=== PATIENT | female | born 1955 | race Caucasian/White ===

== ENCOUNTER 2016-09-01 10:33 | Emergency (ER) | payer OTHER ==
--- NOTE | 2016-09-01 11:38 | EDDOCDS ---
Nurse's Notes [facility] Name: Genny Branham Age: 60 yrs Sex: Female : 1955 Arrival Date: 09/01/2016 Time: 10:33 Bed Triage 3 Private MD: Ning Hall L. Diagnosis: Rash and other nonspecific skin eruption;Dermatitis, unspecified Presentation: 09/01 10:49 Presenting complaint: Patient states: has sore on right martinez and small spot on left po second toe. Adult Sepsis Screening: The patient does not have new or worsening altered mentation. Patient's respiratory rate is less than 22. Systolic blood pressure is greater than 100. Patient has a qSOFA score of 0- Negative Sepsis Screen. Suicide/Homicide risk assessment- the patient denies having any suicidal and/or homicidal ideations and does not present with any other emotional, behavioral or mental health complaints. Status: Patient is not a youth services librarian or dependent. Transition of care: patient was not received from another setting of care. 10:49 Acuity: LYNN Level 4 po 10:49 Method Of Arrival: Walkin/Carried/Asstd po Triage Assessment: 10:53 General: Appears in no apparent distress, Behavior is appropriate for age, cooperative. po Pain: Denies pain. HIV screening NA for this visit Offered previously. Neurological: No deficits noted. Respiratory: Airway is patent Respiratory effort is even, unlabored. Derm: Skin is pink, warm & dry. Historical: - Allergies: no known allergies; - Home Meds: 1. aspirin 81 mg Oral tab 1 tab once daily 2. atorvastatin 40 mg oral tab 1 tab nightly 3. Calcium + Vitamin D Oral 600 mg twice a day 4. Cardizem 120 mg Oral tab 1 tab daily 5. paroxetine HCl 40 mg Oral tab 1 tab once daily 6. Plavix 75 mg Oral tab 1 tab once daily 7. primidone 50 mg Oral tab 2 tabs twice a day 8. ropinirole 1 mg oral tab 1 tab 3 times per day 9. Symbicort 160-4.5 mcg/actuation inhalation aepb 2 puffs 2 times per day 10. Vitamin D Oral 50,000 unit weekly - PMHx: COPD; essential tremors; neuropathy; restless leg syndrome; PVD; - PSHx: Tonsillectomy; removal malignant melanoma rt leg; - Social history: Smoking status: Patient uses tobacco products, light tobacco smoker. No barriers to communication noted, The patient speaks fluent Sri Lankan. - Family history: Not pertinent. - : The pt / caregiver states he / she is on anticoagulants: Plavix. Home medication list is obtained from the patient. - Exposure Risk Screening:: None identified. Screenin:32 Screening information is obtained from the patient. Fall risk: No risks identified. ms18 Assistance ADL's: requires no assistance with activities of daily living. Abuse/DV Screen: The patient / caregiver reports he/she is: not in a situation that causes fear, pain or injury. Nutritional screening: No deficits noted. Advance Directives: There is no living will. home support is adequate. Assessment: 11:32 General: Appears in no apparent distress, comfortable, Behavior is appropriate for age, ms18 cooperative, pleasant. Pain: Denies pain. Neurological: No deficits noted. Respiratory: No deficits noted. Derm: Skin is pink, warm & dry. pt has a blister to her L lower leg, mid martinez. No bleeding, scabbed over. Vital Signs: 10:36 BP 156 / 83; Pulse 50; Resp 18; Temp 97.8(O); Pulse Ox 99% on R/A; Weight 58.97 kg (R); sar1 Height 5 ft. 8 in. (172.72 cm) (R); Pain 0/10; 11:32 BP 129 / 73; Pulse 73; Resp 18; Pulse Ox 98% ; Pain 3/10; ms18 10:36 Body Mass Index 19.77 (58.97 kg, 172.72 cm) sar1 Vitals: 10:36 Log In Time: September 01, 2016 at 10:36. sar1 ED Course: 10:36 Patient visited by Pippa Earl, Meat Washer. sar1 10:36 Ning Hall is Private Physician. sar1 10:36 Patient moved to Waiting sar1 10:38 Patient moved to Pre RCE sar1 10:51 Triage Initiated po 10:53 Arm band placed on right wrist. Patient placed in waiting room. po 10:56 Patient visited by Jose D Johansen RN. po 11:00 Patient moved to Triage 3 mlb1 11:13 [facility] cc10 11:13 Genny Katz MD is Attending Physician. cc10 11:13 Patient visited by José Romo PA-C. cc10 11:13 Patient visited by José Romo PA-C. cc10 11:29 Ning Hall is Referral Physician. cc10 11:32 Patient visited by Margarita Patiño,LAYA. ms18 11:32 The patient / caregiver is instructed regarding the plan of care and ED course. ms18 Accompanied by Significant Other, Patient has correct armband on for positive identification. Property :Personal belongings accompany Pt. 11:32 No IV's were initiated during this patient's visit. No procedures done that require ms18 assistance. Order Results: There are currently no results for this order. Outcome: 11:29 Discharge ordered by Provider. cc10 11:32 Discharge Assessment: Patient awake, alert and oriented x 3. No cognitive and/or ms18 functional deficits noted. Patient verbalized understanding of disposition instructions. patient administered narcotics - no. The following High Risk Discharge criteria are identified: None. Discharged to home ambulatory, with significant other. Condition: good Condition: stable Condition: improved. Discharge instructions given to patient, Instructed on discharge instructions, follow up and referral plans. Demonstrated understanding of instructions, Pt was receptive of discharge instructions/ teaching. No special radiology studies were completed. 11:38 Patient left the ED. ms18 Signatures: Jose D Johansen,RN RN Sebastien Smith RN RN mlb1 José Romo PA-C PA-C cc10 Margarita Patiño,LAYA RN ms18 Pippa Earl, Meat Washer Unit [facility] Corrections: (The following items were deleted from the chart) 11:04 10:53 The pt / caregiver states he / she is not on anticoagulants. po po MTDD
--- NOTE | 2016-09-01 11:38 | EDDOCDS ---
Physician Documentation [facility] Name: Genny Branham Age: 60 yrs Sex: Female : 1955 Arrival Date: 09/01/2016 Time: 10:33 Bed Triage 3 Private MD: Ning Hall L. Disposition: 09/01/16 11:29 Discharged to Home/Self Care. Impression: Rash and other nonspecific skin eruption, Dermatitis, unspecified. - Condition is Stable. - Discharge Instructions: Blister, Hand Dermatitis, Rash. - Medication Reconciliation form. - Follow up: Emergency Department; When: As needed. Follow up: Ning Hall; When: Call to arrange an appointment; Reason: Wound/Symptom Recheck, Recheck today's complaints, Worsening of conditions, Continuance of care. - Problem is an ongoing problem. - Symptoms are unchanged. Historical: - Allergies: no known allergies; - Home Meds: 1. aspirin 81 mg Oral tab 1 tab once daily 2. atorvastatin 40 mg oral tab 1 tab nightly 3. Calcium + Vitamin D Oral 600 mg twice a day 4. Cardizem 120 mg Oral tab 1 tab daily 5. paroxetine HCl 40 mg Oral tab 1 tab once daily 6. Plavix 75 mg Oral tab 1 tab once daily 7. primidone 50 mg Oral tab 2 tabs twice a day 8. ropinirole 1 mg oral tab 1 tab 3 times per day 9. Symbicort 160-4.5 mcg/actuation inhalation aepb 2 puffs 2 times per day 10. Vitamin D Oral 50,000 unit weekly - PMHx: COPD; essential tremors; neuropathy; restless leg syndrome; PVD; - PSHx: Tonsillectomy; removal malignant melanoma rt leg; - Social history: Smoking status: Patient uses tobacco products, light tobacco smoker. No barriers to communication noted, The patient speaks fluent British. - Family history: Not pertinent. - : The pt / caregiver states he / she is on anticoagulants: Plavix. Home medication list is obtained from the patient. - Exposure Risk Screening:: None identified. Vital Signs: 09/01 10:36 BP 156 / 83; Pulse 50; Resp 18; Temp 97.8(O); Pulse Ox 99% on R/A; Weight 58.97 kg / sar1 130.01 lbs (R); Height 5 ft. 8 in. (172.72 cm) (R); Pain 0/10; 11:32 BP 129 / 73; Pulse 73; Resp 18; Pulse Ox 98% ; Pain 3/10; ms18 10:36 Body Mass Index 19.77 (58.97 kg, 172.72 cm) sar1 MDM: 11:35 Financial registration complete. mm15 Signatures: Jose D Johansen RN RN po Jc Mendez mm15 José Romo PAJoyC PA-C cc10 Margarita Patiño RN RN ms18 The chart was reviewed and I authenticate all verbal orders and agree with the evaluation and treatment provided.Corrections: (The following items were deleted from the chart) 11:04 10:53 The pt / caregiver states he / she is not on anticoagulants. po po MTDD
--- NOTE | 2016-09-03 12:38 | EDDOCDS ---
Physician Documentation [facility] Name: Genny Branham Age: 60 yrs Sex: Female : 1955 Arrival Date: 09/01/2016 Time: 10:33 Bed Triage 3 Private MD: Ning Hall L. Disposition: 09/01/16 11:29 Discharged to Home/Self Care. Impression: Rash and other nonspecific skin eruption, Dermatitis, unspecified. - Condition is Stable. - Discharge Instructions: Blister, Hand Dermatitis, Rash. - Medication Reconciliation form. - Follow up: Emergency Department; When: As needed. Follow up: Ning Hall; When: Call to arrange an appointment; Reason: Wound/Symptom Recheck, Recheck today's complaints, Worsening of conditions, Continuance of care. - Problem is an ongoing problem. - Symptoms are unchanged. Historical: - Allergies: no known allergies; - Home Meds: 1. aspirin 81 mg Oral tab 1 tab once daily 2. atorvastatin 40 mg oral tab 1 tab nightly 3. Calcium + Vitamin D Oral 600 mg twice a day 4. Cardizem 120 mg Oral tab 1 tab daily 5. paroxetine HCl 40 mg Oral tab 1 tab once daily 6. Plavix 75 mg Oral tab 1 tab once daily 7. primidone 50 mg Oral tab 2 tabs twice a day 8. ropinirole 1 mg oral tab 1 tab 3 times per day 9. Symbicort 160-4.5 mcg/actuation inhalation aepb 2 puffs 2 times per day 10. Vitamin D Oral 50,000 unit weekly - PMHx: COPD; essential tremors; neuropathy; restless leg syndrome; PVD; - PSHx: Tonsillectomy; removal malignant melanoma rt leg; - Social history: Smoking status: Patient uses tobacco products, light tobacco smoker. No barriers to communication noted, The patient speaks fluent Bulgarian. - Family history: Not pertinent. - : The pt / caregiver states he / she is on anticoagulants: Plavix. Home medication list is obtained from the patient. - Exposure Risk Screening:: None identified. Vital Signs: 09/01 10:36 BP 156 / 83; Pulse 50; Resp 18; Temp 97.8(O); Pulse Ox 99% on R/A; Weight 58.97 kg / sar1 130.01 lbs (R); Height 5 ft. 8 in. (172.72 cm) (R); Pain 0/10; 11:32 BP 129 / 73; Pulse 73; Resp 18; Pulse Ox 98% ; Pain 3/10; ms18 10:36 Body Mass Index 19.77 (58.97 kg, 172.72 cm) sar1 MDM: 11:35 Financial registration complete. mm15 12:55 [facility] Payment Agreement was scanned into [employer] and attached to record. mm15 17:00 T-Sheet-- Draft Copy was scanned into [employer] and attached to record. klr Signatures: Jose D Johansen,RN RN po Jc Mendez mm15 José Romo PAJoyC PAJoyC cc10 Margarita Patiño RN RN ms18 Allison Quiroz klr The chart was reviewed and I authenticate all verbal orders and agree with the evaluation and treatment provided.Corrections: (The following items were deleted from the chart) 11:04 10:53 The pt / caregiver states he / she is not on anticoagulants. po po Attachments: 12:55 [facility] [place] Payment Agreement mm15 17:00 T-Sheet-- Draft Copy klr Chart Complete MTDD
--- NOTE | 2016-09-03 12:38 | EDDOCDS ---
Physician Documentation [facility] Name: Genny Branham Age: 60 yrs Sex: Female : 1955 Arrival Date: 09/01/2016 Time: 10:33 Bed Triage 3 Private MD: Ning Hall L. Disposition: 09/01/16 11:29 Discharged to Home/Self Care. Impression: Rash and other nonspecific skin eruption, Dermatitis, unspecified. - Condition is Stable. - Discharge Instructions: Blister, Hand Dermatitis, Rash. - Medication Reconciliation form. - Follow up: Emergency Department; When: As needed. Follow up: Ning Hall; When: Call to arrange an appointment; Reason: Wound/Symptom Recheck, Recheck today's complaints, Worsening of conditions, Continuance of care. - Problem is an ongoing problem. - Symptoms are unchanged. Historical: - Allergies: no known allergies; - Home Meds: 1. aspirin 81 mg Oral tab 1 tab once daily 2. atorvastatin 40 mg oral tab 1 tab nightly 3. Calcium + Vitamin D Oral 600 mg twice a day 4. Cardizem 120 mg Oral tab 1 tab daily 5. paroxetine HCl 40 mg Oral tab 1 tab once daily 6. Plavix 75 mg Oral tab 1 tab once daily 7. primidone 50 mg Oral tab 2 tabs twice a day 8. ropinirole 1 mg oral tab 1 tab 3 times per day 9. Symbicort 160-4.5 mcg/actuation inhalation aepb 2 puffs 2 times per day 10. Vitamin D Oral 50,000 unit weekly - PMHx: COPD; essential tremors; neuropathy; restless leg syndrome; PVD; - PSHx: Tonsillectomy; removal malignant melanoma rt leg; - Social history: Smoking status: Patient uses tobacco products, light tobacco smoker. No barriers to communication noted, The patient speaks fluent Vincentian. - Family history: Not pertinent. - : The pt / caregiver states he / she is on anticoagulants: Plavix. Home medication list is obtained from the patient. - Exposure Risk Screening:: None identified. Vital Signs: 09/01 10:36 BP 156 / 83; Pulse 50; Resp 18; Temp 97.8(O); Pulse Ox 99% on R/A; Weight 58.97 kg / sar1 130.01 lbs (R); Height 5 ft. 8 in. (172.72 cm) (R); Pain 0/10; 11:32 BP 129 / 73; Pulse 73; Resp 18; Pulse Ox 98% ; Pain 3/10; ms18 10:36 Body Mass Index 19.77 (58.97 kg, 172.72 cm) sar1 MDM: 11:35 Financial registration complete. mm15 12:55 [facility] Payment Agreement was scanned into [employer] and attached to record. mm15 17:00 T-Sheet-- Draft Copy was scanned into [employer] and attached to record. klr Signatures: Jose D Johansen,RN RN po Jc Mendez mm15 José Romo PAJoyC PAJoyC cc10 Margarita Patiño RN RN ms18 Allison Quiroz klr The chart was reviewed and I authenticate all verbal orders and agree with the evaluation and treatment provided.Corrections: (The following items were deleted from the chart) 11:04 10:53 The pt / caregiver states he / she is not on anticoagulants. po po Attachments: 12:55 [facility] [place] Payment Agreement mm15 17:00 T-Sheet-- Draft Copy klr Chart Complete MTDD
--- NOTE | 2016-09-03 12:38 | EDDOCDS ---
Nurse's Notes [facility] Name: Genny Branham Age: 60 yrs Sex: Female : 1955 Arrival Date: 09/01/2016 Time: 10:33 Bed Triage 3 Private MD: Ning Hall L. Diagnosis: Rash and other nonspecific skin eruption;Dermatitis, unspecified Presentation: 09/01 10:49 Presenting complaint: Patient states: has sore on right martinez and small spot on left po second toe. Adult Sepsis Screening: The patient does not have new or worsening altered mentation. Patient's respiratory rate is less than 22. Systolic blood pressure is greater than 100. Patient has a qSOFA score of 0- Negative Sepsis Screen. Suicide/Homicide risk assessment- the patient denies having any suicidal and/or homicidal ideations and does not present with any other emotional, behavioral or mental health complaints. Status: Patient is not a financial services auditor or dependent. Transition of care: patient was not received from another setting of care. 10:49 Acuity: LYNN Level 4 po 10:49 Method Of Arrival: Walkin/Carried/Asstd po Triage Assessment: 10:53 General: Appears in no apparent distress, Behavior is appropriate for age, cooperative. po Pain: Denies pain. HIV screening NA for this visit Offered previously. Neurological: No deficits noted. Respiratory: Airway is patent Respiratory effort is even, unlabored. Derm: Skin is pink, warm & dry. Historical: - Allergies: no known allergies; - Home Meds: 1. aspirin 81 mg Oral tab 1 tab once daily 2. atorvastatin 40 mg oral tab 1 tab nightly 3. Calcium + Vitamin D Oral 600 mg twice a day 4. Cardizem 120 mg Oral tab 1 tab daily 5. paroxetine HCl 40 mg Oral tab 1 tab once daily 6. Plavix 75 mg Oral tab 1 tab once daily 7. primidone 50 mg Oral tab 2 tabs twice a day 8. ropinirole 1 mg oral tab 1 tab 3 times per day 9. Symbicort 160-4.5 mcg/actuation inhalation aepb 2 puffs 2 times per day 10. Vitamin D Oral 50,000 unit weekly - PMHx: COPD; essential tremors; neuropathy; restless leg syndrome; PVD; - PSHx: Tonsillectomy; removal malignant melanoma rt leg; - Social history: Smoking status: Patient uses tobacco products, light tobacco smoker. No barriers to communication noted, The patient speaks fluent Swedish. - Family history: Not pertinent. - : The pt / caregiver states he / she is on anticoagulants: Plavix. Home medication list is obtained from the patient. - Exposure Risk Screening:: None identified. Screenin:32 Screening information is obtained from the patient. Fall risk: No risks identified. ms18 Assistance ADL's: requires no assistance with activities of daily living. Abuse/DV Screen: The patient / caregiver reports he/she is: not in a situation that causes fear, pain or injury. Nutritional screening: No deficits noted. Advance Directives: There is no living will. home support is adequate. Assessment: 11:32 General: Appears in no apparent distress, comfortable, Behavior is appropriate for age, ms18 cooperative, pleasant. Pain: Denies pain. Neurological: No deficits noted. Respiratory: No deficits noted. Derm: Skin is pink, warm & dry. pt has a blister to her L lower leg, mid martinez. No bleeding, scabbed over. Vital Signs: 10:36 BP 156 / 83; Pulse 50; Resp 18; Temp 97.8(O); Pulse Ox 99% on R/A; Weight 58.97 kg (R); sar1 Height 5 ft. 8 in. (172.72 cm) (R); Pain 0/10; 11:32 BP 129 / 73; Pulse 73; Resp 18; Pulse Ox 98% ; Pain 3/10; ms18 10:36 Body Mass Index 19.77 (58.97 kg, 172.72 cm) sar1 Vitals: 10:36 Log In Time: September 01, 2016 at 10:36. sar1 ED Course: 10:36 Patient visited by Pippa Earl, Web Manager. sar1 10:36 Ning Hall is Private Physician. sar1 10:36 Patient moved to Waiting sar1 10:38 Patient moved to Pre RCE sar1 10:51 Triage Initiated po 10:53 Arm band placed on right wrist. Patient placed in waiting room. po 10:56 Patient visited by Jose D Johansen RN. po 11:00 Patient moved to Triage 3 mlb1 11:13 José Rom[facility] PA-C [facility]. cc10 11:13 Genny Katz MD is Attending Physician. cc10 11:13 Patient visited by José Romo PA-C. cc10 11:13 Patient visited by José Romo PA-C. cc10 11:29 Ning Hall is Referral Physician. cc10 11:32 Patient visited by Margarita Patiño RN. ms18 11:32 The patient / caregiver is instructed regarding the plan of care and ED course. ms18 Accompanied by Significant Other, Patient has correct armband on for positive identification. Property :Personal belongings accompany Pt. 11:32 No IV's were initiated during this patient's visit. No procedures done that require ms18 assistance. 12:55 [facility] Agreement was scanned into [employer] and attached to record. mm15 17:00 T-Sheet-- Draft Copy was scanned into [employer] and attached to record. klr Order Results: There are currently no results for this order. Outcome: 11:29 Discharge ordered by Provider. cc10 11:32 Discharge Assessment: Patient awake, alert and oriented x 3. No cognitive and/or ms18 functional deficits noted. Patient verbalized understanding of disposition instructions. patient administered narcotics - no. The following High Risk Discharge criteria are identified: None. Discharged to home ambulatory, with significant other. Condition: good Condition: stable Condition: improved. Discharge instructions given to patient, Instructed on discharge instructions, follow up and referral plans. Demonstrated understanding of instructions, Pt was receptive of discharge instructions/ teaching. No special radiology studies were completed. 11:38 Patient left the ED. ms18 Signatures: Jose D JohansenRN Sebastien Villatoro RN RN mlb1 Jc Mendez mm15 José Romo PA-C PA-C cc10 Margarita Patiño,LAYA RN ms18 Pippa Earl, Web Manager Unit Allison Huerta Corrections: (The following items were deleted from the chart) 11:04 10:53 The pt / caregiver states he / she is not on anticoagulants. po po Chart Complete MTDD
== END 2016-09-01 11:38 | disposition home or self-care (01) ==
LOC: M ED 10:33
DX: L30.9 Dermatitis, unspecified (principal); R21 Rash and other nonspecific skin eruption; J44.9 Chronic obstructive pulmonary disease, unspecified; G62.9 Polyneuropathy, unspecified; G25.81 Restless legs syndrome; I73.9 Peripheral vascular disease, unspecified; G25.0 Essential tremor; Z85.820 Personal history of malignant melanoma of skin; Z72.0 Tobacco use; Z79.01 Long term (current) use of anticoagulants; Z79.82 Long term (current) use of aspirin; Z79.899 Other long term (current) drug therapy

== ENCOUNTER 2016-09-10 08:33 | Emergency (ER) | payer OTHER ==
[2016-09-10] MEDS ORDERED: METOCLOPRAMIDE INJ 10MG/2ML VIAL (J2765) As Ordered ONE (09:11)
--- NOTE | 2016-09-10 09:43 | REP ---
Clinical: Headache . Comparison: 06/15/2015 . Findings: The ventricles, sulci, and cisterns are normal in position and appearance. Thomas-white differentiation is maintained. No acute intracranial hemorrhage, mass/mass effect, pathology or trauma/injury. No evidence for acute infarction. No extra-axial fluid collection. Calvarium is intact. Paranasal sinuses and mastoid air cells are clear. Impression: Normal noncontrast head CT. No evidence for acute intracranial pathology or trauma/injury. Signed by Parth Hinojosa MD 09/10/2016 09:34 A
[2016-09-10] MEDS ORDERED: AUGMENTIN 875 MG TAB As Ordered ONE (10:16)
--- NOTE | 2016-09-10 10:21 | EDDOCDS ---
Nurse's Notes [facility] Name: Genny Branham Age: 60 yrs Sex: Female : 1955 Arrival Date: 09/10/2016 Time: 08:33 Bed I3 / M3 Private MD: Ning Hall L. Diagnosis: Headache-Acute;Acute sinusitis Presentation: 09/10 08:38 Presenting complaint: Patient states: Headaches on and off for a couple months, usually dwg in the AM. This patient has no additional risk factors. Adult Sepsis Screening: The patient does not have new or worsening altered mentation. Patient's respiratory rate is less than 22. Systolic blood pressure is greater than 100. Patient has a qSOFA score of 0- Negative Sepsis Screen. Suicide/Homicide risk assessment- the patient denies having any suicidal and/or homicidal ideations and does not present with any other emotional, behavioral or mental health complaints. 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 Transition of care: patient was not received from another setting of care. 08:38 Acuity: LYNN Level 3 dwg 08:38 Method Of Arrival: Walkin/Carried/Asstd dwg Triage Assessment: 08:45 Headache History: Other Has had headaches since 2015. General: Appears dwg uncomfortable. Pain: Pain currently is 8 out of 10 on a pain scale. HIV screening NA for this visit Offered previously. Historical: - Allergies: no known allergies; - Home Meds: 1. aspirin 81 mg Oral tab 1 tab once daily (Last dose: 09/10/2016) 2. atorvastatin 40 mg oral tab 1 tab nightly (Last dose: 09/09/2016 20:00) 3. Calcium + Vitamin D Oral 600 mg twice a day (Last dose: 09/10/2016) 4. Cardizem 120 mg Oral tab 1 tab daily (Last dose: 09/10/2016) 5. paroxetine HCl 40 mg Oral tab 1 tab once daily (Last dose: 09/10/2016) 6. Plavix 75 mg Oral tab 1 tab once daily (Last dose: 09/10/2016) 7. primidone 50 mg Oral tab 2 tabs twice a day (Last dose: 09/10/2016) 8. ropinirole 1 mg oral tab 1 tab 3 times per day (Last dose: 09/10/2016) 9. Symbicort 160-4.5 mcg/actuation inhalation aepb 2 puffs 2 times per day (Last dose: 09/10/2016) 10. Vitamin D Oral 96490 unit weekly (Last dose: 09/09/2016) - PMHx: COPD; essential tremors; Hypercholesterolemia; neuropathy; PVD; restless leg syndrome; - PSHx: Tonsillectomy; Removal of malignant melanoma right lower leg 2011; - Social history: Smoking status: Patient uses tobacco products, current every day smoker. No barriers to communication noted, The patient speaks fluent Tristanian. - Family history: Not pertinent. - : The pt / caregiver states he / she is on anticoagulants: Plavix. Home medication list is obtained from the patient. - Exposure Risk Screening:: None identified. Screenin:12 Screening information is obtained from the patient. Primary language is Tristanian. Fall jam1 risk: No risks identified. Assistance ADL's: requires no assistance with activities of daily living. Abuse/DV Screen: The patient / caregiver reports he/she is: not in a situation that causes fear, pain or injury. Nutritional screening: No deficits noted. Exposure Risk Screening: None identified. Advance Directives: Currently, there is no health care proxy. There is no active DNR order. There is no living will. There is no Power of Ophthalmology Assistant. Advance directive information has not previously been placed in an [facility] medical record. Further advance directive information is declined. home support is adequate. Assessment: 09:21 General: Appears in no apparent distress, comfortable. Pain: Location: right taoism kr3 Pain currently is 8 out of 10 on a pain scale. 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 Speech is normal, Facial symmetry appears normal. Respiratory: Respiratory effort is even, unlabored. Derm: Skin is normal. 10:18 Reassessment: Patient appears in no apparent distress at this time. Patient states kr3 feeling better. Pain: Location: right taoism Pain currently is 5 out of 10 on a pain scale. Neurological: No deficits noted. Respiratory: Respiratory effort is even, unlabored. Derm: Skin is normal. Vital Signs: 08:45 BP 151 / 83; Pulse 73; Resp 20; Temp 96.6(O); Pulse Ox 95% on R/A; Weight 56.7 kg; dwg Height 5 ft. 9 in. (175.26 cm); Pain 8/10; 10:17 BP 127 / 70; Pulse 66; Resp 16; Temp 97.8(T); Pulse Ox 96% on R/A; Pain 5/10; kr3 08:45 Body Mass Index 18.46 (56.70 kg, 175.26 cm) [facility] Vitals: 08:45 Log In Time: September 10, 2016 at 08:33. [facility] ED Course: 08:35 Patient visited by Melvin Ramon, Reg. pm4 08:35 Ning Hall is Private Physician. pm4 08:35 Patient moved to Waiting pm4 08:42 Triage Initiated dwg 08:48 Patient moved to I3 / M3 dwg 08:50 [facility] Gustaf[facility] ef1 08:50 Genny Katz MD is Attending Physician. ef1 08:50 Patient visited by Lily Gustafson PA-C. ef1 09:11 Patient visited by Lily Gustafson PA-C. ef1 09:12 Pt greeted and oriented to ED. Patient advised of names of staff involved in care, jam1 location of call stephens, wait times and NPO status. Patient has correct armband on for positive identification. Bed in low position. Call light in reach. Side rails up X 1. Door closed. 09:21 Inserted saline lock: 20 gauge in left forearm. No procedures done that require kr3 assistance. 09:23 The patient / caregiver is instructed regarding the plan of care and ED course. kr3 09:30 [facility] Payment Agreement was scanned into [employer] and attached to record. mm15 09:42 Patient visited by Lily Gustafson PA-C. ef1 09:59 CT Head Without Contrast Returned. EDMS 10:07 Patient visited by Lily Gustafson PA-C. ef1 10:14 Ning Hall is Referral Physician. ef1 10:14 Andres Walker is Referral Physician. ef1 10:17 Discontinued lock intact, bleeding controlled, pressure dressing applied, No kr3 redness/swelling at site. Administered Medications: 09:21 Drug: Metoclopramide 10 mg [metoclopramide 5 mg/mL injection solution] Route: IV; Rate: kr3 40 mg/hr; Infused Over: 15 mins; Site: left forearm; 09:47 Follow up: IV Status: Completed infusion; IV Intake: 10ml mcp 10:20 Drug: Amoxicillin-Clavulanate 1 tabs [amoxicillin 875 mg-potassium clavulanate 125 mg mcp tablet (1 tabs)] Route: PO; Intake: 09:47 IV: 10.00ml; Total: 10.00ml. mcp Order Results: Radiology Order: CT Head Without Contrast Test: CT Head Without Contrast REASON FOR EXAMINATION: Change in headaches; Clinical: Headache .; ; Comparison: 06/15/2015 .; ; Findings:; The ventricles, sulci, and cisterns are normal in position and appearance.; Thomas-white differentiation is maintained. No acute intracranial hemorrhage,; mass/mass effect, pathology or trauma/injury. No evidence for acute infarction.; No extra-axial fluid collection. Calvarium is intact. Paranasal sinuses and; mastoid air cells are clear.; ; Impression:; Normal noncontrast head CT.; No evidence for acute intracranial pathology or trauma/injury.; ; ; Signed by; Parth Hinojosa MD 09/10/2016 09:34 A; Outcome: 10:14 Discharge ordered by Provider. ef1 10:18 CT Study completed. kr3 10:20 Discharge Assessment: Patient awake, alert and oriented x 3. No cognitive and/or mcp functional deficits noted. Patient verbalized understanding of disposition instructions. patient administered narcotics - no. The following High Risk Discharge criteria are identified: None. Discharged to home ambulatory, with family. Condition: stable. Discharge instructions given to patient, Instructed on discharge instructions, follow up and referral plans. medication usage, Demonstrated understanding of instructions, medications, Pt was receptive of discharge instructions/ teaching. Prescriptions given X 3. Property sent home with patient. 10:21 Patient left the ED. [facility] Signatures: Dispatcher [employer] EDMickey Parra RN RN dwg Peters, Mary, RN RN mcp Murphy, Jane, DELIMER DELIMER jam1 Betsy Gregory RN RN kr3 Lily Gustafson, PA-C PA-C ef1 Jc Mendez mm15 Melvin Ramon, Reg Reg pm4 MTDD
--- NOTE | 2016-09-10 10:21 | EDDOCDS ---
Physician Documentation [facility] Name: Genny Branham Age: 60 yrs Sex: Female : 1955 Arrival Date: 09/10/2016 Time: 08:33 Bed I3 / M3 Private MD: Ning Hall L. Disposition: 09/10/16 10:14 Discharged to Home/Self Care. Impression: Headache - Acute, Acute sinusitis. - Condition is Stable. - Discharge Instructions: General Headache Without Cause, Sinusitis, Adult. - Prescriptions for Augmentin 875- 125 mg Oral Tablet - take 1 tablet by ORAL route every 12 hours for 10 days; 20 tablet. Claritin 10 mg Oral Tablet - take 1 tablet by ORAL route once daily As needed; 30 tablet. Mucinex 600 mg - take 1 tablet by ORAL route 2 times per day; 30 tablet. - Medication Reconciliation, Local Pharmacy Hours form. - Follow up: Ning Hall; When: 1 - 2 days; Reason: Recheck today's complaints, Continuance of care. Follow up: Emergency Department; Reason: Worsening of conditions. Follow up: Andres Walker; When: Call to arrange an appointment; Reason: Further diagnostic work-up, Recheck today's complaints, Continuance of care. - Problem is new. - Symptoms have improved. Historical: - Allergies: no known allergies; - Home Meds: 1. aspirin 81 mg Oral tab 1 tab once daily (Last dose: 09/10/2016) 2. atorvastatin 40 mg oral tab 1 tab nightly (Last dose: 09/09/2016 20:00) 3. Calcium + Vitamin D Oral 600 mg twice a day (Last dose: 09/10/2016) 4. Cardizem 120 mg Oral tab 1 tab daily (Last dose: 09/10/2016) 5. paroxetine HCl 40 mg Oral tab 1 tab once daily (Last dose: 09/10/2016) 6. Plavix 75 mg Oral tab 1 tab once daily (Last dose: 09/10/2016) 7. primidone 50 mg Oral tab 2 tabs twice a day (Last dose: 09/10/2016) 8. ropinirole 1 mg oral tab 1 tab 3 times per day (Last dose: 09/10/2016) 9. Symbicort 160-4.5 mcg/actuation inhalation aepb 2 puffs 2 times per day (Last dose: 09/10/2016) 10. Vitamin D Oral 23389 unit weekly (Last dose: 09/09/2016) - PMHx: COPD; essential tremors; Hypercholesterolemia; neuropathy; PVD; restless leg syndrome; - PSHx: Tonsillectomy; Removal of malignant melanoma right lower leg 2011; - Social history: Smoking status: Patient uses tobacco products, current every day smoker. No barriers to communication noted, The patient speaks fluent Pashto. - Family history: Not pertinent. - : The pt / caregiver states he / she is on anticoagulants: Plavix. Home medication list is obtained from the patient. - Exposure Risk Screening:: None identified. Vital Signs: 09/10 08:45 BP 151 / 83; Pulse 73; Resp 20; Temp 96.6(O); Pulse Ox 95% on R/A; Weight 56.7 kg / 125 dwg lbs; Height 5 ft. 9 in. (175.26 cm); Pain 8/10; 10:17 BP 127 / 70; Pulse 66; Resp 16; Temp 97.8(T); Pulse Ox 96% on R/A; Pain 5/10; kr3 08:45 Body Mass Index 18.46 (56.70 kg, 175.26 cm) dwg MDM: 09:08 IV Saline Lock ordered. ef1 09:08 Metoclopramide 10 mg IV at 40 mg/hr once over 15 mins ordered. ef1 09:09 CT Head Without Contrast Ordered. EDRI 09:30 Financial registration complete. mm15 09:30 REPLACED BY [facility] Payment Agreement was scanned into [employer] and attached to record. mm15 10:13 Amoxicillin-Clavulanate 875 mg 1 tabs PO once ordered. ef1 Administered Medications: 09:21 Drug: Metoclopramide 10 mg [metoclopramide 5 mg/mL injection solution] Route: IV; Rate: kr3 40 mg/hr; Infused Over: 15 mins; Site: left forearm; 09:47 Follow up: IV Status: Completed infusion; IV Intake: 10ml mcp 10:20 Drug: Amoxicillin-Clavulanate 1 tabs [amoxicillin 875 mg-potassium clavulanate 125 mg mcp tablet (1 tabs)] Route: PO; Signatures: Dispatcher [employer] Track EDMS Mickey Dickson, Shannan Wilkerson RN, RN RN mcp Feola, Erica, PAJoyC PA-C ef1 Jc Mendez mm15 Betsy Gregory RN kr3 The chart was reviewed and I authenticate all verbal orders and agree with the evaluation and treatment provided.Attachments: REPLACED BY [facility] Payment Agreement mm15 MTDD
--- NOTE | 2016-09-12 11:21 | EDDOCDS ---
Physician Documentation [facility] Name: Genny Brahnam Age: 60 yrs Sex: Female : 1955 Arrival Date: 09/10/2016 Time: 08:33 Bed I3 / M3 Private MD: Ning Hall L. Disposition: 09/10/16 10:14 Discharged to Home/Self Care. Impression: Headache - Acute, Acute sinusitis. - Condition is Stable. - Discharge Instructions: General Headache Without Cause, Sinusitis, Adult. - Prescriptions for Augmentin 875- 125 mg Oral Tablet - take 1 tablet by ORAL route every 12 hours for 10 days; 20 tablet. Claritin 10 mg Oral Tablet - take 1 tablet by ORAL route once daily As needed; 30 tablet. Mucinex 600 mg - take 1 tablet by ORAL route 2 times per day; 30 tablet. - Medication Reconciliation, Local Pharmacy Hours form. - Follow up: Ning Hall; When: 1 - 2 days; Reason: Recheck today's complaints, Continuance of care. Follow up: Emergency Department; Reason: Worsening of conditions. Follow up: Andres Walker; When: Call to arrange an appointment; Reason: Further diagnostic work-up, Recheck today's complaints, Continuance of care. - Problem is new. - Symptoms have improved. Historical: - Allergies: no known allergies; - Home Meds: 1. aspirin 81 mg Oral tab 1 tab once daily (Last dose: 09/10/2016) 2. atorvastatin 40 mg oral tab 1 tab nightly (Last dose: 09/09/2016 20:00) 3. Calcium + Vitamin D Oral 600 mg twice a day (Last dose: 09/10/2016) 4. Cardizem 120 mg Oral tab 1 tab daily (Last dose: 09/10/2016) 5. paroxetine HCl 40 mg Oral tab 1 tab once daily (Last dose: 09/10/2016) 6. Plavix 75 mg Oral tab 1 tab once daily (Last dose: 09/10/2016) 7. primidone 50 mg Oral tab 2 tabs twice a day (Last dose: 09/10/2016) 8. ropinirole 1 mg oral tab 1 tab 3 times per day (Last dose: 09/10/2016) 9. Symbicort 160-4.5 mcg/actuation inhalation aepb 2 puffs 2 times per day (Last dose: 09/10/2016) 10. Vitamin D Oral 25032 unit weekly (Last dose: 09/09/2016) - PMHx: COPD; essential tremors; Hypercholesterolemia; neuropathy; PVD; restless leg syndrome; - PSHx: Tonsillectomy; Removal of malignant melanoma right lower leg 2011; - Social history: Smoking status: Patient uses tobacco products, current every day smoker. No barriers to communication noted, The patient speaks fluent Kyrgyz. - Family history: Not pertinent. - : The pt / caregiver states he / she is on anticoagulants: Plavix. Home medication list is obtained from the patient. - Exposure Risk Screening:: None identified. Vital Signs: 09/10 08:45 BP 151 / 83; Pulse 73; Resp 20; Temp 96.6(O); Pulse Ox 95% on R/A; Weight 56.7 kg / 125 dwg lbs; Height 5 ft. 9 in. (175.26 cm); Pain 8/10; 10:17 BP 127 / 70; Pulse 66; Resp 16; Temp 97.8(T); Pulse Ox 96% on R/A; Pain 5/10; kr3 08:45 Body Mass Index 18.46 (56.70 kg, 175.26 cm) dwg MDM: 09:08 IV Saline Lock ordered. ef1 09:08 Metoclopramide 10 mg IV at 40 mg/hr once over 15 mins ordered. ef1 09:09 CT Head Without Contrast Ordered. EDMS 09:30 Financial registration complete. mm15 09:30 [facility] Payment Agreement was scanned into [employer] and attached to record. mm15 10:13 Amoxicillin-Clavulanate 875 mg 1 tabs PO once ordered. ef1 14:30 T-Sheet-- Draft Copy was scanned into [employer] and attached to record. gb 14:31 Radiology Report was scanned into [employer] and attached to record. gb Administered Medications: 09:21 Drug: Metoclopramide 10 mg [metoclopramide 5 mg/mL injection solution] Route: IV; Rate: kr3 40 mg/hr; Infused Over: 15 mins; Site: left forearm; 09:47 Follow up: IV Status: Completed infusion; IV Intake: 10ml mcp 10:20 Drug: Amoxicillin-Clavulanate 1 tabs [amoxicillin 875 mg-potassium clavulanate 125 mg mcp tablet (1 tabs)] Route: PO; Signatures: Dispatcher [employer] Mickey Rogers RN RN dwg Peters, Mary, RN RN mcp Barnhardt, Gloria, Reg Reg gb Lily Gustafson, ZINA PAAvery ef1 Jc Mendez mm15 Betsy Gregory RN kr3 The chart was reviewed and I authenticate all verbal orders and agree with the evaluation and treatment provided.Attachments: 09:30 [facility] Payment Agreement mm15 14:30 T-Sheet-- Draft Copy gb Chart Complete MTDD
--- NOTE | 2016-09-12 11:21 | EDDOCDS ---
Physician Documentation [facility] Name: Genny Branham Age: 60 yrs Sex: Female : 1955 Arrival Date: 09/10/2016 Time: 08:33 Bed I3 / M3 Private MD: Ning Hall L. Disposition: 09/10/16 10:14 Discharged to Home/Self Care. Impression: Headache - Acute, Acute sinusitis. - Condition is Stable. - Discharge Instructions: General Headache Without Cause, Sinusitis, Adult. - Prescriptions for Augmentin 875- 125 mg Oral Tablet - take 1 tablet by ORAL route every 12 hours for 10 days; 20 tablet. Claritin 10 mg Oral Tablet - take 1 tablet by ORAL route once daily As needed; 30 tablet. Mucinex 600 mg - take 1 tablet by ORAL route 2 times per day; 30 tablet. - Medication Reconciliation, Local Pharmacy Hours form. - Follow up: Ning Hall; When: 1 - 2 days; Reason: Recheck today's complaints, Continuance of care. Follow up: Emergency Department; Reason: Worsening of conditions. Follow up: Andres Walker; When: Call to arrange an appointment; Reason: Further diagnostic work-up, Recheck today's complaints, Continuance of care. - Problem is new. - Symptoms have improved. Historical: - Allergies: no known allergies; - Home Meds: 1. aspirin 81 mg Oral tab 1 tab once daily (Last dose: 09/10/2016) 2. atorvastatin 40 mg oral tab 1 tab nightly (Last dose: 09/09/2016 20:00) 3. Calcium + Vitamin D Oral 600 mg twice a day (Last dose: 09/10/2016) 4. Cardizem 120 mg Oral tab 1 tab daily (Last dose: 09/10/2016) 5. paroxetine HCl 40 mg Oral tab 1 tab once daily (Last dose: 09/10/2016) 6. Plavix 75 mg Oral tab 1 tab once daily (Last dose: 09/10/2016) 7. primidone 50 mg Oral tab 2 tabs twice a day (Last dose: 09/10/2016) 8. ropinirole 1 mg oral tab 1 tab 3 times per day (Last dose: 09/10/2016) 9. Symbicort 160-4.5 mcg/actuation inhalation aepb 2 puffs 2 times per day (Last dose: 09/10/2016) 10. Vitamin D Oral 35499 unit weekly (Last dose: 09/09/2016) - PMHx: COPD; essential tremors; Hypercholesterolemia; neuropathy; PVD; restless leg syndrome; - PSHx: Tonsillectomy; Removal of malignant melanoma right lower leg 2011; - Social history: Smoking status: Patient uses tobacco products, current every day smoker. No barriers to communication noted, The patient speaks fluent Sinhala. - Family history: Not pertinent. - : The pt / caregiver states he / she is on anticoagulants: Plavix. Home medication list is obtained from the patient. - Exposure Risk Screening:: None identified. Vital Signs: 09/10 08:45 BP 151 / 83; Pulse 73; Resp 20; Temp 96.6(O); Pulse Ox 95% on R/A; Weight 56.7 kg / 125 dwg lbs; Height 5 ft. 9 in. (175.26 cm); Pain 8/10; 10:17 BP 127 / 70; Pulse 66; Resp 16; Temp 97.8(T); Pulse Ox 96% on R/A; Pain 5/10; kr3 08:45 Body Mass Index 18.46 (56.70 kg, 175.26 cm) dwg MDM: 09:08 IV Saline Lock ordered. ef1 09:08 Metoclopramide 10 mg IV at 40 mg/hr once over 15 mins ordered. ef1 09:09 CT Head Without Contrast Ordered. EDMS 09:30 Financial registration complete. mm15 09:30 [facility] Payment Agreement was scanned into [employer] and attached to record. mm15 10:13 Amoxicillin-Clavulanate 875 mg 1 tabs PO once ordered. ef1 14:30 T-Sheet-- Draft Copy was scanned into [employer] and attached to record. gb 14:31 Radiology Report was scanned into [employer] and attached to record. gb Administered Medications: 09:21 Drug: Metoclopramide 10 mg [metoclopramide 5 mg/mL injection solution] Route: IV; Rate: kr3 40 mg/hr; Infused Over: 15 mins; Site: left forearm; 09:47 Follow up: IV Status: Completed infusion; IV Intake: 10ml mcp 10:20 Drug: Amoxicillin-Clavulanate 1 tabs [amoxicillin 875 mg-potassium clavulanate 125 mg mcp tablet (1 tabs)] Route: PO; Signatures: Dispatcher [employer] Mickey Rogers RN RN dwg Peters, Mary, RN RN mcp Barnhardt, Gloria, Reg Reg gb Lily Gustafson, ZINA PAAvery ef1 Jc Mendez mm15 Betsy Gregory RN kr3 The chart was reviewed and I authenticate all verbal orders and agree with the evaluation and treatment provided.Attachments: 09:30 [facility] Payment Agreement mm15 14:30 T-Sheet-- Draft Copy gb Chart Complete MTDD
--- NOTE | 2016-09-12 11:22 | EDDOCDS ---
Nurse's Notes [facility] Name: Genny Branham Age: 60 yrs Sex: Female : 1955 Arrival Date: 09/10/2016 Time: 08:33 Bed I3 / M3 Private MD: Ning Hall L. Diagnosis: Headache-Acute;Acute sinusitis Presentation: 09/10 08:38 Presenting complaint: Patient states: Headaches on and off for a couple months, usually dwg in the AM. This patient has no additional risk factors. Adult Sepsis Screening: The patient does not have new or worsening altered mentation. Patient's respiratory rate is less than 22. Systolic blood pressure is greater than 100. Patient has a qSOFA score of 0- Negative Sepsis Screen. Suicide/Homicide risk assessment- the patient denies having any suicidal and/or homicidal ideations and does not present with any other emotional, behavioral or mental health complaints. Status: Patient is not a office services coordinator or dependent. Transition of care: patient was not received from another setting of care. 08:38 Acuity: LYNN Level 3 dwg 08:38 Method Of Arrival: Walkin/Carried/Asstd dwg Triage Assessment: 08:45 Headache History: Other Has had headaches since 2015. General: Appears dwg uncomfortable. Pain: Pain currently is 8 out of 10 on a pain scale. HIV screening NA for this visit Offered previously. Historical: - Allergies: no known allergies; - Home Meds: 1. aspirin 81 mg Oral tab 1 tab once daily (Last dose: 09/10/2016) 2. atorvastatin 40 mg oral tab 1 tab nightly (Last dose: 09/09/2016 20:00) 3. Calcium + Vitamin D Oral 600 mg twice a day (Last dose: 09/10/2016) 4. Cardizem 120 mg Oral tab 1 tab daily (Last dose: 09/10/2016) 5. paroxetine HCl 40 mg Oral tab 1 tab once daily (Last dose: 09/10/2016) 6. Plavix 75 mg Oral tab 1 tab once daily (Last dose: 09/10/2016) 7. primidone 50 mg Oral tab 2 tabs twice a day (Last dose: 09/10/2016) 8. ropinirole 1 mg oral tab 1 tab 3 times per day (Last dose: 09/10/2016) 9. Symbicort 160-4.5 mcg/actuation inhalation aepb 2 puffs 2 times per day (Last dose: 09/10/2016) 10. Vitamin D Oral 47207 unit weekly (Last dose: 09/09/2016) - PMHx: COPD; essential tremors; Hypercholesterolemia; neuropathy; PVD; restless leg syndrome; - PSHx: Tonsillectomy; Removal of malignant melanoma right lower leg 2011; - Social history: Smoking status: Patient uses tobacco products, current every day smoker. No barriers to communication noted, The patient speaks fluent Haitian. - Family history: Not pertinent. - : The pt / caregiver states he / she is on anticoagulants: Plavix. Home medication list is obtained from the patient. - Exposure Risk Screening:: None identified. Screenin:12 Screening information is obtained from the patient. Primary language is Haitian. Fall jam1 risk: No risks identified. Assistance ADL's: requires no assistance with activities of daily living. Abuse/DV Screen: The patient / caregiver reports he/she is: not in a situation that causes fear, pain or injury. Nutritional screening: No deficits noted. Exposure Risk Screening: None identified. Advance Directives: Currently, there is no health care proxy. There is no active DNR order. There is no living will. There is no Power of Engineering Recruiter. Advance directive information has not previously been placed in an [facility] medical record. Further advance directive information is declined. home support is adequate. Assessment: 09:21 General: Appears in no apparent distress, comfortable. Pain: Location: right hoahaoism kr3 Pain currently is 8 out of 10 on a pain scale. Neurological: Level of Consciousness is awake, alert, Oriented to person, place, time, Slate Roofer are equal bilaterally Moves all extremities. Speech is normal, Facial symmetry appears normal. Respiratory: Respiratory effort is even, unlabored. Derm: Skin is normal. 10:18 Reassessment: Patient appears in no apparent distress at this time. Patient states kr3 feeling better. Pain: Location: right hoahaoism Pain currently is 5 out of 10 on a pain scale. Neurological: No deficits noted. Respiratory: Respiratory effort is even, unlabored. Derm: Skin is normal. Vital Signs: 08:45 BP 151 / 83; Pulse 73; Resp 20; Temp 96.6(O); Pulse Ox 95% on R/A; Weight 56.7 kg; dwg Height 5 ft. 9 in. (175.26 cm); Pain 8/10; 10:17 BP 127 / 70; Pulse 66; Resp 16; Temp 97.8(T); Pulse Ox 96% on R/A; Pain 5/10; kr3 08:45 Body Mass Index 18.46 (56.70 kg, 175.26 cm) [facility] Vitals: 08:45 Log In Time: September 10, 2016 at 08:33. [facility] ED Course: 08:35 Patient visited by Melvin Ramon, Reg. pm4 08:35 Ning Hall is Private Physician. pm4 08:35 Patient moved to Waiting pm4 08:42 Triage Initiated dwg 08:48 Patient moved to I3 / M3 dwg 08:50 [facility] ef1 08:50 Genny Katz MD is Attending Physician. ef1 08:50 Patient visited by Lily Gustafson PA-C. ef1 09:11 Patient visited by Lily Gustafson PA-C. ef1 09:12 Pt greeted and oriented to ED. Patient advised of names of staff involved in care, jam1 location of call stephens, wait times and NPO status. Patient has correct armband on for positive identification. Bed in low position. Call light in reach. Side rails up X 1. Door closed. 09:21 Inserted saline lock: 20 gauge in left forearm. No procedures done that require kr3 assistance. 09:23 The patient / caregiver is instructed regarding the plan of care and ED course. kr3 09:30 [facility] Payment Agreement was scanned into [employer] and attached to record. mm15 09:42 Patient visited by Lily Gustafson PA-C. ef1 09:59 CT Head Without Contrast Returned. EDMS 10:07 Patient visited by Lily Gustafson PA-C. ef1 10:14 Ning Hall is Referral Physician. ef1 10:14 Andres Walker is Referral Physician. ef1 10:17 Discontinued lock intact, bleeding controlled, pressure dressing applied, No kr3 redness/swelling at site. 14:30 T-Sheet-- Draft Copy was scanned into [employer] and attached to record. gb 14:31 Radiology Report was scanned into [employer] and attached to record. gb Administered Medications: 09:21 Drug: Metoclopramide 10 mg [metoclopramide 5 mg/mL injection solution] Route: IV; Rate: kr3 40 mg/hr; Infused Over: 15 mins; Site: left forearm; 09:47 Follow up: IV Status: Completed infusion; IV Intake: 10ml mcp 10:20 Drug: Amoxicillin-Clavulanate 1 tabs [amoxicillin 875 mg-potassium clavulanate 125 mg mcp tablet (1 tabs)] Route: PO; Intake: 09:47 IV: 10.00ml; Total: 10.00ml. mcp Order Results: Radiology Order: CT Head Without Contrast Test: CT Head Without Contrast REASON FOR EXAMINATION: Change in headaches; Clinical: Headache .; ; Comparison: 06/15/2015 .; ; Findings:; The ventricles, sulci, and cisterns are normal in position and appearance.; Thomas-white differentiation is maintained. No acute intracranial hemorrhage,; mass/mass effect, pathology or trauma/injury. No evidence for acute infarction.; No extra-axial fluid collection. Calvarium is intact. Paranasal sinuses and; mastoid air cells are clear.; ; Impression:; Normal noncontrast head CT.; No evidence for acute intracranial pathology or trauma/injury.; ; ; Signed by; Parth Hinojosa MD 09/10/2016 09:34 A; Outcome: 10:14 Discharge ordered by Provider. ef1 10:18 CT Study completed. kr3 10:20 Discharge Assessment: Patient awake, alert and oriented x 3. No cognitive and/or mcp functional deficits noted. Patient verbalized understanding of disposition instructions. patient administered narcotics - no. The following High Risk Discharge criteria are identified: None. Discharged to home ambulatory, with family. Condition: stable. Discharge instructions given to patient, Instructed on discharge instructions, follow up and referral plans. medication usage, Demonstrated understanding of instructions, medications, Pt was receptive of discharge instructions/ teaching. Prescriptions given X 3. Property sent home with patient. 10:21 Patient left the ED. [facility] Signatures: [facility] Mickey Dickson RN RN dwg Peters, Mary, RN RN mcp Murphy, Jane, ROLL HAND ROLL HAND jam1 Raissa Russell, Reg Reg Betsy Garibay RN RN frannie3 Lily Gustafson, PA-C PA-C ef1 Jc Mendez mm15 Melvin Ramon, Reg Reg pm4 Chart Complete MTDD
== END 2016-09-10 10:21 | disposition home or self-care (01) ==
LOC: M ED 08:33
DX: R51 Headache (principal); J01.90 Acute sinusitis, unspecified; J44.9 Chronic obstructive pulmonary disease, unspecified; G25.0 Essential tremor; E78.00 Pure hypercholesterolemia, unspecified; G60.9 Hereditary and idiopathic neuropathy, unspecified; G25.81 Restless legs syndrome; I73.9 Peripheral vascular disease, unspecified; F17.210 Nicotine dependence, cigarettes, uncomplicated; Z79.02 Long term (current) use of antithrombotics/antiplatelets; Z79.82 Long term (current) use of aspirin; Z79.899 Other long term (current) drug therapy
CPT/HCPCS: 70450; 96365; 99284; J2765

== ENCOUNTER → 2016-09-16 | Outpatient (REF) | payer OTHER ==
[2016-09-16 15:58] LABS: MEAN CORPUSCULAR HEMOGLOBIN 35.3 pg (27.0-33.0); MEAN CORPUSCULAR HGB CONC 33.7 g/dl (32.0-36.5); MEAN CORPUSCULAR VOLUME 104.8 fl (80.0-96.0); RED CELL DISTRIBUTION WIDTH 13.1 % (11.5-14.5); WHITE BLOOD COUNT 9.6 K/mm3 (4.0-10.0)
[2016-09-16 16:26] LABS: ALBUMIN 4.2 GM/DL (3.2-5.2); ALBUMIN/GLOBULIN RATIO 1.56 (1.00-1.93); ALKALINE PHOSPHATASE 79 U/L (45-117); ALT/SGPT 34 U/L (12-78); ANION GAP 6 MEQ/L (8-16); AST/SGOT 20 U/L (15-37); BILIRUBIN,TOTAL 0.4 MG/DL (0.2-1.0); BLOOD UREA NITROGEN 16 MG/DL (7-18); CALCIUM LEVEL 8.9 MG/DL (8.5-10.1); CARBON DIOXIDE LEVEL 31 MEQ/L (21-32); CHLORIDE LEVEL 104 MEQ/L (98-107); CREATININE FOR GFR 0.69 MG/DL (0.55-1.02); GLOMERULAR FILTRATION RATE > 60.0 (>51); GLUCOSE, FASTING 92 MG/DL (70-105); POTASSIUM SERUM 4.8 MEQ/L (3.5-5.1); SODIUM LEVEL 141 MEQ/L (136-145); TOTAL PROTEIN 6.9 GM/DL (6.4-8.2)
[2016-09-16 16:45] LABS: VITAMIN B12 LEVEL 548 PG/ML (247-911)
== END ==
LOC: M SFHCPLAZ 11:58
PROVIDERS: ATTEND Nurse Practitioner Adult Health
DX: R53.83 Other fatigue (principal); R63.4 Abnormal weight loss; M79.1 Myalgia; M25.50 Pain in unspecified joint

== ENCOUNTER 2016-09-27 06:20 | Emergency (ER) | payer OTHER ==
--- NOTE | 2016-09-27 07:49 | EDDOCDS ---
Physician Documentation [facility] Name: Genny Branham Age: 60 yrs Sex: Female : 1955 Arrival Date: 09/27/2016 Time: 06:20 Bed 15 Private MD: Disposition: 09/27/16 07:41 Patient has left against medical advice. Impression: Polyneuropathy, unspecified. - Patients states they are going to Home/Self Care. - Condition is Fair. - Discharge Instructions: Neuropathic Pain. Medication Reconciliation, Local Pharmacy Hours form. Follow up: Ning Hall; When: Call to arrange an appointment; Reason: Recheck today's complaints, Continuance of care. - Problem is an ongoing problem. - Symptoms are unchanged. Historical: - Allergies: No known drug Allergies; - Home Meds: 1. aspirin 81 mg Oral tab 1 tab once daily (Last dose: 09/26/2016) 2. atorvastatin 40 mg oral tab 1 tab nightly 3. Calcium + Vitamin D Oral 600 mg twice a day 4. Cardizem 120 mg Oral tab 1 tab daily 5. paroxetine HCl 40 mg Oral tab 1 tab once daily 6. Cymbalta 30 mg Oral cpDR 1 cap once daily 7. Plavix 75 mg Oral tab 1 tab once daily 8. ropinirole 1 mg oral tab 1 tab twice a day 1 tab in AM, 2 tabs at night 9. Symbicort 160-4.5 mcg/actuation inhalation aepb 2 puffs 2 times per day 10. Vitamin D Oral 41693 unit weekly 11. primidone 50 mg Oral tab 2 tabs twice a day 12. Vitamin B-12 Unknown Oral daily - PMHx: COPD; essential tremors; PVD; restless leg syndrome; neuropathy; raynauds syndrome; - PSHx: Tonsillectomy; Removal of malignant melanoma right lower leg 2011; - Social history: Smoking status: Patient uses tobacco products, heavy tobacco smoker. No barriers to communication noted, The patient speaks fluent Ukrainian. - Family history: Father has/had cancer, cardiac disorder. - : The pt / caregiver states he / she is on anticoagulants: Plavix. Home medication list is obtained from the patient, [employer] import data. - Exposure Risk Screening:: None identified. Vital Signs: 09/27 06:31 BP 127 / 82; Pulse 85; Resp 20; Temp 99.3; Weight 58.97 kg / 130.01 lbs; Height 5 ft. 8 [facility] [place]. (172.72 cm); 06:44 Pulse Ox 100% on R/A; kb5 07:36 BP 125 / 76; Pulse 81; Resp 16; Temp 98.7(O); Pulse Ox 99% on R/A; js13 06:31 Body Mass Index 19.77 (58.97 kg, 172.72 cm) [facility] MDM: 07:46 ED course: I discussed case with resident physician however patient left AMA prior to sd1 my examination. 07:47 Financial registration complete. mm15 07:47 [facility] Payment Agreement was scanned into [employer] and attached to record. mm15 Signatures: Genny Katz MD MD sd1 Nelida Grier,RN RN js13 Jc Mendez mm15 Barbie Crain RN RN [facility] Sahara Moreno DO DO jo4 The chart was reviewed and I authenticate all verbal orders and agree with the evaluation and treatment provided.Attachments: 07:47 [facility] Payment Agreement mm15 MTDD
--- NOTE | 2016-09-27 07:49 | EDDOCDS ---
Nurse's Notes [facility] Name: Genny Branham Age: 60 yrs Sex: Female : 1955 Arrival Date: 09/27/2016 Time: 06:20 Bed 15 Private MD: Diagnosis: Polyneuropathy, unspecified Presentation: 09/27 06:25 Presenting complaint: Patient states: pt states she has poor circulation, causing pain mlc in hands/feet. pt also reports that her temp has been fluctuating. c/o swollen mid-back. c/o chest tightness and labored breathing. Adult Sepsis Screening: The patient does not have new or worsening altered mentation. Patient's respiratory rate is less than 22. Systolic blood pressure is greater than 100. Patient has a qSOFA score of 0- Negative Sepsis Screen. Suicide/Homicide risk assessment- the patient denies having any suicidal and/or homicidal ideations and does not present with any other emotional, behavioral or mental health complaints. Status: Patient is not a customer service correspondence clerk or dependent. Transition of care: patient was not received from another setting of care. 06:25 Acuity: LYNN Level 3 mlc 06:25 Method Of Arrival: Walkin/Carried/Asstd mlc Triage Assessment: 06:31 General: Appears in no apparent distress, uncomfortable, Behavior is anxious, crying. mlc General: Reports fatigue for. Pain:. HIV screening NA for this visit Offered previously. The patient is triaged at the bedside. See Assessment in Nurses Notes section of ED record. Neurological: Level of Consciousness is awake, alert, obeys commands, Oriented to person, place, time. Neurological: Tingling in right hand, left hand, right foot, left foot, right arm and left arm. Respiratory: Airway is patent Respiratory effort is even, unlabored, Respiratory pattern is regular. Derm: Skin is normal, fingertips cyanotic. Historical: - Allergies: No known drug Allergies; - Home Meds: 1. aspirin 81 mg Oral tab 1 tab once daily (Last dose: 09/26/2016) 2. atorvastatin 40 mg oral tab 1 tab nightly 3. Calcium + Vitamin D Oral 600 mg twice a day 4. Cardizem 120 mg Oral tab 1 tab daily 5. paroxetine HCl 40 mg Oral tab 1 tab once daily 6. Cymbalta 30 mg Oral cpDR 1 cap once daily 7. Plavix 75 mg Oral tab 1 tab once daily 8. ropinirole 1 mg oral tab 1 tab twice a day 1 tab in AM, 2 tabs at night 9. Symbicort 160-4.5 mcg/actuation inhalation aepb 2 puffs 2 times per day 10. Vitamin D Oral 35888 unit weekly 11. primidone 50 mg Oral tab 2 tabs twice a day 12. Vitamin B-12 Unknown Oral daily - PMHx: COPD; essential tremors; PVD; restless leg syndrome; neuropathy; raynauds syndrome; - PSHx: Tonsillectomy; Removal of malignant melanoma right lower leg 2011; - Social history: Smoking status: Patient uses tobacco products, heavy tobacco smoker. No barriers to communication noted, The patient speaks fluent Norwegian. - Family history: Father has/had cancer, cardiac disorder. - : The pt / caregiver states he / she is on anticoagulants: Plavix. Home medication list is obtained from the patient, [email or web address] import data. - Exposure Risk Screening:: None identified. Screenin:37 Screening information is obtained from the patient. Fall risk: No risks identified. mlc Assistance ADL's: requires no assistance with activities of daily living. Abuse/DV Screen: The patient / caregiver reports he/she is: not in a situation that causes fear, pain or injury. Nutritional screening: No deficits noted. Advance Directives: Currently, there is no health care proxy. There is no Power of Data Collection Interviewer. home support is adequate. Assessment: 07:01 General: Appears uncomfortable, Behavior is anxious, c/o pins and needles in bilateral af2 hands, states that right side of back is more swollen than left, reports she feels "tight" all over. . Neurological: Level of Consciousness is awake, alert, obeys commands, Oriented to person, place, time. Cardiovascular: Heart tones S1 S2 present. Respiratory: Airway is patent Respiratory effort is even, unlabored, Breath sounds are coarse bilaterally. Derm: Skin is intact, is healthy with good turgor, Skin is normal. 07:35 General: Appears in no apparent distress, Behavior is anxious, cooperative. Pain: js13 Denies pain. Neurological: Level of Consciousness is awake, alert, obeys commands. Cardiovascular: Chest pain is denied. Respiratory: Airway is patent Respiratory effort is even, unlabored, Respiratory pattern is regular, symmetrical, Breath sounds are coarse bilaterally. Derm: Skin is pink, warm & dry. 07:36 Adult Sepsis Screening: The patient does not have new or worsening altered mentation. js13 Patient's respiratory rate is less than 22. Systolic blood pressure is greater than 100. Patient has a qSOFA score of 0- Negative Sepsis Screen. Vital Signs: 06:31 BP 127 / 82; Pulse 85; Resp 20; Temp 99.3; Weight 58.97 kg; Height 5 ft. 8 in. (172.72 mlc cm); 06:44 Pulse Ox 100% on R/A; kb5 07:36 BP 125 / 76; Pulse 81; Resp 16; Temp 98.7(O); Pulse Ox 99% on R/A; js13 06:31 Body Mass Index 19.77 (58.97 kg, 172.72 cm) [facility] Vitals: 06:31 Log In Time: September 27, 2016 at 06:23. [facility] ED Course: 06:22 Patient visited by Laila Gee Reg. hs2 06:22 Patient moved to Waiting hs2 06:27 Triage Initiated [facility] 06:37 Patient visited by Barbie Crain RN. mlc 06:38 Risa Phan RN is Primary Nurse. mlc 06:38 Patient moved to 15 [facility] 06:56 Sahara Moreno DO [facility] jo4 06:56 Genny Katz MD is Attending Physician. jo4 07:03 Patient visited by Risa Phan RN. af2 07:03 The patient / caregiver is instructed regarding the plan of care and ED course. Patient af2 has correct armband on for positive identification. 07:06 Patient visited by Sahara Moreno DO. jo4 07:06 Patient visited by Sahara Moreno DO. jo4 07:18 Primary Nurse role handed off by Risa Phan RN kr3 07:36 No IV's were initiated during this patient's visit. No procedures done that require 13 assistance. 07:37 Patient visited by Nelida Grier RN. js13 07:39 Ning Hall is Referral Physician. jo4 07:47 [facility] Payment Agreement was scanned into [employer] and attached to record. mm15 Order Results: There are currently no results for this order. Outcome: 07:41 Patient left against medical advice. jo4 07:45 Discharge Assessment: Patient awake, alert and oriented x 3. No cognitive and/or js13 functional deficits noted. Patient verbalized understanding of disposition instructions. patient administered narcotics - no. The following High Risk Discharge criteria are identified: Yes, Left AMA. Dr Forman states that she is fine with the patient not having the AMA form filled out and signed.. The patient is leaving AMA: Notification of AMA status is made to the charge nurse, the social worker clinical, the ED attending physician, Other Dr Forman is fine with the patient not having the AMA form filled out and signed. Condition: unchanged. Discharge instructions given to patient, Instructed on discharge instructions, follow up and referral plans. Demonstrated understanding of instructions, Leaving AMA. No special radiology studies were completed. Property :Personal belongings accompany Pt. 07:47 Patient left the ED. js13 Signatures: Betsy Gregory,RN RN kr3 Arcadio Fontenot, MORALES MIXER DRIVER kb5 Nelida GrierRN RN js13 Jc Mendez mm15 Barbie Crain,Risa Steele RN, RN RN anibal2 Sahara Moreno DO DO jo4 Laila Gee, Reg Reg hs2 PAOLAD
--- NOTE | 2016-09-29 08:49 | EDDOCDS ---
Nurse's Notes [facility] Name: Genny Branham Age: 60 yrs Sex: Female : 1955 Arrival Date: 09/27/2016 Time: 06:20 Bed 15 Private MD: Diagnosis: Polyneuropathy, unspecified Presentation: 09/27 06:25 Presenting complaint: Patient states: pt states she has poor circulation, causing pain mlc in hands/feet. pt also reports that her temp has been fluctuating. c/o swollen mid-back. c/o chest tightness and labored breathing. Adult Sepsis Screening: The patient does not have new or worsening altered mentation. Patient's respiratory rate is less than 22. Systolic blood pressure is greater than 100. Patient has a qSOFA score of 0- Negative Sepsis Screen. Suicide/Homicide risk assessment- the patient denies having any suicidal and/or homicidal ideations and does not present with any other emotional, behavioral or mental health complaints. Status: Patient is not a director of clinical services or dependent. Transition of care: patient was not received from another setting of care. 06:25 Acuity: LYNN Level 3 mlc 06:25 Method Of Arrival: Walkin/Carried/Asstd mlc Triage Assessment: 06:31 General: Appears in no apparent distress, uncomfortable, Behavior is anxious, crying. mlc General: Reports fatigue for. Pain:. HIV screening NA for this visit Offered previously. The patient is triaged at the bedside. See Assessment in Nurses Notes section of ED record. Neurological: Level of Consciousness is awake, alert, obeys commands, Oriented to person, place, time. Neurological: Tingling in right hand, left hand, right foot, left foot, right arm and left arm. Respiratory: Airway is patent Respiratory effort is even, unlabored, Respiratory pattern is regular. Derm: Skin is normal, fingertips cyanotic. Historical: - Allergies: No known drug Allergies; - Home Meds: 1. aspirin 81 mg Oral tab 1 tab once daily (Last dose: 09/26/2016) 2. atorvastatin 40 mg oral tab 1 tab nightly 3. Calcium + Vitamin D Oral 600 mg twice a day 4. Cardizem 120 mg Oral tab 1 tab daily 5. paroxetine HCl 40 mg Oral tab 1 tab once daily 6. Cymbalta 30 mg Oral cpDR 1 cap once daily 7. Plavix 75 mg Oral tab 1 tab once daily 8. ropinirole 1 mg oral tab 1 tab twice a day 1 tab in AM, 2 tabs at night 9. Symbicort 160-4.5 mcg/actuation inhalation aepb 2 puffs 2 times per day 10. Vitamin D Oral 12019 unit weekly 11. primidone 50 mg Oral tab 2 tabs twice a day 12. Vitamin B-12 Unknown Oral daily - PMHx: COPD; essential tremors; PVD; restless leg syndrome; neuropathy; raynauds syndrome; - PSHx: Tonsillectomy; Removal of malignant melanoma right lower leg 2011; - Social history: Smoking status: Patient uses tobacco products, heavy tobacco smoker. No barriers to communication noted, The patient speaks fluent Hungarian. - Family history: Father has/had cancer, cardiac disorder. - : The pt / caregiver states he / she is on anticoagulants: Plavix. Home medication list is obtained from the patient, [employer] import data. - Exposure Risk Screening:: None identified. Screenin:37 Screening information is obtained from the patient. Fall risk: No risks identified. mlc Assistance ADL's: requires no assistance with activities of daily living. Abuse/DV Screen: The patient / caregiver reports he/she is: not in a situation that causes fear, pain or injury. Nutritional screening: No deficits noted. Advance Directives: Currently, there is no health care proxy. There is no Power of Gravity Manager. home support is adequate. Assessment: 07:01 General: Appears uncomfortable, Behavior is anxious, c/o pins and needles in bilateral af2 hands, states that right side of back is more swollen than left, reports she feels "tight" all over. . Neurological: Level of Consciousness is awake, alert, obeys commands, Oriented to person, place, time. Cardiovascular: Heart tones S1 S2 present. Respiratory: Airway is patent Respiratory effort is even, unlabored, Breath sounds are coarse bilaterally. Derm: Skin is intact, is healthy with good turgor, Skin is normal. 07:35 General: Appears in no apparent distress, Behavior is anxious, cooperative. Pain: js13 Denies pain. Neurological: Level of Consciousness is awake, alert, obeys commands. Cardiovascular: Chest pain is denied. Respiratory: Airway is patent Respiratory effort is even, unlabored, Respiratory pattern is regular, symmetrical, Breath sounds are coarse bilaterally. Derm: Skin is pink, warm & dry. 07:36 Adult Sepsis Screening: The patient does not have new or worsening altered mentation. js13 Patient's respiratory rate is less than 22. Systolic blood pressure is greater than 100. Patient has a qSOFA score of 0- Negative Sepsis Screen. Social Work Consult: 08:01 LWBS/AMA AMA: Patient is refusing further stabilizing treatment at [facility], although rb offered treatment regardless of method of payment or ability to pay. Patient is aware that this action is being undertaken against the advice of the medical staff at [facility]. Pt. has capacity to understand the potential consequences of this choice. pt did notify ED staff. Patient / Guardian did not sign a Refusal of Services form. Pt left before being seen by PSA. Vital Signs: 06:31 BP 127 / 82; Pulse 85; Resp 20; Temp 99.3; Weight 58.97 kg; Height 5 ft. 8 in. (172.72 mlc cm); 06:44 Pulse Ox 100% on R/A; kb5 07:36 BP 125 / 76; Pulse 81; Resp 16; Temp 98.7(O); Pulse Ox 99% on R/A; js13 06:31 Body Mass Index 19.77 (58.97 kg, 172.72 cm) [facility] Vitals: 06:31 Log In Time: September 27, 2016 at 06:23. [facility] ED Course: 06:22 Patient visited by Laila Gee Reg. hs2 06:22 Patient moved to Waiting hs2 06:27 Triage Initiated [facility] 06:37 Patient visited by Barbie Crain RN. mlc 06:38 Risa Phan RN is Primary Nurse. mlc 06:38 Patient moved to 15 [facility] 06:56 Sahara Moreno DO is PHCP. jo4 06:56 Genny Katz MD is Attending Physician. jo4 07:03 Patient visited by Risa Phan RN. af2 07:03 The patient / caregiver is instructed regarding the plan of care and ED course. Patient af2 has correct armband on for positive identification. 07:06 Patient visited by Sahara Moreno DO. jo4 07:06 Patient visited by Sahara Moreno DO. jo4 07:18 Primary Nurse role handed off by Risa Phan,RN kr3 07:36 No IV's were initiated during this patient's visit. No procedures done that require js13 assistance. 07:37 Patient visited by Nelida Grier,LAYA. js13 07:39 Ning Hall is Referral Physician. jo4 07:47 [facility] Payment Agreement was scanned into [employer] and attached to record. mm15 13:20 Patient visited by Raissa Russell, Reg. gb 13:20 T-Sheet-- Draft Copy was scanned into [employer] and attached to record. gb Order Results: There are currently no results for this order. Outcome: 07:41 Patient left against medical advice. jo4 07:45 Discharge Assessment: Patient awake, alert and oriented x 3. No cognitive and/or js13 functional deficits noted. Patient verbalized understanding of disposition instructions. patient administered narcotics - no. The following High Risk Discharge criteria are identified: Yes, Left AMA. Dr Forman states that she is fine with the patient not having the AMA form filled out and signed.. The patient is leaving AMA: Notification of AMA status is made to the charge nurse, the social work manager, the ED attending physician, Other Dr Forman is fine with the patient not having the AMA form filled out and signed. Condition: unchanged. Discharge instructions given to patient, Instructed on discharge instructions, follow up and referral plans. Demonstrated understanding of instructions, Leaving AMA. No special radiology studies were completed. Property :Personal belongings accompany Pt. 07:47 Patient left the ED. js13 Signatures: Doe, Judi, PSA PSA rb Raissa Russell, Reg Reg gb Betsy GregoryRN RN kr3 Arcadio Fontenot, CAMP DIRECTOR CAMP DIRECTOR kb5 Nelida Grier,RN RN js13 Jc Mendez mm15 Barbie Crain RN RN [facility] Risa Phan RN RN af2 Sahara Moreno DO DO jo4 Laila Gee, Reg Reg hs2 Chart Complete MTDD
--- NOTE | 2016-09-29 08:49 | EDDOCDS ---
Physician Documentation [facility] Name: Genny Branham Age: 60 yrs Sex: Female : 1955 Arrival Date: 09/27/2016 Time: 06:20 Bed 15 Private MD: Disposition: 09/27/16 07:41 Patient has left against medical advice. Impression: Polyneuropathy, unspecified. - Patients states they are going to Home/Self Care. - Condition is Fair. - Discharge Instructions: Neuropathic Pain. Medication Reconciliation, Local Pharmacy Hours form. Follow up: Ning Hall; When: Call to arrange an appointment; Reason: Recheck today's complaints, Continuance of care. - Problem is an ongoing problem. - Symptoms are unchanged. Historical: - Allergies: No known drug Allergies; - Home Meds: 1. aspirin 81 mg Oral tab 1 tab once daily (Last dose: 09/26/2016) 2. atorvastatin 40 mg oral tab 1 tab nightly 3. Calcium + Vitamin D Oral 600 mg twice a day 4. Cardizem 120 mg Oral tab 1 tab daily 5. paroxetine HCl 40 mg Oral tab 1 tab once daily 6. Cymbalta 30 mg Oral cpDR 1 cap once daily 7. Plavix 75 mg Oral tab 1 tab once daily 8. ropinirole 1 mg oral tab 1 tab twice a day 1 tab in AM, 2 tabs at night 9. Symbicort 160-4.5 mcg/actuation inhalation aepb 2 puffs 2 times per day 10. Vitamin D Oral 67926 unit weekly 11. primidone 50 mg Oral tab 2 tabs twice a day 12. Vitamin B-12 Unknown Oral daily - PMHx: COPD; essential tremors; PVD; restless leg syndrome; neuropathy; raynauds syndrome; - PSHx: Tonsillectomy; Removal of malignant melanoma right lower leg 2011; - Social history: Smoking status: Patient uses tobacco products, heavy tobacco smoker. No barriers to communication noted, The patient speaks fluent [place]. - Family history: Father has/had cancer, cardiac disorder. - : The pt / caregiver states he / she is on anticoagulants: Plavix. Home medication list is obtained from the patient, [employer] import data. - Exposure Risk Screening:: None identified. Vital Signs: 09/27 06:31 BP 127 / 82; Pulse 85; Resp 20; Temp 99.3; Weight 58.97 kg / 130.01 lbs; Height 5 ft. 8 [facility] [place]. (172.72 cm); 06:44 Pulse Ox 100% on R/A; kb5 07:36 BP 125 / 76; Pulse 81; Resp 16; Temp 98.7(O); Pulse Ox 99% on R/A; js13 06:31 Body Mass Index 19.77 (58.97 kg, 172.72 cm) [facility] MDM: 07:46 ED course: I discussed case with resident physician however patient left AMA prior to sd1 my examination. 07:47 Financial registration complete. mm15 07:47 [facility] Payment Agreement was scanned into [employer] and attached to record. mm15 13:20 T-Sheet-- Draft Copy was scanned into [employer] and attached to record. gb Signatures: Genny Katz MD MD sd1 Raissa Russell, Reg Reg gb Nelida Grier RN RN js13 Jc Mendez mm15 Barbie Crain,LAYA ASIF [facility] Sahara Moreno DO DO jo4 The chart was reviewed and I authenticate all verbal orders and agree with the evaluation and treatment provided.Attachments: 07:47 [facility] Payment Agreement mm15 13:20 T-Sheet-- Draft Copy gb Chart Complete MTDD
--- NOTE | 2016-09-29 08:49 | EDDOCDS ---
Physician Documentation [facility] Name: Genny Branham Age: 60 yrs Sex: Female : 1955 Arrival Date: 09/27/2016 Time: 06:20 Bed 15 Private MD: Disposition: 09/27/16 07:41 Patient has left against medical advice. Impression: Polyneuropathy, unspecified. - Patients states they are going to Home/Self Care. - Condition is Fair. - Discharge Instructions: Neuropathic Pain. Medication Reconciliation, Local Pharmacy Hours form. Follow up: Ning Hall; When: Call to arrange an appointment; Reason: Recheck today's complaints, Continuance of care. - Problem is an ongoing problem. - Symptoms are unchanged. Historical: - Allergies: No known drug Allergies; - Home Meds: 1. aspirin 81 mg Oral tab 1 tab once daily (Last dose: 09/26/2016) 2. atorvastatin 40 mg oral tab 1 tab nightly 3. Calcium + Vitamin D Oral 600 mg twice a day 4. Cardizem 120 mg Oral tab 1 tab daily 5. paroxetine HCl 40 mg Oral tab 1 tab once daily 6. Cymbalta 30 mg Oral cpDR 1 cap once daily 7. Plavix 75 mg Oral tab 1 tab once daily 8. ropinirole 1 mg oral tab 1 tab twice a day 1 tab in AM, 2 tabs at night 9. Symbicort 160-4.5 mcg/actuation inhalation aepb 2 puffs 2 times per day 10. Vitamin D Oral 92884 unit weekly 11. primidone 50 mg Oral tab 2 tabs twice a day 12. Vitamin B-12 Unknown Oral daily - PMHx: COPD; essential tremors; PVD; restless leg syndrome; neuropathy; raynauds syndrome; - PSHx: Tonsillectomy; Removal of malignant melanoma right lower leg 2011; - Social history: Smoking status: Patient uses tobacco products, heavy tobacco smoker. No barriers to communication noted, The patient speaks fluent Setswana. - Family history: Father has/had cancer, cardiac disorder. - : The pt / caregiver states he / she is on anticoagulants: Plavix. Home medication list is obtained from the patient, [employer] import data. - Exposure Risk Screening:: None identified. Vital Signs: 09/27 06:31 BP 127 / 82; Pulse 85; Resp 20; Temp 99.3; Weight 58.97 kg / 130.01 lbs; Height 5 ft. 8 [facility] in. (172.72 cm); 06:44 Pulse Ox 100% on R/A; kb5 07:36 BP 125 / 76; Pulse 81; Resp 16; Temp 98.7(O); Pulse Ox 99% on R/A; js13 06:31 Body Mass Index 19.77 (58.97 kg, 172.72 cm) [facility] MDM: 07:46 ED course: I discussed case with resident physician however patient left AMA prior to sd1 my examination. 07:47 Financial registration complete. mm15 07:47 [facility] Payment Agreement was scanned into [employer] and attached to record. mm15 13:20 T-Sheet-- Draft Copy was scanned into [employer] and attached to record. gb Signatures: Genny Katz MD MD sd1 Raissa Russell, Reg Reg gb Nelida Grier RN RN js13 Jc Mendez mm15 Barbie Crain,LAYA ASIF [facility] Sahara Moreno DO DO jo4 The chart was reviewed and I authenticate all verbal orders and agree with the evaluation and treatment provided.Attachments: 07:47 [facility] Payment Agreement mm15 13:20 T-Sheet-- Draft Copy gb Chart Complete MTDD
== END 2016-09-27 07:47 | disposition left against medical advice (07) ==
LOC: M ED 06:20
DX: G62.9 Polyneuropathy, unspecified (principal); J44.9 Chronic obstructive pulmonary disease, unspecified; G25.81 Restless legs syndrome; G25.0 Essential tremor; I73.9 Peripheral vascular disease, unspecified; I73.00 Raynaud's syndrome without gangrene; Z85.820 Personal history of malignant melanoma of skin; Z72.0 Tobacco use; Z79.02 Long term (current) use of antithrombotics/antiplatelets; Z79.82 Long term (current) use of aspirin; Z79.899 Other long term (current) drug therapy

== ENCOUNTER → 2016-09-30 | Outpatient (CLI) | payer OTHER ==
[~2016-09-30] MED LIST: GASTROGRAFIN SOLUTION 30ML (Q9963) As Ordered ONE; ISOVUE-370 76% 100ML VIAL (Q9967) As Ordered ONE
--- NOTE | 2016-10-01 05:03 | REP ---
Clinical: History of malignant melanoma. Technique: Axial contrast enhanced images from the thoracic inlet to the upper abdomen using 100 ml Isovue 370 intravenous contrast material with coronal and sagittal re-formations. Comparison: 04/08/2016. Findings: Mild to moderate emphysematous changes are again appreciated and essentially unchanged. Small chronic calcified granuloma in the periphery of the right lower lobe (image 81) remains stable. No acute pulmonary parenchymal consolidation, nodule or mass lesion. No pleural effusion/reaction or pneumothorax. Tracheobronchial tree is patent. No axillary, hilar, or mediastinal adenopathy is appreciated. Mediastinum demonstrates relatively normal heart/pericardium and thoracic aorta. Minimal atherosclerotic changes noted. No pericardial effusion. No aortic aneurysm or dissection. Musculoskeletal structures are intact. Limited evaluation of the upper abdomen is grossly unremarkable. Impression: Mild to moderate chronic emphysematous changes. No acute mediastinal or pleuroparenchymal process. Signed by Parth Hinojosa MD 10/01/2016 04:55 A
--- NOTE | 2016-10-01 05:12 | REP ---
Clinical: Weight loss with history of malignant melanoma. Technique: Axial contrast enhanced images from the lung bases to the pubic symphysis using oral and 100 ml Isovue 370 intravenous contrast material with precontrast and delayed images of the abdomen as well as coronal and sagittal re-formations. Findings: Lung bases demonstrate moderate emphysematous changes and 2 mm calcified granuloma in the periphery of the right lower lobe. Visualized portions of the heart and pericardium appear normal. Liver demonstrates two hyperenhancing foci in the left lobe likely representing hemangiomas and measuring up to approximately 10 mm maximal diameter. Spleen, pancreas, gallbladder, bilateral adrenal glands and kidneys are normal. The enteric system is grossly unremarkable and without evidence for obstruction or obvious acute inflammatory process. Pelvis demonstrates normal bladder and age-appropriate uterus/adnexa. No pelvic fluid. No obvious intraperitoneal or retroperitoneal adenopathy. Atherosclerotic changes to the aorta and branch vessels noted without aneurysm or dissection. Musculoskeletal structures demonstrate moderate degenerative changes involving the thoracolumbar spine and pelvis/hips without focal osseous abnormality identified. Impression: 1. Two hyperenhancing liver lesions measuring up to 10 mm maximal diameter likely represent small hemangiomas identified in the left lobe. Initial followup at 6 months by ultrasound may be sufficient. 2. No acute intra-abdominal or pelvic pathology appreciated. 3. Moderate emphysematous changes at the lung bases. 4. Moderate degenerative changes involving the thoracolumbar spine and pelvis/hips. Signed by Parth Hinojosa MD 10/01/2016 05:03 A
== END ==
LOC: M RAD 15:16
PROVIDERS: ATTEND Nurse Practitioner Adult Health
DX: R63.4 Abnormal weight loss (principal); Z85.820 Personal history of malignant melanoma of skin

== ENCOUNTER → 2016-10-03 | Outpatient (REF) | payer OTHER | LOC: M SFHCPLAZ 12:11 | PROVIDERS: ATTEND Nurse Practitioner Adult Health | DX: R82.90 Unspecified abnormal findings in urine (principal) ==

== ENCOUNTER → 2016-10-04 | Outpatient (REF) | payer OTHER ==
[2016-10-07 11:29] LABS: ALBUMIN 4.54 GM/DL (3.29-5.55); ALBUMIN % 64.9 % (55.8-66.1); GAMMA GLOBULIN % 10.6 % (11.1-18.8)
== END ==
LOC: M LABDRAWP 12:51
PROVIDERS: ATTEND Nurse Practitioner Adult Health
DX: R63.4 Abnormal weight loss (principal)

== ENCOUNTER → 2016-10-23 | Outpatient (REF) | payer OTHER ==
[~2016-10-23] MED LIST changes: +ASPI81TA85 PO; +ATOR40TA PO; +AUGM875T27 PO; +CALC600T57 PO; +CARD120T4 PO; +CYMB1CAP5 PO; +DRIS50002 PO; -GASTROGRAFIN SOLUTION 30ML (Q9963) As Ordered ONE; -ISOVUE-370 76% 100ML VIAL (Q9967) As Ordered ONE; +MYSO50TA5 PO; +PLAV75TA38 PO; +REGL10TA6 PO; +REQU1TAB16 PO; +REQU2TAB3 PO; +SYMB16INH INH; +XANA0.25 PO
== END ==
LOC: M SFHCWAGY 14:51
PROVIDERS: ATTEND Nurse Practitioner Family
DX: Z12.4 Encounter for screening for malignant neoplasm of cervix (principal)

== ENCOUNTER → 2016-10-23 | Outpatient (CLI) | payer OTHER ==
--- NOTE | 2016-10-23 10:48 | REP ---
RIGHT BREAST ULTRASOUND: 10/23/2016. COMPARISON: Diagnostic mammogram, 10/23/2016. CLINICAL HISTORY: Ecchymosis right breast, lower half. The patient had left carotid endarterectomy 2 weeks ago. FINDINGS: Sonographic evaluation of the right breast in the periareolar aspect and scanning of the breast from 3 to 9-o'clock positions shows echogenic dense breast tissue and some mildly prominent ducts near the nipple which is a normal finding. There is some subcutaneous edema and swelling in the skin and soft tissues around the nipple and inferiorly at 6-o'clock position from a visible ecchymosis noted by the senior hr manager and motorcycle maker in accordance with the patient's presentation. There is no fluid collection or drainable hematoma. No other finding. IMPRESSION: 1. Some subcutaneous edema and thickening of subcutaneous tissues in the periareolar region in the bruise inferior to the nipple from 6 to 4-o'clock position, inferior right breast. No drainable fluid collection or mass. Please see mammogram report this date for final assessment and recommendation. Signed by Leo Bhardwaj MD 10/23/2016 08:16 P
--- NOTE | 2016-10-23 10:54 | REP ---
BILATERAL DIAGNOSTIC MAMMOGRAM: 10/23/2016 COMPARISON: 06/05/2015, 06/17/2013 mammogram, right breast ultrasound today. CLINICAL HISTORY: Patient is 2 weeks status post left carotid endarterectomy with periareolar and lower half right breast ecchymosis. No palpable mass. The patient denies chest trauma. FINDINGS: Standard two-view mammography is performed and shows scattered heterogeneously dense fibroglandular elements in a pattern and distribution similar to multiple prior studies. Axillary tail lymph nodes are noted bilaterally as benign findings. The lower half of periareolar breast skin on the right is somewhat thickened today compared to the previous study, consistent with the clinical history of ecchymosis in the breast in this location. There is no mass, clustered microcalcification, architectural distortion, or tissue asymmetry. No other findings or other secondary signs of malignancy. RIGHT BREAST ULTRASOUND: Some subcutaneous edema and swelling periareolar right breast and lower half of the right breast from 4 to 6-o'clock position corresponding to the region of her ecchymosis on clinical inspection by laundry agent and power engineer today. No mass or drainable fluid collection. No other finding. IMPRESSION: 1. No mammographic evidence of malignancy. There are some changes on the mammogram and ultrasound associated with the known ecchymosis in the periareolar region and lower half right breast 6-o'clock to 4-o'clock position. This may be related to her recent procedure and that she also has visible resorbing ecchymosis in the anterior chest wall. There is no suspicious breast abnormality or mass. She denies any direct trauma. BIRADS ACR category 2, benign. Benign finding. No evidence of malignancy. See note above. Annual screening mammogram recommended. This mammogram was interpreted with the aid of an FDA-approved computer-aided detection system. A. Negative x-ray reports should not delay biopsy if a dominant or clinically suspicious mass is present. B. Four to eight percent of cancers are not identified by x-ray. C. Adenosis and dense breasts may obscure an underlying neoplasm. The patient states she/he had a clinical breast exam in 10/2016. The patient letter being requested is M1, dense. Signed by Leo Bhardwaj MD 10/23/2016 08:17 P
== END ==
LOC: M RAD 08:25
PROVIDERS: ATTEND Nurse Practitioner Adult Health
DX: S20.01XA Contusion of right breast, initial encounter (principal); X58.XXXA Exposure to other specified factors, initial encounter; Y92.89 Other specified places as the place of occurrence of the external cause; Y93.89 Activity, other specified; Y99.8 Other external cause status
CPT/HCPCS: 76642; G0204

== ENCOUNTER 2016-10-29 07:46 | Emergency (ER) | payer OTHER ==
[~2016-10-29] VITALS: Ht 172.7 cm; Wt 59.0 kg
--- NOTE | 2016-10-29 09:09 | REP ---
ABDOMINAL SERIES: Supine and erect views of the abdomen demonstrate no evidence of free intraperitoneal air, ileus or obstruction. Air is scattered throughout the GI tract in a nonspecific pattern. No abnormal calcifications are seen. There are diffuse degenerative changes of the spine. There are degenerative changes of the hips. An accompanying PA view of the chest demonstrates no acute infiltrate. Cardiomediastinal silhouette appears normal. IMPRESSION: No evidence of free air or obstruction. Signed by Mickey Thomas MD 10/29/2016 04:50 P
[2016-10-29 09:16] LABS: BASO % 0.4 % (0.0-1.0); EOS # 0.1 K/mm3 (0.0-0.50); EOS % 1.2 % (0.0-3.0); LARGE UNSTAINED CELL # 0.1 K/mm3 (0.0-0.4); LYMPH # 1.6 K/mm3 (1.5-4.5); LYMPH % 25.2 % (24.0-44.0); MEAN CORPUSCULAR HEMOGLOBIN 35.1 pg (27.0-33.0); MEAN CORPUSCULAR VOLUME 103.2 fl (80.0-96.0); MONO # 0.3 K/mm3 (0.0-0.8); MONO % 5.2 % (0.0-5.0); NEUTROPHILS # 4.1 K/mm3 (1.8-7.7); NEUTROPHILS % 65.9 % (36.0-66.0); PLATELET COUNT, AUTOMATED 243 k/mm3 (150-450); RED CELL DISTRIBUTION WIDTH 12.7 % (11.5-14.5); WHITE BLOOD COUNT 6.2 K/mm3 (4.0-10.0)
[2016-10-29] MEDS ORDERED: ASPI81TA85 PO ×2 (09:19→11:54)
[2016-10-29] MEDS ORDERED: MYSO50TA5 PO (09:19)
[2016-10-29 09:33] LABS: ALBUMIN 4.2 GM/DL (3.2-5.2); ALKALINE PHOSPHATASE 76 U/L (45-117); ALT/SGPT 32 U/L (12-78); ANION GAP 8 MEQ/L (8-16); AST/SGOT 23 U/L (15-37); BILIRUBIN,DIRECT 0.1 MG/DL (0.0-0.2); BILIRUBIN,TOTAL 0.6 MG/DL (0.2-1.0); BLOOD UREA NITROGEN 8 MG/DL (7-18); CALCIUM LEVEL 8.8 MG/DL (8.5-10.1); CARBON DIOXIDE LEVEL 31 MEQ/L (21-32); CHLORIDE LEVEL 100 MEQ/L (98-107); CREATININE FOR GFR 0.67 MG/DL (0.55-1.02); GLOMERULAR FILTRATION RATE > 60.0 (>51); GLUCOSE, FASTING 103 MG/DL (70-105); POTASSIUM SERUM 4.1 MEQ/L (3.5-5.1); SODIUM LEVEL 139 MEQ/L (136-145); TOTAL PROTEIN 7.2 GM/DL (6.4-8.2)
[2016-10-29] MEDS ORDERED: REQU2TAB3 PO (09:45)
[2016-10-29] MEDS ORDERED: REQU1TAB16 PO (09:45)
[2016-10-29] MEDS ORDERED: CYMB1CAP5 PO (09:49)
[2016-10-29] MEDS ORDERED: DRIS50002 PO (09:49)
[2016-10-29] MEDS ORDERED: CARD120T4 PO (09:49)
[2016-10-29] MEDS ORDERED: XANA0.25 PO (09:49)
[2016-10-29] MEDS ORDERED: CALC600T57 PO (09:49)
[2016-10-29] MEDS ORDERED: ATOR40TA PO (09:49)
[2016-10-29] MEDS ORDERED: SYMB16INH INH (09:49)
[2016-10-29] MEDS ORDERED: PLAV75TA38 PO (09:49)
--- NOTE | 2016-10-29 09:49 | REP ---
ULTRASOUND LEFT NECK SOFT TISSUES: Real-time sonographic evaluation of the left neck soft tissues performed. There is an area of redness and swelling status post endarterectomy three weeks ago. Subcutaneously, there is an oval complex fluid collection measuring 21 x 4 x 7 mm. Differential diagnosis would include abscess, hematoma or complex seroma. Signed by Mickey Thomas MD 10/29/2016 04:51 P
[2016-10-29] MEDS ORDERED: AUGM875T27 PO ×2 (11:27→11:54)
[2016-10-29] MEDS ORDERED: REGL10TA6 PO ×2 (11:30→11:54)
[2016-10-29 11:54] VITALS: BP 106/68
== END 2016-10-29 12:13 | disposition home or self-care (01) ==
LOC: M ED 09:42
DX: L76.32 Postprocedural hematoma of skin and subcutaneous tissue following other procedure (principal); Z79.82 Long term (current) use of aspirin; Z79.899 Other long term (current) drug therapy

== ENCOUNTER → 2018-01-14 | Outpatient (CLI) | payer MEDICARE, OTHER | LOC: M RAD 08:04 | DX: K76.9 Liver disease, unspecified (principal) | CPT/HCPCS: 76705 ==

== ENCOUNTER 2018-03-26 11:24 | Emergency (ER) | payer MEDICARE, OTHER ==
[2018-03-26] MEDS: PENICILLIN V POTASSIUM 500 MG TAB PO (14:00)
== END 2018-03-26 15:20 | disposition home or self-care (01) ==
LOC: M ED 11:24
DX: K04.7 Periapical abscess without sinus (principal); E78.00 Pure hypercholesterolemia, unspecified; G25.81 Restless legs syndrome; K76.89 Other specified diseases of liver; F33.9 Major depressive disorder, recurrent, unspecified; I73.9 Peripheral vascular disease, unspecified; Z79.899 Other long term (current) drug therapy; Z79.82 Long term (current) use of aspirin; Z79.02 Long term (current) use of antithrombotics/antiplatelets
CPT/HCPCS: 99282

== ENCOUNTER → 2018-04-21 | Outpatient (CLI) | payer MEDICARE, OTHER | LOC: M WUC 16:38 | DX: M25.571 Pain in right ankle and joints of right foot (principal) | CPT/HCPCS: 73610 ==

== ENCOUNTER 2018-06-27 04:02 | Emergency (ER) | payer MEDICARE, OTHER, MEDICAID ==
[2018-06-27] MEDS: ACETAMINOPHEN 325 MG TAB PO (06:25)
[2018-06-27] MEDS: AUGMENTIN 875 MG TAB PO (06:25)
== END 2018-06-27 06:37 | disposition home or self-care (01) ==
LOC: M ED 04:02
DX: K02.9 Dental caries, unspecified (principal); J06.9 Acute upper respiratory infection, unspecified; I10 Essential (primary) hypertension; J44.9 Chronic obstructive pulmonary disease, unspecified; E78.70 Disorder of bile acid and cholesterol metabolism, unspecified; G25.81 Restless legs syndrome; F17.210 Nicotine dependence, cigarettes, uncomplicated
CPT/HCPCS: 99283

== ENCOUNTER → 2018-07-31 | Outpatient (CLI) | payer MEDICARE, OTHER, MEDICAID | LOC: M RAD 07:05 | DX: Z95.5 Presence of coronary angioplasty implant and graft (principal); I65.23 Occlusion and stenosis of bilateral carotid arteries; R22.43 Localized swelling, mass and lump, lower limb, bilateral | CPT/HCPCS: 93880 ==

== ENCOUNTER 2018-08-23 08:09 | Emergency (ER) | payer MEDICARE, OTHER, MEDICAID ==
[~2018-08-23] VITALS: Ht 172.7 cm; Wt 56.8 kg
[2018-08-23 08:09] VITALS: BP 130/78
[~2018-08-23 08:09] MED LIST changes: -ATOR40TA PO; +ATOR40TA75 PO; -AUGM875T27 PO; +AUGM875T28 PO; -DRIS50002 PO; +DRIS50003 PO; +HYDR5SYP PO; +PENI500T PO; +PLAV1TAB2 PO; -PLAV75TA38 PO
[2018-08-23] MEDS ORDERED: IBUPROFEN 600 MG TAB PO ONE (09:15)
[2018-08-23] MEDS ORDERED: AUGMENTIN 875 MG TAB PO ONE (09:15)
[2018-08-23] MEDS ORDERED: PERI0.126 PO (09:20)
[2018-08-23] MEDS ORDERED: AUGM875T28 PO (09:20)
== END 2018-08-23 09:30 | disposition home or self-care (01) ==
LOC: M ED 08:09
DX: K04.7 Periapical abscess without sinus (principal); G25.0 Essential tremor; E78.9 Disorder of lipoprotein metabolism, unspecified; I73.9 Peripheral vascular disease, unspecified; Z79.899 Other long term (current) drug therapy; Z79.82 Long term (current) use of aspirin; F17.210 Nicotine dependence, cigarettes, uncomplicated

== ENCOUNTER → 2019-03-31 | Outpatient (CLI) | payer MEDICARE, OTHER, MEDICAID ==
[~2019-03-31] MED LIST changes: +PERI0.126 PO
[2019-03-31 06:54] LABS: HEMATOCRIT 54.4 % (36.0-47.0); HEMOGLOBIN 18.4 g/dl (12.0-15.5); MEAN CORPUSCULAR HEMOGLOBIN 34.5 pg (27.0-33.0); MEAN CORPUSCULAR HGB CONC 33.8 g/dl (32.0-36.5); MEAN CORPUSCULAR VOLUME 101.9 fl (80.0-96.0); PLATELET COUNT, AUTOMATED 193 10^3/uL (150-450); RED BLOOD COUNT 5.34 10^6/uL (4.00-5.40); WHITE BLOOD COUNT 8.7 10^3/uL (4.0-10.0)
[2019-03-31 07:30] LABS: ALT/SGPT 24 U/L (12-78); BILIRUBIN,TOTAL 0.4 MG/DL (0.2-1.0); BLOOD UREA NITROGEN 12 MG/DL (7-18); CARBON DIOXIDE LEVEL 31 MEQ/L (21-32); CHLORIDE LEVEL 110 MEQ/L (98-107); CHOLESTEROL LEVEL 152 MG/DL (<200); CHOLESTEROL RISK RATIO 2.375 (<5); CREATININE FOR GFR 0.73 MG/DL (0.55-1.30); GLOMERULAR FILTRATION RATE > 60.0 (>45); GLUCOSE, FASTING 99 MG/DL (70-100); HDL CHOLESTEROL 64 MG/DL (>40); LDL CHOLESTEROL 72 MG/DL (<100); NON-HDL-C 88 MG/DL; POTASSIUM SERUM 4.4 MEQ/L (3.5-5.1); SODIUM LEVEL 145 MEQ/L (136-145); TOTAL PROTEIN 6.6 GM/DL (6.4-8.2); TRIGLYCERIDES LEVEL 79 MG/DL (<150)
[2019-03-31 11:58] LABS: TOTAL 25(OH) VITAMIN D 92.3 NG/ML (30.0-100.0)
== END ==
LOC: M LAB 06:10
PROVIDERS: ATTEND Nurse Practitioner Adult Health
DX: E55.9 Vitamin D deficiency, unspecified (principal); I73.9 Peripheral vascular disease, unspecified; Z79.899 Other long term (current) drug therapy

== ENCOUNTER → 2019-04-14 | Outpatient (CLI) | payer MEDICARE, OTHER ==
--- NOTE | 2019-04-14 12:27 | REP ---
REASON: History of bilateral carotid arterial disease. Prior exam of 07/31/2018 shows bilateral carotid stents without evidence of significant stenosis. Today's examination again shows bilateral carotid stents. Echogenic material is again seen along the carotid arterial ramos some of which casts an acoustic shadow consistent with calcific deposition. RIGHT LEFT CCA systolic 41.9 cm/s (distal) 49.8 cm/s (distal) CCA diastolic 13.7 cm/s 15.0 cm/s ICA systolic 69.5 cm/s 68.8 cm/s ICA diastolic 26.2 cm/s 25.6 cm/s ICA/CCA ratio 1.66 1.38 According to the NASCET consensus criteria, there is less than 50% stenosis of the internal carotid artery bilaterally. This is secondary to both soft and calcified plaque formation. Electronically Signed by Maldonado Nuno DO 04/14/2019 12:30 P
== END ==
LOC: M RAD 08:27
PROVIDERS: ATTEND Surgery Vascular Surgery
DX: I65.23 Occlusion and stenosis of bilateral carotid arteries (principal)

== ENCOUNTER → 2019-06-21 | Outpatient (REF) | payer MEDICARE, OTHER, MEDICAID | LOC: M SFHCPLAZ 14:02 | PROVIDERS: ATTEND Nurse Practitioner Adult Health | DX: R35.0 Frequency of micturition (principal); Z23 Encounter for immunization | CPT/HCPCS: 81002; 87086; 90682; G0008; G0463 ==

== ENCOUNTER → 2019-06-29 | Outpatient (CLI) | payer MEDICARE, OTHER ==
--- NOTE | 2019-06-29 09:50 | REP ---
Clinical: Pelvic pain and swelling . Technique: Transabdominal pelvic ultrasound followed by transvaginal examination for better evaluation of the endometrium and adnexa with color Doppler evaluation of the ovaries. Findings: Bladder is unremarkable and measures 7.5 x 4.9 x 2.1 cm . Heterogeneous retroverted uterus measures 5.5 x 3.2 x 4.5 cm . The endometrial complex measures 4.0 mm thickness. No discrete uterine or endometrial abnormalities are appreciated. Bilateral ovaries are normal in appearance and demonstrate color flow without evidence for torsion. Right ovary measures 2.1 x 1.0 x 2.3 cm ; Left ovary measures 1.6 x 1.4 x 1.0 cm. No pelvic fluid or adnexal mass lesion . Further evaluation overly the area of swelling demonstrates skin thickening and subcutaneous edema without obvious abnormality. Impression: 1. relatively normal age appropriate examination. 2. Area of swelling demonstrates subcutaneous edema and skin thickening. Electronically Signed by Parth Hinojosa MD 06/29/2019 09:42 A
[2019-06-29 10:36] LABS: HEMATOCRIT 49.1 % (36.0-47.0); HEMOGLOBIN 16.4 g/dl (12.0-15.5); MEAN CORPUSCULAR HEMOGLOBIN 35.1 pg (27.0-33.0); MEAN CORPUSCULAR HGB CONC 33.4 g/dl (32.0-36.5); MEAN CORPUSCULAR VOLUME 105.1 fl (80.0-96.0); PLATELET COUNT, AUTOMATED 228 10^3/uL (150-450); RED BLOOD COUNT 4.67 10^6/uL (4.00-5.40); WHITE BLOOD COUNT 7.6 10^3/uL (4.0-10.0)
[2019-06-29 10:47] LABS: INR 1.02; PROTHROMBIN TIME 13.1 SECONDS (11.8-14.0)
[2019-06-29 11:04] LABS: ALBUMIN 3.3 GM/DL (3.2-5.2); ALT/SGPT 31 U/L (12-78); BILIRUBIN,TOTAL 0.4 MG/DL (0.2-1.0); BLOOD UREA NITROGEN 10 MG/DL (7-18); CALCIUM LEVEL 8.5 MG/DL (8.8-10.2); CARBON DIOXIDE LEVEL 33 MEQ/L (21-32); CHLORIDE LEVEL 103 MEQ/L (98-107); GLOMERULAR FILTRATION RATE > 60.0 (>45); GLUCOSE, FASTING 69 MG/DL (70-100); POTASSIUM SERUM 4.8 MEQ/L (3.5-5.1); SODIUM LEVEL 141 MEQ/L (136-145); TOTAL PROTEIN 5.9 GM/DL (6.4-8.2)
== END ==
LOC: M RAD 08:59
PROVIDERS: ATTEND Nurse Practitioner Adult Health
DX: D75.1 Secondary polycythemia (principal); R19.00 Intra-abdominal and pelvic swelling, mass and lump, unspecified site; Z79.01 Long term (current) use of anticoagulants

== ENCOUNTER → 2019-07-26 | Outpatient (CLI) | payer MEDICARE, OTHER ==
[2019-07-26 17:12] LABS: ALBUMIN 3.3 GM/DL (3.2-5.2); ALT/SGPT 29 U/L (12-78); BILIRUBIN,TOTAL 0.4 MG/DL (0.2-1.0); BLOOD UREA NITROGEN 15 MG/DL (7-18); CALCIUM LEVEL 8.8 MG/DL (8.8-10.2); CARBON DIOXIDE LEVEL 34 MEQ/L (21-32); CHLORIDE LEVEL 101 MEQ/L (98-107); CREATININE FOR GFR 0.91 MG/DL (0.55-1.30); GLOMERULAR FILTRATION RATE > 60.0 (>45); GLUCOSE, FASTING 79 MG/DL (70-100); POTASSIUM SERUM 5.2 MEQ/L (3.5-5.1); SODIUM LEVEL 140 MEQ/L (136-145); TOTAL PROTEIN 5.9 GM/DL (6.4-8.2)
[2019-07-26 18:29] LABS: HEMATOCRIT 52.4 % (36.0-47.0); HEMOGLOBIN 17.3 g/dl (12.0-15.5); MEAN CORPUSCULAR HEMOGLOBIN 34.5 pg (27.0-33.0); MEAN CORPUSCULAR VOLUME 104.4 fl (80.0-96.0); PLATELET COUNT, AUTOMATED 209 10^3/uL (150-450); RED BLOOD COUNT 5.02 10^6/uL (4.00-5.40); WHITE BLOOD COUNT 7.6 10^3/uL (4.0-10.0)
[2019-07-27 16:10] LABS: VITAMIN B12 LEVEL 292 PG/ML (247-911)
== END ==
LOC: M PLALAB 12:18
PROVIDERS: ATTEND Nurse Practitioner Adult Health
DX: R60.9 Edema, unspecified (principal)
CPT/HCPCS: 36415; 80053; 82607; 85027; G0463

== ENCOUNTER → 2019-07-26 | Outpatient (REF) | payer MEDICARE, OTHER | LOC: CANPREREF → M SFHCPLAZ 12:08 | PROVIDERS: ATTEND Nurse Practitioner Adult Health | DX: R60.9 Edema, unspecified (principal) ==

== ENCOUNTER → 2019-09-07 | Outpatient (CLI) | payer MEDICARE, OTHER ==
--- NOTE | 2019-09-07 12:37 | REPPI ---
CHEST, TWO VIEWS: There is no evidence of acute infiltrate. No pleural effusion is seen. The heart is normal in size. The mediastinal silhouette is unremarkable. The visualized osseous structures are intact. IMPRESSION: No acute pulmonary disease. Electronically Signed by Mickey Thomas MD 09/07/2019 12:52 P
== END ==
LOC: M PLAIMG 12:09
PROVIDERS: ATTEND Nurse Practitioner Adult Health
DX: R05 Cough (principal)
CPT/HCPCS: 71046; G0463

== ENCOUNTER → 2019-09-15 | Outpatient (CLI) | payer MEDICARE, OTHER ==
[2019-09-15 14:26] LABS: ALT/SGPT 39 U/L (12-78); AMYLASE 62 U/L (25-115); BILIRUBIN,TOTAL 0.6 MG/DL (0.2-1.0); BLOOD UREA NITROGEN 17 MG/DL (7-18); CALCIUM LEVEL 8.6 MG/DL (8.8-10.2); CARBON DIOXIDE LEVEL 33 MEQ/L (21-32); CHLORIDE LEVEL 101 MEQ/L (98-107); CREATININE FOR GFR 0.73 MG/DL (0.55-1.30); GLOMERULAR FILTRATION RATE > 60.0 (>45); GLUCOSE, FASTING 70 MG/DL (70-100); LIPASE 240 U/L (73-393); POTASSIUM SERUM 5.2 MEQ/L (3.5-5.1); SODIUM LEVEL 141 MEQ/L (136-145); TOTAL PROTEIN 5.8 GM/DL (6.4-8.2)
[2019-09-16 12:10] LABS: ALBUMIN % 60.4 % (55.8-66.1); ALPHA-1-GLOBULIN % 6.1 % (2.9-4.9); ALPHA-2-GLOBULINS % 12.5 % (7.1-11.8)
[2019-09-16 12:11] LABS: ALPHA-1-GLOBULINS 0.35 GM/DL (0.17-0.41); ALPHA-2-GLOBULINS 0.73 GM/DL (0.42-0.99); BETA-1-GLOBULINS 0.44 GM/DL (0.28-0.60); BETA-1-GLOBULINS % 7.5 % (4.7-7.2); BETA-2-GLOBULINS 0.23 GM/DL (0.19-0.55); BETA-2-GLOBULINS % 3.9 % (3.2-6.5); GAMMA GLOBULIN % 9.6 % (11.1-18.8); GAMMA GLOBULINS 0.56 GM/DL (0.65-1.58)
== END ==
LOC: M PLALAB 12:28
PROVIDERS: ATTEND Nurse Practitioner Adult Health
DX: R60.9 Edema, unspecified (principal); R63.4 Abnormal weight loss
CPT/HCPCS: 36415; 80053; 82150; 83690; 84165; G0463

== ENCOUNTER → 2019-09-23 | Outpatient (CLI) | payer MEDICARE, OTHER ==
[~2019-09-23] MED LIST changes: +GASTROGRAFIN SOLUTION 30ML (Q9963) As Ordered ONE; +ISOVUE-370 76% 100ML VIAL (Q9967) As Ordered ONE
--- NOTE | 2019-09-23 11:06 | REP ---
CT of the abdomen and pelvis for fluid retention: Initial scanning is performed without IV contrast to the iliac crests. This is followed by scanning to the symphysis pubis with IV contrast. There is no bowel contrast. Comparison is the similar study of 09/30/2016. There is no ascites. The visualized lung anton demonstrate multiple bulla, this is unchanged. On the prior study there were three small focal enhancing lesions in the left lobe of the liver approximate 10 mm in diameter each, compatible with small hemangiomas. On the current study. Two of these three previous lesions are unchanged. The third has significantly decreased in size today measuring approximately 3 mm compatible with an involuting hemangioma. The hepatic parenchyma is otherwise unremarkable. The gallbladder, pancreas and spleen are normal size, homogeneous and unremarkable. The adrenals are. The kidneys are unremarkable. Abdominal aorta contains calcified atheroma but is otherwise unremarkable. There is no periaortic adenopathy or mass. There is no bowel distension. There is minimal subcutaneous and intraperitoneal body fat. This is unchanged. Pelvis: The uterus, adnexa and bladder are unremarkable. The pelvic bowel loops are unremarkable. There is degenerative disc disease throughout the lumbar spine, unchanged. Impression: There is no ascites. There are three enhancing lesions in the left lobe of the liver compatible with hemangiomas as described. One of these appears to have significantly decreased in size. There is minimal subcutaneous and intraperitoneal body fat. This is unchanged. There are bullous changes in the visualized lung anton. Electronically Signed by Mickey Rosas MD 09/23/2019 10:58 A
== END ==
LOC: M RAD 08:27
PROVIDERS: ATTEND Nurse Practitioner Adult Health
DX: C43.9 Malignant melanoma of skin, unspecified (principal); R60.9 Edema, unspecified
CPT/HCPCS: 74178; Q9963; Q9967

== ENCOUNTER → 2019-10-20 | Outpatient (CLI) | payer MEDICARE, OTHER ==
[~2019-10-20] MED LIST changes: -GASTROGRAFIN SOLUTION 30ML (Q9963) As Ordered ONE; -ISOVUE-370 76% 100ML VIAL (Q9967) As Ordered ONE
[2019-10-20 18:57] LABS: ALBUMIN 3.6 GM/DL (3.2-5.2); ALT/SGPT 31 U/L (12-78); BILIRUBIN,TOTAL 0.4 MG/DL (0.2-1.0); BLOOD UREA NITROGEN 15 MG/DL (7-18); CALCIUM LEVEL 8.6 MG/DL (8.8-10.2); CARBON DIOXIDE LEVEL 38 MEQ/L (21-32); CHLORIDE LEVEL 103 MEQ/L (98-107); CREATININE FOR GFR 0.76 MG/DL (0.55-1.30); GLOMERULAR FILTRATION RATE > 60.0 (>45); GLUCOSE, FASTING 79 MG/DL (70-100); POTASSIUM SERUM 4.8 MEQ/L (3.5-5.1); SODIUM LEVEL 141 MEQ/L (136-145); TOTAL PROTEIN 6.2 GM/DL (6.4-8.2)
[2019-10-26 00:06] LABS: IGASUB2 126.3 mg/dL (73.2-301.2); IGASUB3 19.4 mg/dL (13.4-97.9)
== END ==
LOC: M PLALAB 12:23
PROVIDERS: ATTEND Nurse Practitioner Adult Health
DX: R60.9 Edema, unspecified (principal); C43.9 Malignant melanoma of skin, unspecified
CPT/HCPCS: 36415; 80053; 82784; 82787; G0463

== ENCOUNTER → 2020-01-04 | Outpatient (REF) | payer MEDICARE, OTHER ==
[2020-01-04 16:14] LABS: BLOOD UREA NITROGEN 26 MG/DL (7-18); CALCIUM LEVEL 8.5 MG/DL (8.8-10.2); CARBON DIOXIDE LEVEL 39 MEQ/L (21-32); CHLORIDE LEVEL 98 MEQ/L (98-107); CREATININE FOR GFR 0.78 MG/DL (0.55-1.30); GLOMERULAR FILTRATION RATE > 60.0 (>45); GLUCOSE, FASTING 81 MG/DL (70-100); NT-PRO BNP 5322 PG/ML (<125); POTASSIUM SERUM 4.6 MEQ/L (3.5-5.1); SODIUM LEVEL 139 MEQ/L (136-145)
[2020-01-04 18:38] LABS: APPEARANCE, URINE CLEAR (CLEAR); BACTERIA, URINE AUTO NEGATIVE (NEGATIVE); BILIRUBIN, URINE AUTO NEGATIVE (NEGATIVE); BLOOD, URINE BLOOD NEGATIVE (NEGATIVE); COLOR, URINE YELLOW (YELLOW); GLUCOSE, URINE (UA) AUTO NEGATIVE (NEGATIVE); KETONE, URINE AUTO NEGATIVE (NEGATIVE); LEUKOCYTE ESTERASE, URINE AUTO NEGATIVE (NEGATIVE); NITRITE, URINE AUTO NEGATIVE (NEGATIVE); PROTEIN, URINE AUTO NEGATIVE (NEGATIVE); RBC, URINE AUTO 1 /HPF (0-3); SPECIFIC GRAVITY URINE AUTO 1.008 (1.002-1.035); SQUAMOUS EPITHELIAL CELL UR AU 2 /HPF (0-6); UROBILINOGEN, URINE AUTO 0.2 mg/dL (0.0-2.0); WBC, URINE AUTO 1 /HPF (0-3)
== END ==
LOC: M SFHCPLAZ 14:33
PROVIDERS: ATTEND Family Medicine
DX: R39.198 Other difficulties with micturition (principal); R60.0 Localized edema
CPT/HCPCS: 36415; 51798; 80048; 81001; 83880; 87086; G0463

== ENCOUNTER → 2020-01-07 | Outpatient (REF) | payer MEDICARE, OTHER ==
[2020-01-07 11:31] LABS: TOTAL PROTEIN,RANDOM URINE 42.1 MG/DL (0.0-12.0)
== END ==
LOC: M SFHCPLAZ 10:05
PROVIDERS: ATTEND Family Medicine
DX: R60.0 Localized edema (principal)

== ENCOUNTER → 2020-01-12 | Outpatient (CLI) | payer MEDICARE, OTHER ==
--- NOTE | 2020-01-13 08:24 | ECHO ---
DATE OF SERVICE: 01/12/2020 DATE OF : 1955 AGE: 64 REFERRING PROVIDER: Dr. Shaista Montano PATIENT LOCATION: Outpatient REASON FOR STUDY: Pedal edema. 2-D MEASUREMENTS: IVS: 1.4 cm LV: 3.8 cm LVPW: 1.4 cm LA: 2.9 cm Aorta: 2.9 cm IVC: 1.6 cm DOPPLER MEASUREMENTS: Peak velocity across the aortic valve: 1.3 m/s Peak velocity across the LVOT: 0.7 m/s Mitral E: 0.52 Mitral A: 0.85 Ratio: 0.6 Maximum tricuspid valve velocity: 3.2 m/s 2-D COMMENTS: 1. Normal left ventricular size with mildly increased left ventricular wall thickness. Left ventricular systolic function is normal, estimated at 60-65%. 2. Normal left atrium. Both the right atrium and the right ventricle are dilated. The right ventricular free wall also appeared to be hypokinetic consistent with right ventricular systolic dysfunction. 3. The atrial septum appeared to be normal without evidence of defect or shunt. 4. Normal aortic root. 5. Trace pericardial effusion noted, no evidence of cardiac tamponade. 6. Mildly calcified aortic valve with normal leaflet excursion. The mitral valve leaflets appeared to be mildly floppy in nature. Normal tricuspid valve and pulmonic valve. The proximal pulmonary artery branches were not well visualized. 7. The inferior vena cava was normal in size, central venous pressure is probably normal. DOPPLER: It detects trace aortic regurgitation, mild mitral regurgitation, mild pulmonic regurgitation, and moderate tricuspid regurgitation. The calculated pulmonary artery systolic pressure varies between 40-50 mmHg. Abnormal relaxation pattern was noted across the mitral valve leaflets as well as the mitral valve annulus consistent with features of grade 1 left ventricular diastolic dysfunction. IMPRESSIONS: 1. Normal global left ventricular systolic function with mild concentric left ventricle hypertrophy. There are some features of left ventricular diastolic dysfunction, grade 1. 2. Aortic valve sclerosis with trace aortic regurgitation, but no aortic stenosis. 3. Mitral annulus calcification with mild mitral regurgitation. 4. Mild pulmonic regurgitation. 5. Moderate tricuspid regurgitation with moderate pulmonary hypertension and dilated right heart chambers. There are also findings of right ventricular systolic dysfunction. 6. Trace pericardial effusion.
== END ==
LOC: M CARPUL 10:28
PROVIDERS: ATTEND Family Medicine
DX: R60.0 Localized edema (principal)

== ENCOUNTER → 2020-01-20 | Outpatient (REF) | payer MEDICARE, OTHER ==
[2020-01-20 12:27] LABS: INR 1.16; PROTHROMBIN TIME 14.5 SECONDS (11.8-14.0)
[2020-01-20 12:57] LABS: ALT/SGPT 39 U/L (12-78); BILIRUBIN,TOTAL 0.4 MG/DL (0.2-1.0); BLOOD UREA NITROGEN 34 MG/DL (7-18); CALCIUM LEVEL 8.2 MG/DL (8.8-10.2); CARBON DIOXIDE LEVEL 39 MEQ/L (21-32); CHLORIDE LEVEL 95 MEQ/L (98-107); CREATININE FOR GFR 0.84 MG/DL (0.55-1.30); GLOMERULAR FILTRATION RATE > 60.0 (>45); GLUCOSE, FASTING 59 MG/DL (70-100); POTASSIUM SERUM 4.4 MEQ/L (3.5-5.1); SODIUM LEVEL 139 MEQ/L (136-145); TOTAL PROTEIN 6.2 GM/DL (6.4-8.2)
[2020-01-25 15:19] LABS: AFP TUMOR TOTAL 0.9 ng/mL (0.0-8.0)
== END ==
LOC: M PLALAB 11:33
PROVIDERS: ATTEND Family Medicine
DX: R16.0 Hepatomegaly, not elsewhere classified (principal)
CPT/HCPCS: 36415; 80053; 82107; 85610; G0463

== ENCOUNTER → 2020-01-31 | Outpatient (CLI) | payer MEDICARE, OTHER ==
--- NOTE | 2020-01-31 16:15 | REP ---
REASON: History of bilateral endarterectomy. Echogenic material is seen along the carotid arterial ramos some of which casts acoustic shadow consistent with calcific deposition. RIGHT LEFT Peak systolic velocity ICA 51.7 cm/s 50.3 cm/s End diastolic velocity ICA 10.9 cm/s 14.2 cm/s Peak systolic velocity CCA 59.2 cm/s 71.7 cm/s Peak systolic velocity ECA 16.7 cm/s 21.6 cm/s ICA/CCA ratio 1.15 1.43 Evaluation of the spectral waveform shows no significant spectral broadening. There is antegrade flow seen on both vertebral arteries. According to the NASCET consensus criteria, there is less than 50% stenosis of the internal carotid artery bilaterally. This is secondary to both calcified and noncalcified plaque formation. Electronically Signed by Maldonado Nuno DO 01/31/2020 05:14 P
== END ==
LOC: M RAD 14:30
PROVIDERS: ATTEND Physician Assistant
DX: I65.23 Occlusion and stenosis of bilateral carotid arteries (principal)

== ENCOUNTER → 2020-02-10 | Outpatient (CLI) | payer MEDICARE, OTHER ==
[~2020-02-10] MED LIST changes: +GASTROGRAFIN SOLUTION 30ML (Q9963) As Ordered ONE; +ISOVUE-370 76% 100ML VIAL As Ordered ONE
--- NOTE | 2020-02-10 14:58 | REP ---
REASON FOR EXAM: Abdominal distention. COMPARISON: Multiple, the latest 09/23/2019. CONTRAST: 100 mL Isovue 370. The lung bases show chronic changes but with superimposed new patchy and asymmetric densities. There are no pleural or pericardial effusions. Note is again made with incidental calcified granuloma of the right lower lobe. The liver, spleen, pancreas, adrenal glands, kidneys are unchanged. The abdominal aorta and paraaortic regions are unchanged. The bowel loops and their mesenteries are unchanged. No free fluid or free air is seen in the abdomen or pelvis. No intra-abdominal or intrapelvic mass or adenopathy has developed. There is no change in the appearance of the osseous structures. There are chronic spinal degenerative changes status quo. IMPRESSION: 1. Lung base opacities as described above likely chronic fibrotic and subsegmental atelectatic changes, however, I would recommend followup to ensure resolution. Some of the opacities have a somewhat nodular appearance. 3-month followup with chest CT is warranted. 2. There is no evidence of significant change in the appearance of the intra-abdominal and intrapelvic contents. There is no evidence of acute intra-abdominal or intrapelvic disease. There is a large amount of content seen throughout the colon. Electronically Signed by Maldonado Nuno DO 02/10/2020 05:05 P
== END ==
LOC: M RAD 10:34
PROVIDERS: ATTEND Family Medicine
DX: R16.0 Hepatomegaly, not elsewhere classified (principal); R14.0 Abdominal distension (gaseous); J84.10 Pulmonary fibrosis, unspecified
CPT/HCPCS: 74177; Q9963; Q9967

== ENCOUNTER → 2020-03-09 | Outpatient (REF) | payer MEDICARE, OTHER ==
[~2020-03-09] MED LIST changes: -ASPI81TA85 PO; +ASPI81TA86 PO; +CARD1TAB5 PO; +GABA-1171 PO; +GABA-843 PO; -GASTROGRAFIN SOLUTION 30ML (Q9963) As Ordered ONE; -ISOVUE-370 76% 100ML VIAL As Ordered ONE; +MED REC COMMENT; +OMEP1CAP73 PO; +OXYB10TA23 PO; +OXYC1TAB23 PO; +PRED10TA2 PO; +ROPI1TAB3 PO; +SPIR-10 PO; +SPIR12.9 INH; +TIZA4CAP PO; +TORS100T PO; +VENTAER INH; +VITA50005 PO
== END ==
LOC: M LAB REF 17:49
PROVIDERS: ATTEND Dermatology
DX: D04.71 Carcinoma in situ of skin of right lower limb, including hip (principal); D04.72 Carcinoma in situ of skin of left lower limb, including hip; D04.62 Carcinoma in situ of skin of left upper limb, including shoulder; D23.5 Other benign neoplasm of skin of trunk
CPT/HCPCS: 11102; 11103; 17000; 17003; 88305; G0463

== ENCOUNTER → 2020-03-20 | Outpatient (CLI) | payer MEDICARE, OTHER ==
--- NOTE | 2020-03-20 10:17 | REP ---
Clinical: Symptoms related to atherosclerotic disease and intermittent claudication. Technique: Real time thomas scale and color Doppler evaluation of the bilateral lower extremity arterial vasculature using linear high frequency transducer. Findings: Thomas scale and color images demonstrate mild amounts of atheromatous plaquing with areas of minimal narrowing but no focal stenosis identified. Doppler interrogation demonstrates normal primarily triphasic arterial wave forms and velocities bilaterally. Peak systolic velocities (cm/sec) RIGHT LEFT CHAPIN 1.1 1.3 Common femoral artery 97.5 118.4 Profunda femoris 56.0 60.5 SFA (proximal) 75.7 82.5 SFA (mid) 74.7 83.2 SFA (distal) 64.8 54.7 Popliteal artery 58.1 46.9 ERIC (prox.) 52.7 50.9 Tibioperoneal trunk 43.3 51.6 TORCH SOLDERER (prox.) 46.6 58.7 TORCH SOLDERER (distal) 58.3 62.4 ERIC (distal) 61.1 61.4 Impression: Mild atheromatous changes with areas of narrowing but no obvious focal occlusion or stenosis. Electronically Signed by Parth Hinojosa MD 03/20/2020 10:09 A
== END ==
LOC: M RAD 08:46
PROVIDERS: ATTEND Surgery Vascular Surgery
DX: I70.213 Atherosclerosis of native arteries of extremities with intermittent claudication, bilateral legs (principal)

== ENCOUNTER → 2020-03-23 | Outpatient (CLI) | payer MEDICARE, OTHER ==
[~2020-03-23] MED LIST changes: +HALO0.5H PO
--- NOTE | 2020-03-23 10:34 | REP ---
BILATERAL LOWER EXTREMITY VENOUS ULTRASOUND: Reflux exam. HISTORY: Venous insufficiency, chronic, peripheral. Comparison study 07/31/2018. FINDINGS: The deep veins are anechoic and fully compressible on two-dimensional scanning from the groin to the popliteal fossa bilaterally. There is no evidence of DVT. Incidental note is made of prominent phasicity and bidirectional flow in the venous Doppler tracings in the deep venous system bilaterally. This is felt to represent a change from the 2018 prior study and suggests tricuspid valve regurgitation versus increased right atrial pressures. REFLUX EVALUATION: On the left, no reflux was observed with the bed tipped or standing. The greater saphenous vein measurements are 5.4, 3.1, and 2.7 mm at the proximal, mid thigh, and knee level respectively. Lesser saphenous vein diameter is 1.9 mm. On the right no reflux was observed standing. Minimal reflux is seen in the distal femoral vein, 1.2-second duration. Minimal reflux is seen in the lesser saphenous vein above a chronic calcification essentially unchanged from 2018. Greater saphenous vein and diameters are: 4.3, 2.9, and 2.8 mm at the proximal, mid thigh, and knee level respectively. The lesser saphenous vein is 2.6 mm in diameter. Reflux duration in the lesser saphenous vein is 5.8 seconds. IMPRESSION: There is mild reflux noted on the right. Bidirectional flow and increased phasicity is identified in the venous Doppler tracings bilaterally suggesting increased right atrial pressures or tricuspid valve regurgitation. This is felt to represent a change from the 2018 prior study. Unreviewed
== END ==
LOC: M RAD 08:42
PROVIDERS: ATTEND Surgery Vascular Surgery
DX: I87.2 Venous insufficiency (chronic) (peripheral) (principal)

== ENCOUNTER → 2020-03-29 | Outpatient (CLI) | payer MEDICARE, OTHER ==
[~2020-03-29] MED LIST changes: -HALO0.5H PO
--- NOTE | 2020-05-19 13:44 | REP ---
CT STUDY OF THE CHEST WITHOUT CONTRAST: HISTORY: Other abnormal nonspecific finding of the lung anton. Patient gives history of pulmonary arterial hypertension. COMPARISON: CT study from 09/30/16. FINDINGS: Preliminary digital data power consultant radiograph demonstrates hyperinflation. The heart is not felt to be enlarged. There are mild emphysematous changes again noted in the upper lobes. Scattered fibrotic changes are seen. There are granulomatous calcifications noted bilaterally anteriorly and in the right lower lobe and left lower lobe. There are lower lobe emphysematous changes also again noted. No new pulmonary nodule is seen. Some vascular calcification is observed. No hilar or mediastinal mass or adenopathy is seen. The visualized upper abdominal structures are unremarkable. Today's study demonstrates a new triangular, noncalcified pulmonary nodule in the right lower lobe, 4 mm in diameter displayed on page 48 of 118 in series 201 of today's study. In addition, there is a new nodular density which appears to be cavitary in the left lower lobe posteriorly on page 79 of 118. This measures 6 mm in diameter. IMPRESSION: Emphysematous changes and scattered areas of fibrosis and granulomatous calcifications. Two new noncalcified pulmonary nodules, the largest of which is in the left lower lobe and shows cavitary changes. Suggest follow up chest CT study in 4-6 months. CHANELL
== END ==
LOC: M RAD 14:48
PROVIDERS: ATTEND Internal Medicine Pulmonary Disease
DX: R91.8 Other nonspecific abnormal finding of lung field (principal)

== ENCOUNTER → 2020-04-02 | Outpatient (REF) | payer MEDICARE, OTHER | LOC: M LAB REF 06:33 | PROVIDERS: ATTEND Physician Assistant Medical | DX: Z11.59 Encounter for screening for other viral diseases (principal); Z20.828 Contact with and (suspected) exposure to other viral communicable diseases ==

== ENCOUNTER 2020-06-30 11:22 | Emergency (ER) | payer MEDICARE, OTHER ==
[~2020-06-30] VITALS: Ht 172.7 cm; Wt 61.3 kg
[~2020-06-30 11:22] MED LIST changes: -CARD1TAB5 PO; -GABA-1171 PO; -GABA-843 PO; -MED REC COMMENT; -OMEP1CAP73 PO; -OXYB10TA23 PO; -OXYC1TAB23 PO; -PRED10TA2 PO; -ROPI1TAB3 PO; -SPIR-10 PO; -SPIR12.9 INH; -TIZA4CAP PO; -TORS100T PO; -VENTAER INH; -VITA50005 PO
--- NOTE | 2020-06-30 11:49 | REP ---
INDICATION: Altered Mental Status. COMPARISON: September 10, 2016. TECHNIQUE: Helical scanning is acquired. 5 mm axial images were reformatted. Coronal MPR images were generated. FINDINGS: Bone window settings demonstrate an intact bony calvarium. There is no evidence of skull fracture or incidental bony calvarial lesion. The visualized paranasal sinuses appear clear. No intraorbital abnormality is seen. On soft tissue window setting images; the lateral, third, and fourth ventricles are normal in size and position. Thomas-white differentiation pattern is normal above and below the tentorium. There are is no evidence of intracranial hemorrhage. No mass, edema, infarction, or midline shift is seen. No extra-axial fluid collection is appreciated. There is some vascular calcification of the carotid siphons bilaterally. IMPRESSION: Vascular calcification in the distal carotid arteries again noted. Otherwise negative. No acute intracranial abnormality.. <Electronically signed by Archie Blackburn > 06/30/20 [id number]
[2020-06-30 13:18] LABS: BASO # 0.1 10^3/uL (0.0-0.2); BASO % 0.8 % (0.0-1.0); EOS # 0.2 10^3/uL (0.0-0.5); EOS % 1.6 % (0.0-3.0); HEMATOCRIT 47.1 % (36.0-47.0); HEMOGLOBIN 14.3 g/dl (12.0-15.5); LYMPH # 1.5 10^3/uL (1.5-5.0); LYMPH % 14.4 % (24.0-44.0); MEAN CORPUSCULAR HEMOGLOBIN 24.4 pg (27.0-33.0); MEAN CORPUSCULAR HGB CONC 30.4 g/dl (32.0-36.5); MEAN CORPUSCULAR VOLUME 80.2 fl (80.0-96.0); MONO # 1.1 10^3/uL (0.0-0.8); MONO % 11.3 % (0.0-5.0); NEUTROPHILS # 7.2 10^3/uL (1.5-8.5); NEUTROPHILS % 71.5 % (36.0-66.0); PLATELET COUNT, AUTOMATED 278 10^3/uL (150-450); RED BLOOD COUNT 5.87 10^6/uL (4.00-5.40); WHITE BLOOD COUNT 10.1 10^3/uL (4.0-10.0)
--- NOTE | 2020-06-30 14:04 | REP ---
INDICATION: Altered Mental Status. COMPARISON: Comparison chest x-ray October 29, 2016.. TECHNIQUE: Portable upright AP view. Two views presented. FINDINGS: The lungs are hyperinflated as before consistent with some degree of COPD. Heart is felt to be mildly enlarged. Pulmonary vasculature and interstitial markings are prominent consistent with interstitial edema. No pleural effusion is seen. Monitoring electrodes are noted. No acute bony abnormality IMPRESSION: Mild cardiomegaly and diffuse interstitial edema pattern question CHF. Interstitial edema pattern and cardiac enlargement are new findings compared to the 2017 prior study. <Electronically signed by Archie Blackburn > 06/30/20 1400
[2020-06-30 14:37] LABS: AMPHETAMINES LEVEL URINE NEGATIVE (NEGATIVE); BARBITURATES URINE POSITIVE (NEGATIVE); BENZODIAZEPINES URINE POSITIVE (NEGATIVE); CANNABINOIDS URINE NEGATIVE (NEGATIVE); COCAINE METABOLITE URINE NEGATIVE (NEGATIVE); METHADONE URINE NEGATIVE (NEGATIVE); OPIATES URINE NEGATIVE (NEGATIVE); PHENCYCLIDINE URINE NEGATIVE (NEGATIVE)
[2020-06-30 15:17] LABS: INR 1.15
[2020-06-30 15:33] LABS: ACETAMINOPHEN LEVEL < 2.0 UG/ML (10.0-30.0); ALT/SGPT 24 U/L (12-78); BILIRUBIN,DIRECT 0.3 MG/DL (0.0-0.2); BILIRUBIN,TOTAL 0.8 MG/DL (0.2-1.0); BLOOD UREA NITROGEN 40 MG/DL (7-18); CALCIUM LEVEL 8.5 MG/DL (8.8-10.2); CARBON DIOXIDE LEVEL 37 MEQ/L (21-32); CHLORIDE LEVEL 94 MEQ/L (98-107); CK-MB VALUE MASS 3.7 NG/ML (<3.6); CPK CREATINE PHOSPHOKINASE 121 U/L (26-192); CREATININE FOR GFR 0.93 MG/DL (0.55-1.30); ETHYL ALCOHOL (ETHANOL) 0.003 % (0.000-0.010); GLOMERULAR FILTRATION RATE > 60.0 (>45); GLUCOSE, FASTING 69 MG/DL (70-100); MB/CK RELATIVE INDEX 3.06 (< OR =4); NT-PRO BNP 5086 PG/ML (<125); SALICYLATE LEVEL 2.6 MG/DL (5.0-30.0); SODIUM LEVEL 139 MEQ/L (136-145); TOTAL PROTEIN 6.3 GM/DL (6.4-8.2); TROPONIN I 0.04 NG/ML (< 0.10)
[2020-06-30 16:15] VITALS: BP 101/60
--- NOTE | 2020-06-30 18:18 | ED PDOC ---
Post-Departure Follow-Up callie paz faxed formal report of cxr for fu . pt had signed out ama . Manjeet Grant lg, MD Jun 30, 2020 18:18
--- NOTE | 2020-07-01 07:47 | ECGEPIP ---
[facility] - ED Test Date: 2020-06-30 Pat Name: NICK SANDY Department: Room: - Gender: Female Medical Leader: XAVI : 1955 Requested By: Manjeet Monreal Order Number: [id number] Reading MD: Valentin Cortes Measurements Intervals [place] Rate: 75 P: 89 VA: 88 QRS: 111 QRSD: 113 T: -77 QT: 411 QTc: 460 Interpretive Statements SINUS RHYTHM WITH SHORT VA INTERVAL INCOMPLETE RIGHT BUNDLE BRANCH BLOCK RIGHT VENTRICULAR HYPERTROPHY ANTEROSEPTAL MYOCARDIAL INFARCTION, OF INDETERMINATE AGE MODERATE T-WAVE ABNORMALITY, CONSIDER INFERIOR ISCHEMIA NO PRIORS FOR COMPARISON Electronically Signed on 07-01-2020 7:47:03 EDT by Valentin Cortes
== END 2020-06-30 16:44 | disposition left against medical advice (07) ==
LOC: M ED 11:22
DX: I50.9 Heart failure, unspecified (principal); R09.02 Hypoxemia; R41.82 Altered mental status, unspecified; I65.23 Occlusion and stenosis of bilateral carotid arteries; I11.0 Hypertensive heart disease with heart failure; J44.9 Chronic obstructive pulmonary disease, unspecified; F17.200 Nicotine dependence, unspecified, uncomplicated; Z91.19 Patient's noncompliance with other medical treatment and regimen; Z88.2 Allergy status to sulfonamides; Z79.899 Other long term (current) drug therapy; Z79.51 Long term (current) use of inhaled steroids
CPT/HCPCS: 36415; 36600; 70450; 71045; 80053; 80307; 81001; 82140; 82550; 82553; 82803; 83605; 83880; 84443; 84484; 85025; 85610; 87040; 87086; 93005; 93041; 99285; G0480

== ENCOUNTER 2020-07-04 12:17 | Observation (INO) | payer MEDICARE, OTHER ==
[~2020-07-04] VITALS: Ht 175.3 cm; Wt 62.5 kg
[2020-07-04] MEDS ORDERED: OXYC1TAB23 PO (12:36)
--- NOTE | 2020-07-04 13:21 | REP ---
INDICATION: Altered Mental Status. COMPARISON: Chest x-ray 06/30/2020, CT 03/29/2020 TECHNIQUE: AP portable two views FINDINGS: Lungs are hyperinflated. Some underlying fibrosis and COPD with some chronic coarsened interstitial changes. There is some mild venous hypertension with upper lobe venous engorgement but far fewer Kiersten B lines in the bases compared to previous study. No dense consolidation or visible effusion. Heart with left ventricular configuration. The aorta is calcified at the arch but unchanged. The pulmonary arteries are prominent centrally suggesting pulmonary artery hypertension. Bones show mild levoconvex curvature of the thoracic spine. No acute focal bone abnormality evident. No free air under the diaphragm IMPRESSION: 1. Left ventricular configuration of the heart with some mild venous hypertension and improved interstitial edema compared to the previous study on 06/30/2020. No gross effusion, dense consolidation or definite mass. 2. Calcified aortic arch without gross aneurysm. 3. There is evidence for pulmonary artery hypertension which combined with the hyperinflated lung anton suggests COPD. <Electronically signed by Leo Bhardwaj > 07/04/20 [id number]
[2020-07-04] MEDS ORDERED: LORazepam 2 MG/ML VIAL IM ONE (13:30)
[2020-07-04 14:15] LABS: AMPHETAMINES LEVEL URINE NEGATIVE (NEGATIVE); BARBITURATES URINE NEGATIVE (NEGATIVE); BENZODIAZEPINES URINE NEGATIVE (NEGATIVE); CANNABINOIDS URINE NEGATIVE (NEGATIVE); COCAINE METABOLITE URINE NEGATIVE (NEGATIVE); METHADONE URINE NEGATIVE (NEGATIVE); OPIATES URINE NEGATIVE (NEGATIVE); PHENCYCLIDINE URINE NEGATIVE (NEGATIVE)
[2020-07-04 14:37] LABS: BASO % 0.5 % (0.0-1.0); EOS # 0.1 10^3/uL (0.0-0.5); EOS % 1.5 % (0.0-3.0); HEMATOCRIT 49.1 % (36.0-47.0); LYMPH # 1.3 10^3/uL (1.5-5.0); MEAN CORPUSCULAR HEMOGLOBIN 24.7 pg (27.0-33.0); MEAN CORPUSCULAR HGB CONC 30.5 g/dl (32.0-36.5); MEAN CORPUSCULAR VOLUME 80.8 fl (80.0-96.0); MONO # 0.9 10^3/uL (0.0-0.8); MONO % 11.4 % (0.0-5.0); NEUTROPHILS # 5.5 10^3/uL (1.5-8.5); NEUTROPHILS % 70.3 % (36.0-66.0); PLATELET COUNT, AUTOMATED 275 10^3/uL (150-450); RED BLOOD COUNT 6.08 10^6/uL (4.00-5.40); WHITE BLOOD COUNT 7.9 10^3/uL (4.0-10.0)
--- NOTE | 2020-07-04 15:08 | REP ---
INDICATION: Altered Mental Status. COMPARISON: Comparison CT brain study June 30, 2020.. TECHNIQUE: Helical scanning is acquired. 5 mm axial images were reformatted. Coronal MPR images were generated. FINDINGS: Bone window settings demonstrate an intact bony calvarium. There is no evidence of skull fracture or incidental bony calvarial lesion. The visualized paranasal sinuses appear clear. No intraorbital abnormality is seen. On soft tissue window setting images; the lateral, third, and fourth ventricles are normal in size and position. Thomas-white differentiation pattern is normal above and below the tentorium. There are is no evidence of intracranial hemorrhage. No mass, edema, infarction, or midline shift is seen. No extra-axial fluid collection is appreciated. There is mild vascular calcification in the distal internal carotid arteries. Mild generalized volume loss is noted. IMPRESSION: Mild generalized volume loss and vascular calcification. Otherwise negative CT brain without contrast.. <Electronically signed by Archie Blackburn > 07/04/20 [id number]
[2020-07-04] MEDS ORDERED: LORazepam 2 MG/ML VIAL IV STA (15:11)
[2020-07-04 15:16] LABS: ACETAMINOPHEN LEVEL < 2.0 UG/ML (10.0-30.0); ALBUMIN 3.3 GM/DL (3.2-5.2); ALT/SGPT 27 U/L (12-78); BILIRUBIN,DIRECT 0.3 MG/DL (0.0-0.2); BILIRUBIN,TOTAL 0.7 MG/DL (0.2-1.0); CK-MB VALUE MASS 5.5 NG/ML (<3.6); CPK CREATINE PHOSPHOKINASE 172 U/L (26-192); ETHYL ALCOHOL (ETHANOL) < 0.003 % (0.000-0.010); NT-PRO BNP 8037 PG/ML (<125); SALICYLATE LEVEL 2.9 MG/DL (5.0-30.0); TROPONIN I 0.04 NG/ML (< 0.10)
[2020-07-04] MEDS ORDERED: FUROSEMIDE 40MG/4ML VIAL (J1940) IV ONE (16:15)
[2020-07-04] MEDS ORDERED: ACETAMINOPHEN TAB 650MG DOSE (2X325MG) PO PRN (16:45)
[2020-07-04] MEDS ORDERED: SPIR-10 PO (16:52)
[2020-07-04] MEDS ORDERED: CARD1TAB5 PO (16:52)
[2020-07-04] MEDS ORDERED: OMEP1CAP73 PO (16:52)
[2020-07-04] MEDS ORDERED: VITA50005 PO (16:52)
[2020-07-04] MEDS ORDERED: ROPI1TAB3 PO ×2 (16:52)
[2020-07-04] MEDS ORDERED: SPIR12.9 INH (16:52)
[2020-07-04] MEDS ORDERED: TIZA4CAP PO (16:52)
[2020-07-04] MEDS ORDERED: TORS100T PO (16:52)
[2020-07-04] MEDS ORDERED: GABA-843 PO (16:52)
[2020-07-04] MEDS ORDERED: OXYB10TA23 PO (16:53)
[2020-07-04] MEDS: HEPARIN SOD (PORCINE) 5000UNITS/ML 1ML VIAL/SYRINGE SC SCH (17:00)
[2020-07-04] MEDS ORDERED: ISOVUE-370 76% 100ML VIAL As Ordered ONE (17:04)
--- NOTE | 2020-07-04 17:30 | HPEPDOC ---
[facility] Medical History & Physical Date of Admission Jul 04, 2020 Date of Service: Jul 04, 2020 History and Physical Chief complaint: Who presented to the hospital with confusion History of present illness: Patient is a 64-year-old female with a PMHx of PVD (on Plavix), Ray nauds, RLS, Essenial tremors, Depression / Anxiety, Peripheral polyneuropathy who presented to the hospital after she had seen her primary care provider. Patient was seen by Dr. Montano and was noted to be acting abnormal. Was sent to the emergency room for further evaluation. Currently patient is oriented to person and place. However, not fully oriented to time. She is aware of who the president is. Patient denies any chest pain, shortness breath or palpitations. She reports a dry cough. Denies any nausea, vomiting, abdominal pain, diarrhea, constipation, or urinary discomfort. Patients son is present at the bedside who is providing additional details of the story. He is indicated that the patient has been taking non-prescribed medications from her neighbors; most recent of which she has been taking barbiturates. Patient reports that she is but lives with 2 adult roommates and 3 children, 2 of which are her grandchildren. 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 Review of Systems: 10 point review of systems complete, all negative otherwise stated in HPI Physical exam: - Vitals: BP [105/63], HR [80], RR [16], Sat [94%RA], Temp [96.6F] - General: Lying in bed, No acute distress, Awake / Alert; Oriented to person / day+month / not to place / aware of president - HEENT: NC, AT, PERRLA, EOMI - CVS: RRR, +S1S2, - Murmurs / rubs / gallops - Lungs: Fair air entry bilaterally, No appreciable wheezing / rales / rhonchi - Abdomen: Soft, Non-distended, Non-tender - Extremities: No lower extremity edema, No calf tenderness - Neuro: No focal motor or sensory deficit - Skin: No visible rashes Assessment and Plan: Acute toxic encephalopathy - Patient presented to the ER from PCP - Currently patient is oriented to person, time, not place - Patient denies any suicidal ideation - Physicals without any focal neurologic deficits - CT head 07/04: Mild generalized volume loss and vascular calcification. Otherwise negative CT brain without contrast. - c/w Neuro checks - Patient follows with neurology as an outpatient - Will hold home medications for now; Hold Tizanidine Acute hypoxic respiratory failure - Saturating at 80% on room air - CXR 07/04: 1. Left ventricular configuration of the heart with some mild venous hypertension and improved interstitial edema compared to the previous study on 06/30/2020. No gross effusion, dense consolidation or definite mass. 2. Calcified aortic arch without gross aneurysm. 3. There is evidence for pulmonary artery hypertension which combined with the hyperinflated lung anton suggests COPD. - Kip get CTA chest PVD - c/w Atorvastatin and Plavix Raynauds - c/w Diltiazem RLS / Essential tremors / Depression / Anxiety - c/w Primidone and Ropinirole Peripheral polyneuropathy - Will c/w adjusted dose of Gabapentin GERD - c/w Omeprazole DVT prophylaxis - Will start heparin Vital Signs Vital Signs Date Time Temp Pulse Resp B/P (MAP) Pulse Ox O2 Delivery O2 Flow Rate FiO2 07/04/20 16:45 85 20 132/72 (92) 90 Nasal Cannula 2.0 07/04/20 15:55 07/04/20 12:18 96.6 Laboratory Data Labs 24H Laboratory Tests 2 07/04/20 13:37: Urine Opiates Screen NEGATIVE, Urine Methadone Screen NEGATIVE, Urine Barbiturates Screen NEGATIVE, Urine Phencyclidine Screen NEGATIVE, Urine Amphetamines Screen NEGATIVE, Urine Benzodiazepines Screen NEGATIVE, Urine Cocaine Metabolite Screen NEGATIVE, Urine Cannabinoids Screen NEGATIVE 07/04/20 14:12: Immature Granulocyte % (Auto) 0.3, Neutrophils (%) (Auto) 70.3H, Lymphocytes (%) (Auto) 16.0L, Monocytes (%) (Auto) 11.4H, Eosinophils (%) (Auto) 1.5, Basophils (%) (Auto) 0.5, Neutrophils # (Auto) 5.5, Lymphocytes # (Auto) 1.3L, Monocytes # (Auto) 0.9H, Eosinophils # (Auto) 0.1, Basophils # (Auto) 0.0, Nucleated Red Blood Cells % (auto) 0.0, Total Bilirubin 0.7, Direct Bilirubin 0.3H, Aspartate Amino Transf (AST/SGOT) 34, Alanine Aminotransferase (ALT/SGPT) 27, Alkaline Phosphatase 142H, Ammonia 19, Total Creatine Kinase 172, Creatine Kinase MB 5.5H, Creatine Kinase MB Relative Index 3.20, Troponin I 0.04, HA-Omk-N-Type Natriuretic Peptide 8037H, Total Protein 7.0, Albumin 3.3, Albumin/Globulin Ratio 0.9L, Thyroid Stimulating Hormone (TSH) 3.500, Salicylates Level 2.9L, Acetaminophen Level < 2.0L, Ethyl Alcohol Level < 0.003 07/04/20 14:26: Bedside Glucose (Misc Panel) 123H 07/04/20 14:27: POC Glucose (Misc Panel) 120H, POC Sodium (Misc Panel) 139, POC Potassium (Misc Panel) 3.7, POC Chloride (Misc Panel) 92L, POC Total CO2 (Misc Panel) 40.0H, POC Blood Urea Nitrogen (Misc Panel 37H, POC Ionized Calcium (Misc Panel) 3.8L, POC Creatinine (Misc Panel) 0.8, POC Hematocrit (Misc Panel) 51.0 07/04/20 14:31: POC Lactate (Misc Panel) 2.21*H CBC/BMP Laboratory Tests 07/04/20 14:12 Microbiology Microbiology 07/04/20 Blood Culture, Received Pending 07/04/20 Blood Culture, Received Pending Home Medications Scheduled Alprazolam (Xanax) 0.25 Mg Tab, 0.25 MG PO BID Atorvastatin Calcium (Atorvastatin Calcium) 40 Mg Tab, 40 MG PO DAILY Budesonide/Formoterol (Symbicort 160-4.5 Mcg Inhaler) 60 Puff/Inhaler Aers, 2 PU FF INH BID Diltiazem HCl (Cardizem LA) 120 Mg Tab.er.24h, 120 MG PO DAILY Ergocalciferol (Vitamin D2) (Vitamin D2) 50,000 Units Cap, 50,000 UNITS PO QWEEK FRIDAY Gabapentin (Gabapentin) 300 Mg Capsule, 300 MG PO TID Omeprazole (Omeprazole) 20 Mg Capsule.dr, 20 MG PO DAILY Oxybutynin Chloride (Oxybutynin Chloride ER) 10 Mg Tab.er.24, 10 MG PO DAILY Primidone (Mysoline) 50 Mg Tab, 100 MG PO BID Ropinirole HCl (Ropinirole HCl) 1 Mg Tablet, 1 MG PO QAM Ropinirole HCl (Ropinirole HCl) 1 Mg Tablet, 2 MG PO QHS Spironolactone (Spironolactone) 25 Mg Tablet, 25 MG PO DAILY Tiotropium [place] (Spiriva Respimat) 4 Gm Mist.inhal, 2 PUFFS INH DAILY Tizanidine HCl (Tizanidine HCl) 4 Mg Capsule, 4 MG PO TID Torsemide (Torsemide) 100 Mg Tablet, 100 MG PO DAILY Scheduled PRN Oxycodone HCl/Acetaminophen (Oxycodone-Acetaminophen 5-325) 1 Each Tablet, 1 TAB PO BID PRN for PAIN Allergies Coded Allergies: Sulfa (Sulfonamide Antibiotics) (Verified Allergy, Unknown, 07/04/20) KATIE VERMA MD Jul 04, 2020 17:30
[2020-07-04 18:49] VITALS: BP 111/73
--- NOTE | 2020-07-04 19:20 | REPVR ---
PROCEDURE INFORMATION: Exam: CT Angiography Chest With Contrast Exam date and time: 07/04/2020 5:50 PM Age: 64 years old Clinical indication: Other: Hypoxia TECHNIQUE: Imaging protocol: Computed tomographic angiography of the chest with intravenous contrast. 3D rendering (Not supervised by radiologist): MIP and/or 3D reconstructed images were created by the technologist. Radiation optimization: All CT scans at this facility use at least one of these dose optimization techniques: automated exposure control; mA and/or kV adjustment per patient size (includes targeted exams where dose is matched to clinical indication); or iterative reconstruction. Contrast material: ISOVUE 370; Contrast volume: 75 ml; Contrast route: INTRAVENOUS (IV); COMPARISON: CT Chest without contrast 03/29/2020 3:31 PM FINDINGS: Pulmonary arteries: No CT evidence of acute pulmonary embolism. Aorta: No CT evidence of acute thoracic aortic dissection, thoracic aneurysm or acute intramural thoracic aortic hematoma. Lungs: Bilateral pulmonary hyperinflation, consistent with underlying COPD. Both lungs are well-aerated. There are, however, patchy areas of pulmonary air trapping with a mosaic pattern of alternating hypo- and hyperattenuating lung parenchyma in both upper and lower lungs. Small calcified nodules are seen in the right lower lobe consistent with prior chronic granulomatous lung disease. Pleural space: Unremarkable. No pneumothorax. No pleural effusion. Heart: The heart size is normal. A small anterior pericardial effusion is present. Moderate coronary artery calcification is present. Lymph nodes: Unremarkable. No enlarged lymph nodes. Liver: The left lobe of the liver is enlarged suspicious for underlying cirrhosis. A small amount of perihepatic ascites is present in the right upper quadrant abdomen. Bones/joints: Mild chronic degenerative vertebral body endplate osteophytic disease is seen in the mid to lower thoracic spine. Soft tissues: Unremarkable. IMPRESSION: 1. Bilateral pulmonary hyperinflation, consistent with underlying COPD. Both lungs are well-aerated. There are, however, patchy areas of pulmonary air trapping with a mosaic pattern of alternating hypo- and hyperattenuating lung parenchyma in both upper and lower lungs. Pulmonary air trapping can be idiopathic, seen in normal asymptomatic individuals - or can be associated with abnormal retention of air in the lungs where it is difficult to exhale completely - as is seen in obstructive lung diseases such as acute bronchiolitis/acute reactive airways disease/acute asthma or chronic diseases such as COPD (emphysema and chronic bronchitis), chronic asthma, chronic pulmonary embolism, hypersensitivity pneumonitis and bronchiolitis obliterans. 2. Small calcified nodules are seen in the right lower lobe consistent with prior chronic granulomatous lung disease. 3. No CT evidence of acute pulmonary embolism. 4. No CT evidence of acute thoracic aortic dissection, thoracic aneurysm or acute intramural thoracic aortic hematoma. 5. The heart size is normal. A small anterior pericardial effusion is present. Moderate coronary artery calcification is present. 6. The left lobe of the liver is enlarged suspicious for underlying cirrhosis. A small amount of perihepatic ascites is present in the right upper quadrant abdomen. 7. Mild chronic degenerative vertebral body endplate osteophytic disease is seen in the mid to lower thoracic spine. Electronically signed by: Zbigniew Vazquez On 07/04/2020 19:20:03 PM
[2020-07-04] MEDS ORDERED: NICOTINE 14 MG/24 HR TRANSDERMAL TD PRN (19:30)
[2020-07-04] MEDS: ALPRAZolam 0.25 MG TAB PO SCH (19:46)
[2020-07-04 20:00] VITALS: BP 120/72; O2SAT 90
[2020-07-04] MEDS: SYMBICORT 160/4.5MCG INHALER 6GM INH SCH (20:06)
[2020-07-04 21:00] VITALS: O2SAT 87
[2020-07-04] MEDS ORDERED: rOPINIRole 1MG TAB PO SCH (21:00)
[2020-07-04] MEDS ORDERED: GABAPENTIN 300 MG CAP PO SCH (21:00)
[2020-07-04] MEDS ORDERED: IPRATROPIUM 0.5MG/ALBUTEROL 2.5MG INH SOL UD 3ML (DUONEB) NEB PRN (21:15)
[2020-07-04 22:00] VITALS: O2SAT 97
[2020-07-04] MEDS: PRIMIDONE 50 MG TAB PO SCH (22:59)
[2020-07-04 23:00] VITALS: O2SAT 93
[2020-07-05] VITALS (13 sets, daily range): BP systolic 116–136; BP diastolic 60–78; O2SAT 80–98
[2020-07-05] MEDS: HEPARIN SOD (PORCINE) 5000UNITS/ML 1ML VIAL/SYRINGE SC SCH ×2 (01:00→09:00)
[2020-07-05] MEDS ORDERED: RAMELTEON 8 MG TAB (ROZEREM) PO PRN (01:15)
[2020-07-05] MEDS ORDERED: NICOTINE 21MG/24HR 1 EA TRANSDERMAL TD PRN (01:30)
[2020-07-05] MEDS ORDERED: PERCOCET 5MG/325MG TAB PO PRN (05:00)
[2020-07-05 05:29] LABS: BASO # 0.1 10^3/uL (0.0-0.2); BASO % 0.7 % (0.0-1.0); EOS # 0.1 10^3/uL (0.0-0.5); EOS % 1.4 % (0.0-3.0); HEMATOCRIT 49.2 % (36.0-47.0); HEMOGLOBIN 14.6 g/dl (12.0-15.5); LYMPH # 1.5 10^3/uL (1.5-5.0); LYMPH % 17.1 % (24.0-44.0); MEAN CORPUSCULAR HEMOGLOBIN 23.9 pg (27.0-33.0); MEAN CORPUSCULAR HGB CONC 29.7 g/dl (32.0-36.5); MEAN CORPUSCULAR VOLUME 80.5 fl (80.0-96.0); MONO % 12.2 % (0.0-5.0); NEUTROPHILS # 5.8 10^3/uL (1.5-8.5); NEUTROPHILS % 68.4 % (36.0-66.0); PLATELET COUNT, AUTOMATED 244 10^3/uL (150-450); RED BLOOD COUNT 6.11 10^6/uL (4.00-5.40); WHITE BLOOD COUNT 8.5 10^3/uL (4.0-10.0)
[2020-07-05 05:51] LABS: BLOOD UREA NITROGEN 30 MG/DL (7-18); CALCIUM LEVEL 8.6 MG/DL (8.8-10.2); CARBON DIOXIDE LEVEL 39 MEQ/L (21-32); CHLORIDE LEVEL 96 MEQ/L (98-107); CREATININE FOR GFR 0.84 MG/DL (0.55-1.30); GLOMERULAR FILTRATION RATE > 60.0 (>45); GLUCOSE, FASTING 102 MG/DL (70-100); MAGNESIUM LEVEL 1.6 MG/DL (1.8-2.4); SODIUM LEVEL 139 MEQ/L (136-145)
[2020-07-05 05:55] LABS: CHOLESTEROL RISK RATIO 3.656 (<5)
[2020-07-05] MEDS: MAG SULF 1GM/100ML (MAG RUN) 1 GM in IV 1 EA IV SCH ×2 (06:34→07:30)
[2020-07-05] MEDS: SYMBICORT 160/4.5MCG INHALER 6GM INH SCH (07:45)
[2020-07-05] MEDS: PRIMIDONE 50 MG TAB PO SCH (08:07)
[2020-07-05] MEDS: ALPRAZolam 0.25 MG TAB PO SCH (08:07)
[2020-07-05] MEDS ORDERED: GABA-1171 PO (08:18)
[2020-07-05] MEDS ORDERED: SPIRONOLACTONE 25 MG TAB PO SCH (09:00)
[2020-07-05] MEDS ORDERED: OMEPRAZOLE 20 MG CAP PO SCH (09:00)
[2020-07-05] MEDS ORDERED: rOPINIRole 1MG TAB PO SCH (09:00)
[2020-07-05] MEDS ORDERED: ATORVASTATIN 20 MG TAB PO SCH (09:00)
[2020-07-05] MEDS ORDERED: TORSEMIDE 100 MG TAB PO SCH (09:00)
[2020-07-05] MEDS ORDERED: PRED10TA2 PO (10:14)
[2020-07-05] MEDS ORDERED: VENTAER INH (10:15)
--- NOTE | 2020-07-05 11:11 | DS.PDOC ---
Discharge Summary General Date of Admission Jul 04, 2020 at 12:18 Date of Discharge 07/05/2020 Discharge Summary PROCEDURES PERFORMED DURING STAY: [None]. ADMITTING DIAGNOSES / DISCHARGE DIAGNOSES: s/p Acute toxic encephalopathy s/p Acute hypoxic respiratory failure - possibly 2/2 acute COPD exacerbation Lactic acidosis - likely 2/2 work of breathing PVD Raynauds Nicotine dependence RLS / Essential tremors / Depression / Anxiety Peripheral polyneuropathy GERD DVT prophylaxis COMPLICATIONS/CHIEF COMPLAINT: Confusion HISTORY OF PRESENT ILLNESS: Patient is a 64-year-old female with a PMHx of PVD (on Plavix), Raynauds, RLS, Essential tremors, Depression / Anxiety, Peripheral polyneur opathy who presented to the hospital after she had seen her primary care provider. Patient was seen by Dr. Montano and was noted to be acting abnormal. Was sent to the ER for further evaluation. Currently patient is oriented to person and place. However, not fully oriented to time. She is aware of who the president is. Patient denies any chest pain, shortness breath or palpitations. She reports a dry cough. Denies any nausea, vomiting, abdominal pain, diarrhea, constipation, or urinary discomfort. Patients son is present at the bedside who is providing additional details of the story. He is indicated that the patient has been taking non-prescribed medications from her neighbors; most recent of which she has been taking barbiturates. Patient reports that she is but lives with 2 adult roommates and 3 children, 2 of which are her grandchildren. Was admitted to the hospitalist service for further evaluation and treatment. HOSPITAL COURSE: s/p Acute toxic encephalopathy - Patient presented to the ER from PCP - Patient is currently fully oriented to person / place / time - Patient denies any suicidal ideation - Physicals without any focal neurologic deficits - CT head 07/04: Mild generalized volume loss and vascular calcification. Otherwise negative CT brain without contrast. - c/w Neuro checks - Patient follows with neurology as an outpatient; will have outpatient follow up within 7 days - Will discontinue Tizanidine - Patient has cleared home safety evaluation for discharge home; will have home PT services follow her on discharge - Patient lives with 2 adult rooms mates when at home s/p Acute hypoxic respiratory failure - possibly 2/2 acute COPD exacerbation - Saturating at 80% on room air on admission - Today patient was able ambulate on room air, maintained saturation between 88- 92% and remains asymptomatic - CXR 07/04: 1. Left ventricular configuration of the heart with some mild venous hypertension and improved interstitial edema compared to the previous study on 06/30/2020. No gross effusion, dense consolidation or definite mass. 2. Calcified aortic arch without gross aneurysm. 3. There is evidence for pulmonary artery hypertension which combined with the hyperinflated lung anton suggests COPD. - CTA chest 07/05: 1. Bilateral pulmonary hyperinflation, consistent with underlying COPD. Both lungs are well-aerated. There are, however, patchy areas of pulmonary air trapping with a mosaic pattern of alternating hypo- and hyperattenuating lung parenchyma in both upper and lower lungs. Pulmonary air trapping can be idiopathic, seen in normal asymptomatic individuals - or can be associated with abnormal retention of air in the lungs where it is difficult to exhale completely - as is seen in obstructive lung diseases such as acute bronchiolitis/acute reactive airways disease/acute asthma or chronic diseases such as COPD (emphysema and chronic bronchitis), chronic asthma, chronic pulmonary embolism, hypersensitivity pneumonitis and bronchiolitis obliterans. 2. Small calcified nodules are seen in the right lower lobe consistent with esther or chronic granulomatous lung disease. 3. No CT evidence of acute pulmonary embolism. 4. No CT evidence of acute thoracic aortic dissection, thoracic aneurysm or acute intramural thoracic aortic hematoma. 5. The heart size is normal. A small anterior pericardial effusion is present. Moderate coronary artery calcification is present. 6. The left lobe of the liver is enlarged suspicious for underlying cirrhosis. A small amount of perihepatic ascites is present in the right upper quadrant abdomen. 7. Mild chronic degenerative vertebral body endplate osteophytic disease is seen in the mid to lower thoracic spine. - c/w inhaled therapy; patient reports that she has not been compliant with her inhaled therapy as an outpatient - advised improtance of compliance - Started Prednisone; will c/w taper on discharge; provided albuterol inhaler on discharge - Will have outpatient follow up with PCP within 7 days Lactic acidosis - likely 2/2 work of breathing - No evidence of infection - Afebrile / hemodynamically stable - No leukocytosis - c/w inhaled therapy (see above) - No antibiotics indicated at this time PVD - c/w Atorvastatin and Plavix Raynauds - c/w Diltiazem Nicotine dependence - Advised smoking cessation - Patient is adamant about having a cigarette and wants to leave today for sure; patient's son is present at the bedside RLS / Essential tremors / Depression / Anxiety - c/w Primidone and Ropinirole Peripheral polyneuropathy - c/w adjusted dose of Gabapentin on discharge GERD - c/w Omeprazole DVT prophylaxis - c/w heparin DISCHARGE MEDICATIONS: Please see below. ALLERGIES: Please see below. PHYSICAL EXAMINATION ON DISCHARGE: - Vitals See below - General: Lying in bed, No acute distress, Awake / Alert; Oriented to person / day+month / not to place / aware of president - HEENT: NC, AT, PERRLA - CVS: +S1S2 - Lungs: Fair air entry bilaterally, No appreciable wheezing / rales / rhonchi - Abdomen: Soft, Non-distended, Non-tender - Extremities: No lower extremity edema, No calf tenderness - Neuro: No focal motor or sensory deficit - Skin: No visible rashes LABORATORY DATA: Please see below. ACTIVITY: [As tolerated]. DISCHARGE PLAN: Follow up with PCP and Neurology within 7 days Remain compliant with treatment plan and medications Return to the ER if you experience any problems DISPOSITION: Home with services DISCHARGE CONDITION: [Stable]. TIME SPENT ON DISCHARGE: 25 minutes Vital Signs/I&Os Vital Signs Date Time Temp Pulse Resp B/P (MAP) Pulse Ox O2 Delivery O2 Flow Rate FiO2 07/05/20 08:07 76 136/60 07/05/20 08:00 97.5 20 92 Nasal Cannula 2.0 07/04/20 15:55 I&O- Last 24 Hours up to 6 AM 07/05/20 06:00 Intake Total 1110 ml Output Total 1600 ml Balance -490 ml Laboratory Data Labs 24H Laboratory Tests 2 07/04/20 13:37: Urine Color STRAW, Urine Appearance CLEAR, Urine pH 7.0, Urine Specific [place] 1.004, Urine Protein NEGATIVE, Urine Glucose (UA) NEGATIVE, Urine Ketones NEGATIVE, Urine Blood NEGATIVE, Urine Nitrite NEGATIVE, Urine Bilirubin NEGATIVE, Urine Urobilinogen 0.2, Urine Leukocyte Esterase NEGATIVE, Urine WBC (Auto) 0, Urine RBC (Auto) 0, Urine Hyaline Casts (Auto) 0, Urine Bacteria (Auto) 1+H, Urine Squamous Epithelial Cells 1, Urine Sperm (Auto) , Urine Opiates Screen NEGATIVE, Urine Methadone Screen NEGATIVE, Urine Barbiturates Screen NEGATIVE, Urine Phencyclidine Screen NEGATIVE, Urine Amphetamines Screen NEGATIVE, Urine Benzodiazepines Screen NEGATIVE, Urine Cocaine Metabolite Screen NEGATIVE, Urine Cannabinoids Screen NEGATIVE 07/04/20 14:12: Immature Granulocyte % (Auto) 0.3, Neutrophils (%) (Auto) 70.3H, Lymphocytes (%) (Auto) 16.0L, Monocytes (%) (Auto) 11.4H, Eosinophils (%) (Auto) 1.5, Basophils (%) (Auto) 0.5, Neutrophils # (Auto) 5.5, Lymphocytes # (Auto) 1.3L, Monocytes # (Auto) 0.9H, Eosinophils # (Auto) 0.1, Basophils # (Auto) 0.0, Nucleated Red Blood Cells % (auto) 0.0, Total Bilirubin 0.7, Direct Bilirubin 0.3H, Aspartate Amino Transf (AST/SGOT) 34, Alanine Aminotransferase (ALT/SGPT) 27, Alkaline Phosphatase 142H, Ammonia 19, Total Creatine Kinase 172, Creatine Kinase MB 5.5H, Creatine Kinase MB Relative Index 3.20, Troponin I 0.04, VD-Rxt-B-Type Natriuretic Peptide 8037H, Total Protein 7.0, Albumin 3.3, Albumin/Globulin Ratio 0.9L, Thyroid Stimulating Hormone (TSH) 3.500, Salicylates Level 2.9L, Acetaminophen Level < 2.0L, Ethyl Alcohol Level < 0.003 07/04/20 14:26: Bedside Glucose (Misc Panel) 123H 07/04/20 14:27: POC Glucose (Misc Panel) 120H, POC Sodium (Misc Panel) 139, POC Potassium (Misc Panel) 3.7, POC Chloride (Misc Panel) 92L, POC Total CO2 (Misc Panel) 40.0H, POC Blood Urea Nitrogen (Misc Panel 37H, POC Ionized Calcium (Misc Panel) 3.8L, POC Creatinine (Misc Panel) 0.8, POC Hematocrit (Misc Panel) 51.0 07/04/20 14:31: POC Lactate (Misc Panel) 2.21*H 07/04/20 15:58: POC pH (Misc Panel) 7.384, POC Base Excess (Misc Panel) 15.0H, POC Saturated Percent O2 (Misc) 63L, POC pO2 (Misc Panel) 35.0*L, POC pCO2 (Misc Panel) 67.3*H, POC HCO3 (Misc Panel) 40.1H, POC Total CO2 (Misc Panel) 42.0H 07/04/20 16:08: POC pH (Misc Panel) 7.403, POC Base Excess (Misc Panel) 14.0H, POC Saturated Percent O2 (Misc) 70L, POC pO2 (Misc Panel) 38.0*L, POC pCO2 (Misc Panel) 62.4*H, POC HCO3 (Misc Panel) 38.9H, POC Total CO2 (Misc Panel) 41.0H 07/04/20 18:48: Lactic Acid Followup at 4 Hours 2.4*H 07/05/20 05:14: Triglycerides Level 83, Total Cholesterol 117, LDL Cholesterol 68, Non-HDL Cholesterol (LDL + VLDL) 85, Total HDL Cholesterol 32L, Cholesterol/HDL Ratio 3.656 07/05/20 05:15: Immature Granulocyte % (Auto) 0.2, Neutrophils (%) (Auto) 68.4H, Lymphocytes (%) (Auto) 17.1L, Monocytes (%) (Auto) 12.2H, Eosinophils (%) (Auto) 1.4, Basophils (%) (Auto) 0.7, Neutrophils # (Auto) 5.8, Lymphocytes # (Auto) 1.5, Monocytes # (Auto) 1.0H, Eosinophils # (Auto) 0.1, Basophils # (Auto) 0.1, Nucleated Red Blood Cells % (auto) 0.0, Anion Gap 4L, Glomerular Filtration Rate > 60.0, Lactic Acid Level 2.2*H, Calcium Level 8.6L, Magnesium Level 1.6L 07/05/20 09:46: Lactic Acid Followup at 4 Hours 3.1*H CBC/BMP Laboratory Tests 07/04/20 14:12 07/05/20 05:15 FSBS Laboratory Tests Test 07/04/20 14:26 Range/Units Bedside Glucose (Misc Panel) 123 80-115 MG/DL Microbiology Microbiology 07/04/20 Blood Culture, Received Pending 07/04/20 Blood Culture, Received Pending Discharge Medications Scheduled Alprazolam (Xanax) 0.25 Mg Tab, 0.25 MG PO BID, (Reported) Atorvastatin Calcium (Atorvastatin Calcium) 40 Mg Tab, 40 MG PO DAILY, (Reported) Budesonide/Formoterol (Symbicort 160-4.5 Mcg Inhaler) 60 Puff/Inhaler Aers, 2 PUFF INH BID, (Reported) Diltiazem HCl (Cardizem LA) 120 Mg Tab.er.24h, 120 MG PO DAILY, (Reported) Ergocalciferol (Vitamin D2) (Vitamin D2) 50,000 Units Cap, 50,000 UNITS PO QWEEK, (Reported) FRIDAY Gabapentin (Gabapentin) 100 Mg Capsule, 2 CAP PO TID Omeprazole (Omeprazole) 20 Mg Capsule.dr, 20 MG PO DAILY, (Reported) Oxybutynin Chloride (Oxybutynin Chloride ER) 10 Mg Tab.er.24, 10 MG PO DAILY, (Reported) Prednisone (Prednisone) 10 Mg Tablet, 10 MG PO TAPER Take 4 tabs daily x 3 days, then 3 tabs daily x 3 days, then 2 tabs daily x 3 days, then 1 tab daily x 3 days and stop Primidone (Mysoline) 50 Mg Tab, 100 MG PO BID, (Reported) Ropinirole HCl (Ropinirole HCl) 1 Mg Tablet, 1 MG PO QAM, (Reported) Ropinirole HCl (Ropinirole HCl) 1 Mg Tablet, 2 MG PO QHS, (Reported) Spironolactone (Spironolactone) 25 Mg Tablet, 25 MG PO DAILY, (Reported) Tiotropium [place] (Spiriva Respimat) 4 Gm Mist.inhal, 2 PUFFS INH DAILY, (Reported) Torsemide (Torsemide) 100 Mg Tablet, 100 MG PO DAILY, (Reported) Scheduled PRN Albuterol Sulfate (Ventolin Hfa) 18 Gm Hfa.aer.ad, 2 PUFF INH Q4-6HP PRN for wheezing Oxycodone HCl/Acetaminophen (Oxycodone-Acetaminophen 5-325) 1 Each Tablet, 1 TAB PO BID PRN for PAIN, (Reported) Allergies Coded Allergies: Sulfa (Sulfonamide Antibiotics) (Verified Allergy, Unknown, 07/04/20) KATIE VERMA MD Jul 05, 2020 11:10
--- NOTE | 2020-07-05 11:38 | ECGEPIP ---
[facility] - ED Test Date: 2020-07-04 Pat Name: NICK SANDY Department: Room: [place] [address] Gender: Female Virtual Recruiter: THEODORE : 1955 Requested By: Valentin Chin Order Number: [id number] Reading MD: Valentin Cortes Measurements Intervals [place] Rate: 84 P: 91 OR: 76 QRS: 112 QRSD: 117 T: -88 QT: 414 QTc: 490 Interpretive Statements SINUS RHYTHM WITH SHORT OR INTERVAL INCOMPLETE RIGHT BUNDLE BRANCH BLOCK RIGHT VENTRICULAR HYPERTROPHY ANTEROSEPTAL MYOCARDIAL INFARCTION, OF INDETERMINATE AGE MODERATE T-WAVE ABNORMALITY, CONSIDER LATERAL ISCHEMIA MODERATE T-WAVE ABNORMALITY, CONSIDER INFERIOR ISCHEMIA SIMILAR TO 06/30/20 Electronically Signed on 07-05-2020 11:37:45 EST by Valentin Cortes
== END 2020-07-05 11:09 | disposition home health service (06) ==
LOC: M ED 12:17 → M ED INP 12:18 → ENRESERV 17:05 → M PCU 18:12
PROVIDERS: ADMIT Internal Medicine; ATTEND Internal Medicine
DX: G92 Toxic encephalopathy (principal); J96.21 Acute and chronic respiratory failure with hypoxia; J44.1 Chronic obstructive pulmonary disease with (acute) exacerbation; E87.2 Acidosis; I73.9 Peripheral vascular disease, unspecified; I73.00 Raynaud's syndrome without gangrene; F17.218 Nicotine dependence, cigarettes, with other nicotine-induced disorders; G25.81 Restless legs syndrome; G25.0 Essential tremor; F32.9 Major depressive disorder, single episode, unspecified; F41.9 Anxiety disorder, unspecified; K21.9 Gastro-esophageal reflux disease without esophagitis; Z79.02 Long term (current) use of antithrombotics/antiplatelets; Z79.899 Other long term (current) drug therapy; Z79.52 Long term (current) use of systemic steroids; Z88.2 Allergy status to sulfonamides; E78.00 Pure hypercholesterolemia, unspecified
CPT/HCPCS: 36415; 36600; 51798; 70450; 71045; 71275; 80047; 80048; 80061; 80076; 80307; 81001; 82140; 82550; 82553; 82803; 83605; 83735; 83880; 84443; 84484; 85025; 87040; 92610; 93005; 93041; 94640; 96361; 96372; 96374; 97161; 97165; 99285; G0378; G0463; G0480; J1940; J2060; J3475; Q9967

== ENCOUNTER 2020-07-11 08:51 | Inpatient (IN) | payer MEDICARE, OTHER ==
[2020-07-11] VITALS (7 sets, daily range): BP systolic 124–134; BP diastolic 69–77
[~2020-07-11 08:51] MED LIST changes: +CARD1TAB5 PO; +GABA-1171 PO; +GABA-843 PO; +OMEP1CAP73 PO; +OXYB10TA23 PO; +OXYC1TAB23 PO; +PRED10TA2 PO; +ROPI1TAB3 PO; +SPIR-10 PO; +SPIR12.9 INH; +TIZA4CAP PO; +TORS100T PO; +VENTAER INH; +VITA50005 PO
[2020-07-11 09:48] LABS: HEMATOCRIT 49.5 % (36.0-47.0); HEMOGLOBIN 15.2 g/dl (12.0-15.5); MEAN CORPUSCULAR HEMOGLOBIN 23.8 pg (27.0-33.0); MEAN CORPUSCULAR HGB CONC 30.7 g/dl (32.0-36.5); MEAN CORPUSCULAR VOLUME 77.6 fl (80.0-96.0); PLATELET COUNT, AUTOMATED 334 10^3/uL (150-450); RED BLOOD COUNT 6.38 10^6/uL (4.00-5.40)
[2020-07-11 10:02] LABS: ACETAMINOPHEN LEVEL < 2.0 UG/ML (10.0-30.0); ALBUMIN 3.6 GM/DL (3.2-5.2); ALT/SGPT 40 U/L (12-78); BILIRUBIN,DIRECT 0.3 MG/DL (0.0-0.2); BILIRUBIN,TOTAL 0.6 MG/DL (0.2-1.0); BLOOD UREA NITROGEN 43 MG/DL (7-18); CALCIUM LEVEL 9.1 MG/DL (8.8-10.2); CARBON DIOXIDE LEVEL 35 MEQ/L (21-32); CHLORIDE LEVEL 92 MEQ/L (98-107); CREATININE FOR GFR 1.12 MG/DL (0.55-1.30); ETHYL ALCOHOL (ETHANOL) < 0.003 % (0.000-0.010); GLOMERULAR FILTRATION RATE 52.3 (>45); GLUCOSE, FASTING 140 MG/DL (70-100); SALICYLATE LEVEL 2.3 MG/DL (5.0-30.0); SODIUM LEVEL 133 MEQ/L (136-145); TOTAL PROTEIN 7.2 GM/DL (6.4-8.2)
[2020-07-11] MEDS ORDERED: NS 1,000 ML IV SCH (10:30)
[2020-07-11 10:43] LABS: AMPHETAMINES LEVEL URINE NEGATIVE (NEGATIVE); BARBITURATES URINE POSITIVE (NEGATIVE); BENZODIAZEPINES URINE NEGATIVE (NEGATIVE); CANNABINOIDS URINE NEGATIVE (NEGATIVE); COCAINE METABOLITE URINE NEGATIVE (NEGATIVE); METHADONE URINE NEGATIVE (NEGATIVE); OPIATES URINE NEGATIVE (NEGATIVE); PHENCYCLIDINE URINE NEGATIVE (NEGATIVE)
[2020-07-11] MEDS ORDERED: VENTAER INH (14:09)
[2020-07-11] MEDS ORDERED: GABA-1171 PO (14:09)
[2020-07-11] MEDS ORDERED: MED REC COMMENT (14:10)
[2020-07-11] MEDS ORDERED: MOM 30ML SUSPENSION UDC PO PRN (15:00)
[2020-07-11] MEDS ORDERED: ALBUTEROL 90 MCG/ACT 8GM HFA INHALER INH PRN (15:00)
[2020-07-11] MEDS ORDERED: IBUPROFEN 400 MG TAB PO PRN (15:00)
[2020-07-11] MEDS ORDERED: MAALOX 30 ML SUSP *UDC PO PRN (15:00)
[2020-07-11] MEDS ORDERED: RAMELTEON 8 MG TAB (ROZEREM) PO PRN (15:00)
[2020-07-11] MEDS: GABAPENTIN 100 MG CAP PO SCH ×2 (16:00→20:41)
--- NOTE | 2020-07-11 16:35 | ECGEPIP ---
[facility] - ED Test Date: 2020-07-11 Pat Name: GENNY SANDY Department: Room: - Gender: Female Batch Unloader: NADIR : 1955 Requested By: Genny Katz Order Number: [id number] Reading MD: Lamine Eddy Measurements Intervals [place] Rate: 87 P: 107 [place]: 88 QRS: 128 QRSD: 101 T: -51 QT: 397 QTc: 479 Interpretive Statements SINUS RHYTHM WITH SHORT [place] INTERVAL INCOMPLETE RIGHT BUNDLE BRANCH BLOCK RIGHT VENTRICULAR HYPERTROPHY AND ST-T CHANGE ANTEROSEPTAL MYOCARDIAL INFARCTION, OF INDETERMINATE AGE Similar to tracing done 07-04-20 Electronically Signed on 07-11-2020 16:35:06 EST by Lamine Eddy
[2020-07-11] MEDS ORDERED: LORazepam 2 MG/ML VIAL IM STA (18:18)
--- NOTE | 2020-07-11 19:47 | IPNPDOC ---
Date Seen The patient was seen on 07/11/20. Progress Note SUBJECTIVE: Hospitalist was called to assess the patient medically after a CODE 25. Pt was agitated, combative, and currently in a 4point restraint. She c/o cough productive of thick white-yellow sputum without fever, chills, or sob. c/o increased urinary frequency since she was started on a diuretic by her first beater, Dr. Nassar. Denies dysuria, urgency, hematuria, flank pain, or cloudy malodorous urine. denies PND, orthopnea, wt gain, but admits to chronic LE edema and neuropathy. OBJECTIVE PHYSICAL EXAMINATION: VITAL SIGNS: Please see below. GENERAL: 4point restraint. agitated. HEENT:dry chapped lips no JVD or cervical LAD. no thyromegaly. s/p b/l CEA scars well-healed CARDIOVASCULAR:RRR no m/r/g no JVD RESPIRATORY: diminished. no rhonchi ABDOMINAL: +BS soft NT ND EXTREMITIES:+ edema 1+ b/l SKIN: dry skin, pink in color LABORATORY DATA, IMAGING STUDIES, MICROBIOLOGY: Please see below. ASSESSMENT AND PLAN: 64-year-old female with a PMHx signifant for PVD (on Plavix), Raynauds, RLS, Essenial tremors, Depression / Anxiety, Peripheral polyneuropathy, Bilateral carotid endarterectomy (2016) admitted to [facility] s/p CODE 25, being assessed for any acute medical needs. PROBLEMS: s/p CODE 25 Chronic Bronchitis PLAN: Patient's medical needs have been assessed and attended to. check sputum c& and u/a with reflex c&s. no acute indication for steroids or antibiotics. resume home inhalers and diuretics. Hospitalist will sign off. Pls reconsult for other acute medical issues. VS, I&O, 24H, Fishbone Vital Signs/I&O Vital Signs Date Time Temp Pulse Resp B/P (MAP) Pulse Ox O2 Delivery O2 Flow Rate FiO2 07/11/20 19:15 16 07/11/20 19:00 Room Air 07/11/20 18:54 98.9 82 134/77 (96) 93 Laboratory Data 24H LABS Laboratory Tests 2 07/11/20 09:00: Nucleated Red Blood Cells % (auto) 0.0, Anion Gap 6L, Glomerular Filtration Rate 52.3, Calcium Level 9.1, Total Bilirubin 0.6, Direct Bilirubin 0.3H, Aspartate Amino Transf (AST/SGOT) 22, Alanine Aminotransferase (ALT/SGPT) 40, Alkaline Phosphatase 146H, Total Protein 7.2, Albumin 3.6, Albumin/Globulin Ratio 1.0L, Thyroid Stimulating Hormone (TSH) 3.940H, Salicylates Level 2.3L, Acetaminophen Level < 2.0L, Ethyl Alcohol Level < 0.003 07/11/20 09:24: Coronavirus (COVID-19)(PCR) NEGATIVE 07/11/20 09:49: Urine Color STRAW, Urine Appearance CLEAR, Urine pH 8.0, Urine Specific [place] 1.004, Urine Protein NEGATIVE, Urine Glucose (UA) NEGATIVE, Urine Ketones NEGATIVE, Urine Blood NEGATIVE, Urine Nitrite NEGATIVE, Urine Bilirubin NEGATIVE, Urine Urobilinogen 0.2, Urine Leukocyte Esterase NEGATIVE, Urine WBC (Auto) 1, Urine RBC (Auto) 0, Urine Hyaline Casts (Auto) 0, Urine Bacteria (Auto) 1+H, Urine Squamous Epithelial Cells 1, Urine Sperm (Auto) , Urine Opiates Screen NEGATIVE, Urine Methadone Screen NEGATIVE, Urine Barbiturates Screen POSITIVEH, Urine Phencyclidine Screen NEGATIVE, Urine Amphetamines Screen NEGATIVE, Urine Benzodiazepines Screen NEGATIVE, Urine Cocaine Metabolite Screen NEGATIVE, Urine Cannabinoids Screen NEGATIVE CBC/BMP Laboratory Tests 07/11/20 09:00 KAREL GOLDSTEIN MD Jul 11, 2020 19:47
[2020-07-11] MEDS ORDERED: ACETAMINOPHEN TAB 650MG DOSE (2X325MG) PO PRN (20:00)
[2020-07-11] MEDS ORDERED: LEVALBUTEROL 1.25 MG/0.5 ML CONCENTRATE NEB INH PRN (20:00)
[2020-07-11] MEDS: SYMBICORT 160/4.5MCG INHALER 6GM INH SCH (20:21)
[2020-07-11] MEDS: rOPINIRole 2MG TAB PO SCH (20:41)
[2020-07-11] MEDS: PRIMIDONE 50 MG TAB PO SCH (20:41)
[2020-07-11] MEDS: ALPRAZolam 0.25 MG TAB PO SCH (20:41)
[2020-07-11] MEDS: PERCOCET 5MG/325MG TAB PO PRN (23:14)
[2020-07-12] MEDS: SYMBICORT 160/4.5MCG INHALER 6GM INH SCH ×2 (07:41→21:06)
[2020-07-12] MEDS: ATORVASTATIN 20 MG TAB PO SCH (08:31)
[2020-07-12] MEDS: oxyBUTYnin *DITROPAN XL* 5 MG TABCR PO SCH (08:32)
[2020-07-12] MEDS: OMEPRAZOLE 20 MG CAP PO SCH (08:32)
[2020-07-12] MEDS: SPIRONOLACTONE 25 MG TAB PO SCH (08:32)
[2020-07-12] MEDS: ALPRAZolam 0.25 MG TAB PO SCH ×2 (08:32→08:54)
[2020-07-12] MEDS: GABAPENTIN 100 MG CAP PO SCH ×3 (08:32→21:12)
[2020-07-12] MEDS: PRIMIDONE 50 MG TAB PO SCH ×2 (08:32→21:12)
[2020-07-12] MEDS: rOPINIRole 1MG TAB PO SCH (08:32)
[2020-07-12] MEDS: TORSEMIDE 100 MG TAB PO SCH (08:32)
[2020-07-12 09:10] VITALS: BP 148/79
--- NOTE | 2020-07-12 10:06 | REP ---
INDICATION: cough. COMPARISON: July 04, 2020.. TECHNIQUE: Sitting AP portable chest x-ray. FINDINGS: Lungs are somewhat hyperinflated but clear. Pleural angles are sharp. Heart is not enlarged. Aorta is slightly tortuous and calcific. The pulmonary vasculature is not increased. There is a granulomatous calcification in the right lateral lung base unchanged. No focal infiltrate. IMPRESSION: Hyperinflation. No acute cardiopulmonary disease. No infiltrate seen. <Electronically signed by Archie Blackburn > 07/12/20 1007
[2020-07-12 10:10] LABS: BLOOD UREA NITROGEN 41 MG/DL (7-18); CALCIUM LEVEL 9.9 MG/DL (8.8-10.2); CARBON DIOXIDE LEVEL 35 MEQ/L (21-32); CHLORIDE LEVEL 90 MEQ/L (98-107); CREATININE FOR GFR 0.93 MG/DL (0.55-1.30); FREE THYROXINE INDEX 3.5 % (1.3-4.8); GLOMERULAR FILTRATION RATE > 60.0 (>45); GLUCOSE, FASTING 110 MG/DL (70-100); NT-PRO BNP 2550 PG/ML (<125); POTASSIUM SERUM 5.1 MEQ/L (3.5-5.1); SODIUM LEVEL 133 MEQ/L (136-145); T UPTAKE 35 % (30-39); THYROXINE (T4) 9.9 UG/DL (4.5-12.0)
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
[2020-07-12] MEDS: haloperidoL 0.5 MG TAB PO SCH ×2 (11:50→21:12)
[2020-07-12] MEDS: PERCOCET 5MG/325MG TAB PO PRN ×2 (12:01→23:43)
[2020-07-12 12:03] VITALS: BP 121/76
[2020-07-12 12:43] LABS: VENOUS BASE EXCESS 8.2 (-2.0-2.0); VENOUS HCO3 34.4 MEQ/L (23.0-27.0); VENOUS O2 SATURATION 77.2 % (60.0-80.0); VENOUS PARTIAL PRESSURE CO2 52.7 mmHg (38.0-50.0); VENOUS PH 7.433 UNITS (7.330-7.430); VENOUS STANDARD HCO3 31.3 MEQ/L
[2020-07-12 16:49] VITALS: BP 120/64
--- NOTE | 2020-07-12 18:19 | HPEPDOC ---
General Date of Admission Jul 11, 2020 at 15:00 Date of Service: Jul 12, 2020 Chief Complaint The patient is a 64-year-old female admitted with a reason for visit of Unspecified Psychosis. Source: Patient, Old records Exam Limitations: Clinical conditions Timing/Duration: Day(s) Severity: Moderate History of Present Illness Patient is a 64-year-old female with a PMHx of PVD (on Plavix), Raynauds, RLS, Essenial tremors, Depression / Anxiety, Peripheral polyneuropathy who presented to the hospital with metabolic encephalopathy. Patient was found to have acute psychosis she was transferred from general floor to [facility] for further evaluation. [facility] called to the hospital service, because patient developed acute hypoxemic respiratory failure. In the morning pulse saturation dropped to low 80s. When I saw patient her fingers were bluish, patient had dyspnea. Patient was on room air however she stated that she needed to be on the 2 L of oxygen at baseline. She stated that cardiovascular rn Dr Zazueta placed her on the chronic oxygen. Also patient stated that she had small unhealed wound on the right martinez. She complains of bilateral distal legs pain. Patient denies fever, chills, nausea, vomiting, diarrhea or dysuria Home Medications Scheduled Alprazolam (Xanax) 0.25 Mg Tab, 0.25 MG PO BID, (Reported) Atorvastatin Calcium (Atorvastatin Calcium) 40 Mg Tab, 40 MG PO DAILY, (Reported) Budesonide/Formoterol (Symbicort 160-4.5 Mcg Inhaler) 60 Puff/Inhaler Aers, 2 PUFF INH BID, (Reported) Diltiazem HCl (Cardizem LA) 120 Mg Tab.er.24h, 120 MG PO DAILY, (Reported) Ergocalciferol (Vitamin D2) (Vitamin D2) 50,000 Units Cap, 50,000 UNITS PO QWEEK, (Reported) FRIDAY Gabapentin (Gabapentin) 100 Mg Capsule, 200 MG PO TID, (Reported) Omeprazole (Omeprazole) 20 Mg Capsule.dr, 20 MG PO DAILY, (Reported) Oxybutynin Chloride (Oxybutynin Chloride ER) 10 Mg Tab.er.24, 10 MG PO DAILY, (Reported) Prednisone (Prednisone) 10 Mg Tablet, 10 MG PO TAPER Take 4 tabs daily x 3 days, then 3 tabs daily x 3 days, then 2 tabs daily x 3 days, then 1 tab daily x 3 days and stop Primidone (Mysoline) 50 Mg Tab, 100 MG PO BID, (Reported) Ropinirole HCl (Ropinirole HCl) 1 Mg Tablet, 1 MG PO QAM, (Reported) Ropinirole HCl (Ropinirole HCl) 1 Mg Tablet, 2 MG PO QHS, (Reported) Spironolactone (Spironolactone) 25 Mg Tablet, 25 MG PO DAILY, (Reported) Tiotropium [place] (Spiriva Respimat) 4 Gm Mist.inhal, 2 PUFFS INH DAILY, (Reported) Torsemide (Torsemide) 100 Mg Tablet, 100 MG PO DAILY, (Reported) Scheduled PRN Albuterol Sulfate (Ventolin Hfa) 18 Gm Hfa.aer.ad, 2 PUFF INH Q4H PRN for SOB/WHEEZING, (Reported) Oxycodone HCl/Acetaminophen (Oxycodone-Acetaminophen 5-325) 1 Each Tablet, 1 TAB PO BID PRN for PAIN, (Reported) Miscellaneous Medications [Med Rec Comment] , (Reported) LIST OBTAINED FROM LAST ADMISSION AND PHARMACY Allergies Coded Allergies: Sulfa (Sulfonamide Antibiotics) (Verified Allergy, Unknown, 07/04/20) Past Medical History Medical History PVD (on Plavix), Raynauds, RLS, Essenial tremors, Depression / Anxiety, Peripheral polyneuropathy Surgical History Bilateral carotid endarterectomy (2016, 2016) Tonsillectomy Colonoscopy ; 2018, 2013, 2015 Cardiac cath Family History - Father with a history of colon cancer Social History * Smoker: current smoker Alcohol: Denies Drugs: marijuana A-FIB/CHADSVASC A-FIB History Current/History of A-Fib/PAF?: No Current PO Anticoag Therapy: No Review of Systems Constitutional: Denies: Chills Eyes: Denies: Pain ENT: Denies: Head Aches Skin: Denies: Rash, Lesions Pulmonary: Reports: Dyspnea; Denies: Cough Cardiovascular: Denies: Chest Pain, Palpitations Gastrointestinal: Denies: Vomiting Genitourinary: Denies: Dysuria Hematologic: Denies: Bruising Endocrine: Denies: Polydipsia Musculoskeletal: Reports: Leg Pain Neurological: Denies: Weakness Psych: Reports: Anxiety Physical Examination General Exam: Positive: Alert, Cooperative Eye Exam: Positive: PERRLA ENT Exam: Positive: Atraumatic Neck Exam: Positive: Supple; Negative: JVD Chest Exam: Positive: Diminished Heart Exam: Positive: Rate Normal Telemetry: Positive: No significant arrhythmia Abdomen Exam: Positive: Normal bowel sounds Extremity Exam: Positive: Cyanosis, Other (3X4 cm stage 2 wound of the right martinez with minimal pus); Negative: Clubbing Skin Exam: Negative: Pruritus Neuro Exam: Positive: Normal Gait Psych Exam: Positive: Anxiety Vital Signs Vital Signs Date Time Temp Pulse Resp B/P (MAP) Pulse Ox O2 Delivery O2 Flow Rate FiO2 07/12/20 16:49 98.9 87 18 120/64 (82) 93 Nasal Cannula 3.0 Laboratory Data Labs 24H Laboratory Tests 2 07/12/20 09:02: Anion Gap 8, Glomerular Filtration Rate > 60.0, Calcium Level 9.9, HJ-Wwb-[id number]-Type Natriuretic Peptide 2550H, Thyroid Stimulating Hormone (TSH) 4.280H, Free Thyroxine Index 3.5, Thyroxine (T4) 9.9, Triiodothyronine (T3) Uptake 35 07/12/20 12:29: Blood Gas Bicarbonate Standard 31.3, Venous Blood pH 7.433H, Venous Blood Partial Pressure CO2 52.7H, Venous Blood Partial Pressure O2 42.0, Venous Blood Total Carbon Dioxide 36.0H, Venous Blood HCO3 34.4H, Venous Blood Oxygen Saturation 77.2, Venous Blood Base Excess 8.2H CBC/BMP Laboratory Tests 07/12/20 09:02 Assessment/Plan Patient is a 64-year-old female with a PMHx of PVD (on Plavix), Raynauds, RLS, Essenial tremors, Depression / Anxiety, Peripheral polyneuropathy who presented to the hospital with metabolic encephalopathy. Patient was found to have acute psychosis she was transferred from general floor to [facility] for further evaluation. [facility] called to the hospital service, because patient developed acute hypoxemic respiratory failure. In the morning pulse saturation dropped to low 80s. When I saw patient her fingers were bluish, patient had dyspnea. Patient was on room air however she stated that she needed to be on the 2 L of oxygen at baseline. She stated that cardiovascular rn Dr Zazueta placed her on the chronic oxygen. Also patient stated that she had small unhealed wound on the right martinez. She complains of bilateral distal legs pain. Patient denies fever, chills, nausea, vomiting, diarrhea or dysuria Problems (1) Acute hypoxemic respiratory failure Status: Acute Problem Text: Patient stated that she supposed to be on 2 L of oxygen at the baseline. I did not find in previous records information about it Please call to Dr. Zazueta office to obtain information about supplemental oxygen CTA from 07/04/20 showed Bilateral pulmonary hyperinflation, consistent with underlying COPD. Both lungs are well-aerated. There are, however, patchy areas of pulmonary air trapping with a mosaic pattern of alternating hypo- and hyperattenuating lung parenchyma in both upper and lower lungs Continue oxygen supplementation, keep oxygen sat 89-91 % Continue inhalers DuoNeb added Will repeat chest x-ray (2) COPD (chronic obstructive pulmonary disease) Status: Chronic Problem Text: See above (3) Acute diastolic CHF (congestive heart failure) Status: Acute Problem Text: BNP significantly elevated to 2500 +JVD Continue torsemide I's and O's Cardiac diet Echo (4) Psychosis Status: Acute Problem Text: defer treatment to psych team (5) Cellulitis Status: Acute Problem Text: 3X4 cm stage 2 wound with minimal pus Doxycycline by mouth 100 mg twice a day for 10 days (6) PVD (peripheral vascular disease) Status: Chronic Problem Text: Continue Plavix and statin (7) Peripheral neuropathy Status: Chronic Problem Text: Continue gabapentin Plan / VTE VTE Prophylaxis Ordered?: No VTE Exclusion Mechanical Proph: Low Risk for VTE ARIEL SOLIS DO Jul 12, 2020 18:19
[2020-07-12] MEDS: IPRATROPIUM 0.5MG/ALBUTEROL 2.5MG INH SOL UD 3ML (DUONEB) NEB SCH (18:58)
[2020-07-12] MEDS ORDERED: haloperidoL 0.5 MG TAB PO SCH (21:00)
[2020-07-12] MEDS: rOPINIRole 2MG TAB PO SCH (21:12)
[2020-07-12] MEDS: DOXYCYCLINE HYCLATE 100MG TABLET PO SCH (21:12)
[2020-07-12] MEDS: ACETAMINOPHEN TAB 650MG DOSE (2X325MG) PO PRN (21:13)
[2020-07-13] MEDS: IPRATROPIUM 0.5MG/ALBUTEROL 2.5MG INH SOL UD 3ML (DUONEB) NEB SCH ×4 (02:00→20:00)
[2020-07-13] MEDS: ACETAMINOPHEN TAB 650MG DOSE (2X325MG) PO PRN ×2 (03:31→15:03)
[2020-07-13 06:57] VITALS: BP 102/63
[2020-07-13] MEDS: OMEPRAZOLE 20 MG CAP PO SCH (08:15)
[2020-07-13] MEDS: ATORVASTATIN 20 MG TAB PO SCH (08:16)
[2020-07-13] MEDS: GABAPENTIN 100 MG CAP PO SCH ×3 (08:17→20:12)
[2020-07-13] MEDS: CLOPIDOGREL 75 MG TAB PO SCH (08:17)
[2020-07-13] MEDS: PRIMIDONE 50 MG TAB PO SCH ×2 (08:17→20:13)
[2020-07-13] MEDS: TORSEMIDE 100 MG TAB PO SCH (08:18)
[2020-07-13] MEDS: rOPINIRole 1MG TAB PO SCH (08:18)
[2020-07-13] MEDS: haloperidoL 0.5 MG TAB PO SCH ×2 (08:18→20:12)
[2020-07-13] MEDS: DOXYCYCLINE HYCLATE 100MG TABLET PO SCH ×2 (08:18→20:11)
[2020-07-13] MEDS: oxyBUTYnin *DITROPAN XL* 5 MG TABCR PO SCH (08:18)
[2020-07-13] MEDS: SYMBICORT 160/4.5MCG INHALER 6GM INH SCH ×2 (08:19→20:10)
[2020-07-13] MEDS: SPIRONOLACTONE 25 MG TAB PO SCH (08:19)
[2020-07-13] MEDS: PERCOCET 5MG/325MG TAB PO PRN ×2 (11:12→20:19)
--- NOTE | 2020-07-13 11:15 | MHIPNPDOC ---
[facility] Progress Note Progress Note DATE OF SERVICE: 07/13/20 Subjective HPI: Genny presents today for an evaluation. The patient was met with today. She reports that she is feeling much better since started on the oxygen. Shes much more pleasant today, engaged, friendly, and nice. Prior, she had been agitated, irritable, and borderline aggressive. She reported that she does not have a great memory of the events that brought her in, but she does remember that she did not have enough oxygen. The patient was much more engaged, somewhat confused as the events that have brought her in, however, otherwise was pleasant. Objective Mood: Appropriately reactive. Generally good. Euthymic. More friendly, pleasant, cooperative. Cognition: Much improved, still somewhat confused mildly. Thought Form: Linear and goal directed. Thought Content: No evidence of suicidal ideation. No evidence of delusions. No evidence of aggressive or homicidal ideation. No thoughts of self harm. Judgement: Mildly improved. Assessment F29 Unspecified psychosis not due to a substance or known physiological condition F41.9 Anxiety disorder, unspecified Plan Continue Haldol 1 mg BID. Likely confusion due to low oxygen, Haldol would likely help temper this as her symptoms could become quite worse. Likely triage for discharge, will recommend doing CPS report due to concern. The patient will definitely need oxygen as it appears that hypoxic encephalopathy is a likely cause. Possible discharge tomorrow if we can align all her needs and get her son to help safety proof the home and help arrange for her continued oxygen. Vital Signs Vital Signs Date Time Temp Pulse Resp B/P (MAP) Pulse Ox O2 Delivery O2 Flow Rate FiO2 07/13/20 11:12 20 93 Nasal Cannula 2.0 07/13/20 08:17 111/74 07/13/20 06:57 98.1 82 Laboratory Data 24H Labs Laboratory Tests 2 07/12/20 12:29: Blood Gas Bicarbonate Standard 31.3, Venous Blood pH 7.433H, Venous Blood Partial Pressure CO2 52.7H, Venous Blood Partial Pressure O2 42.0, Venous Blood Total Carbon Dioxide 36.0H, Venous Blood HCO3 34.4H, Venous Blood Oxygen Saturation 77.2, Venous Blood Base Excess 8.2H Current Medications Current Medications Medications (Trade) Dose Ordered Sig/Rosana Route PRN Reason Start Time Stop Time Status Last Admin Dose Admin Acetaminophen (Tylenol Tab) 650 mg Q4HP PRN PO PAIN OR FEVER 11/10/20 20:00 07/12/20 08:23 DC Acetaminophen (Tylenol Tab) 650 mg Q4HP PRN PO MILD PAIN OR FEVER 07/12/20 08:30 07/13/20 03:31 Al Hydrox/Mg Hydrox/Simethicone (Mylanta) 30 ml Q4HP PRN PO HEARTBURN/INDIGESTION 07/11/20 15:00 Albuterol Sulfate (Proventil, Ventolin Hfa) 2 puff Q4H PRN INH SOB/WHEEZING 07/11/20 15:00 Albuterol/ Ipratropium (Duoneb (Ipr 0.5mg/Alb 2.5mg)) 3 ml RQ6H NEB 07/12/20 20:00 Alprazolam (Xanax) 0.25 mg BID PO 07/11/20 21:00 07/12/20 11:07 DC 07/11/20 20:41 Atorvastatin Calcium (Lipitor) 40 mg DAILY PO 07/12/20 09:00 07/13/20 08:16 Budesonide/ Formoterol Fumarate (Symbicort 160/ 4.5mcg) 2 puff RBID INH 07/11/20 20:00 07/13/20 08:19 Clopidogrel Bisulfate (PLAVix) 75 mg DAILY PO 07/13/20 09:00 07/13/20 08:17 Diltiazem HCl (Cardizem Cd) 120 mg DAILY PO 07/12/20 09:00 07/13/20 08:17 Doxycycline Hyclate (Vibramycin) 100 mg BID PO 07/12/20 21:00 07/13/20 08:18 Gabapentin (Neurontin) 200 mg TID PO 07/11/20 16:00 07/13/20 08:17 Haloperidol (Haldol) 0.5 mg BID PO 07/12/20 11:30 07/13/20 08:18 Haloperidol (Haldol) 0.5 mg BID PO 07/12/20 21:00 07/12/20 11:11 DC Home Med (Med Rec Complete!) ASDIRECTED XX 07/11/20 14:15 07/11/20 14:12 DC Ibuprofen (Advil) 400 mg Q6HP PRN PO PAIN 07/11/20 15:00 07/11/20 19:49 DC Levalbuterol HCl (Xopenex Neb) 1.25 mg Q1HP PRN INH SHORTNESS OF BREATH 07/11/20 20:00 Lorazepam (Ativan) 1 mg STAT STAT IM 07/11/20 18:18 07/11/20 18:27 DC 07/11/20 18:32 Magnesium Hydroxide (Milk Of Magnesia) 30 ml DAILYPRN PRN PO CONSTIPATION 07/11/20 15:00 Miscellaneous (Unresolved Clarification Entry) SEE LABEL COMMENTS DAILY XX 07/11/20 09:00 07/11/20 22:07 DC Omeprazole (PriLOSEC) 20 mg DAILY PO 07/12/20 09:00 07/13/20 08:15 Oxybutynin Chloride (Ditropan Xl) 10 mg DAILY PO 07/12/20 09:00 07/13/20 08:18 Oxycodone/ Acetaminophen (Percocet 5mg/ 325mg Tablet) 1 tab BIDP PRN PO Moderate or severe pain 5-10 07/11/20 20:00 07/13/20 11:12 Primidone (Mysoline) 100 mg BID PO 07/11/20 21:00 07/13/20 08:17 Ramelteon (Rozerem) 8 mg QHSP PRN PO INSOMNIA 07/11/20 15:00 07/12/20 21:15 Ropinirole HCl (Requip) 1 mg QAM PO 07/12/20 09:00 07/13/20 08:18 Ropinirole HCl (Requip) 2 mg QHS PO 07/11/20 21:00 07/12/20 21:12 Sodium Chloride 1,000 ml @ 250 mls/hr Q4H IV 07/11/20 10:30 07/11/20 15:32 DC 07/11/20 10:58 Spironolactone (Aldactone) 25 mg DAILY PO 07/12/20 09:00 07/13/20 08:19 Torsemide (Demadex) 100 mg DAILY PO 07/12/20 09:00 07/13/20 08:18 Allergies Coded Allergies: Sulfa (Sulfonamide Antibiotics) (Verified Allergy, Unknown, 07/04/20) RASHAAD LOPEZ DO Jul 13, 2020 11:15
[2020-07-13 17:34] VITALS: BP 111/67
[2020-07-13] MEDS: rOPINIRole 2MG TAB PO SCH (20:24)
[2020-07-14] MEDS: IPRATROPIUM 0.5MG/ALBUTEROL 2.5MG INH SOL UD 3ML (DUONEB) NEB SCH ×2 (02:00→09:38)
[2020-07-14 03:02] VITALS: BP 118/61
[2020-07-14] MEDS: ACETAMINOPHEN TAB 650MG DOSE (2X325MG) PO PRN ×2 (04:29→09:32)
[2020-07-14 06:50] VITALS: BP 118/61
[2020-07-14] MEDS: SYMBICORT 160/4.5MCG INHALER 6GM INH SCH (07:51)
[2020-07-14 09:29] VITALS: BP 113/70
[2020-07-14] MEDS: DOXYCYCLINE HYCLATE 100MG TABLET PO SCH (09:30)
[2020-07-14] MEDS: PRIMIDONE 50 MG TAB PO SCH (09:30)
[2020-07-14] MEDS: TORSEMIDE 100 MG TAB PO SCH (09:30)
[2020-07-14] MEDS: OMEPRAZOLE 20 MG CAP PO SCH (09:31)
[2020-07-14] MEDS: CLOPIDOGREL 75 MG TAB PO SCH (09:31)
[2020-07-14] MEDS: haloperidoL 0.5 MG TAB PO SCH (09:31)
[2020-07-14] MEDS: oxyBUTYnin *DITROPAN XL* 5 MG TABCR PO SCH (09:31)
[2020-07-14] MEDS: GABAPENTIN 100 MG CAP PO SCH (09:31)
[2020-07-14] MEDS: ATORVASTATIN 20 MG TAB PO SCH (09:31)
[2020-07-14] MEDS: rOPINIRole 1MG TAB PO SCH (09:31)
[2020-07-14] MEDS: SPIRONOLACTONE 25 MG TAB PO SCH (09:32)
--- NOTE | 2020-07-14 10:18 | MHDSPDOC ---
[facility] Discharge Summary Discharge Summary DATE OF ADMISSION: Jul 11, 2020 at 15:00 DATE OF DISCHARGE: Jul 14, 2020 at 14:40 DISCHARGE DIAGNOSES: F23 Brief psychotic disorder CONSULTANTS INVOLVED: see below REASON FOR ADMISSION & TREATMENT AND PROGRESS ON THE UNIT : The patient was admitted to the inpatient mental health unit after becoming quite agitated at home, she had not had oxygen after being discharged with hypoxic respiratory failure, she was psychotic and highly distorted. She was admitted and started on low-dose Haldol increase to 1 mg BID, with positive effects. She subsequently improved quite quickly once her oxygen was started as well, becoming pleasant and cooperative, she resolve quickly and the treatment team made sure to connect with CPS about concerns related to children in her home, as well as coordinate with son to create a safer environment and to ensure she had oxygen home. DISCHARGE ASSESSMENT[improved] Legal status considerations: The patient at the time of discharge did not meet criteria for involuntary admission/extension due to having a improved mental status exam, improved insight into the situation, They are engaged in the discharge process, as well as being friendly and amenable in behavioral control and havent been engaging in any observed concerning behavior or ideation recently. They decline voluntary extension/admission at this time and must be discharged in good cristobal, as Im unable to make a case for holding the patient against their will. They may have historical risk factors of admissions and other interactions with psychiatry however, those are not modifiable from a clinical perspective. The patient will need to be discharged in good cristobal. MENTAL STATUS EXAMINATION ON DISCHARGE: General: [Well dressed with good hygiene] Speech: [Spontaneous and fluid] Thought processes: [Linear and logical] Thought content: [Future orientated] Abstract reasoning, and computation: [Intact] Description of associations: [Intact] Description of abnormal or psychotic thoughts:[Denies any suicidal or homicidal ideation. Denies any auditory or visual hallucinations. Does not appear to be responding to internal stimuli. Does not appear to be endorsing any bizarre or paranoid ideation.] Judgment: improved Insight: improved Orientation: alert and much more orientated, mild confusion at times Recent and remote memory: [Intact] Attention span and concentration: [Intact] Fund of knowledge: [Adequate] Mood: ["okay"] Affect: [Euthymic with a full range] PLAN/FOLLOWUP ARRANGEMENTS: Follow up appointments made (PCP and MH in 5 days of D/C date) and safety plan completed. Safety Planning aspects completed prior to discharge [Medication supplies limited to 7 days with 4 refills to prevent accumulation to OD] [Family contact completed, educated on safe practices, instructed on removal and mitigation of dangerous means] [RN reviewed crisis hotline information and other aspects to empower patient to access care in interim before next appointment.] The amount of time spent in the coordination of care for this patient was approximately 30 minutes. Vital Signs/I&Os Vital Signs Date Time Temp Pulse Resp B/P (MAP) Pulse Ox O2 Delivery O2 Flow Rate FiO2 07/14/20 09:46 Nasal Cannula 1.0 07/14/20 09:29 78 113/70 07/14/20 06:50 98.2 18 95 Medications Scheduled Atorvastatin Calcium (Atorvastatin Calcium) 40 Mg Tab, 40 MG PO DAILY, (Reported) Budesonide/Formoterol (Symbicort 160-4.5 Mcg Inhaler) 60 Puff/Inhaler Aers, 2 PUFF INH BID, (Reported) Diltiazem HCl (Cardizem LA) 120 Mg Tab.er.24h, 120 MG PO DAILY, (Reported) Ergocalciferol (Vitamin D2) (Vitamin D2) 50,000 Units Cap, 50,000 UNITS PO QWEEK, (Reported) FRIDAY Gabapentin (Gabapentin) 100 Mg Capsule, 200 MG PO TID, (Reported) Haloperidol (Haloperidol) 0.5 Mg Tablet, 1 MG PO BID for agitation for 7 Days, #14 Omeprazole (Omeprazole) 20 Mg Capsule.dr, 20 MG PO DAILY, (Reported) Oxybutynin Chloride (Oxybutynin Chloride ER) 10 Mg Tab.er.24, 10 MG PO DAILY, (Reported) Prednisone (Prednisone) 10 Mg Tablet, 10 MG PO TAPER, #30 Take 4 tabs daily x 3 days, then 3 tabs daily x 3 days, then 2 tabs daily x 3 days, then 1 tab daily x 3 days and stop Primidone (Mysoline) 50 Mg Tab, 100 MG PO BID, (Reported) Ropinirole HCl (Ropinirole HCl) 1 Mg Tablet, 1 MG PO QAM, (Reported) Ropinirole HCl (Ropinirole HCl) 1 Mg Tablet, 2 MG PO QHS, (Reported) Spironolactone (Spironolactone) 25 Mg Tablet, 25 MG PO DAILY, (Reported) Tiotropium [place] (Spiriva Respimat) 4 Gm Mist.inhal, 2 PUFFS INH DAILY, (Repor damian) Torsemide (Torsemide) 100 Mg Tablet, 100 MG PO DAILY, (Reported) Scheduled PRN Albuterol Sulfate (Ventolin Hfa) 18 Gm Hfa.aer.ad, 2 PUFF INH Q4H PRN for SOB/WHEEZING, (Reported) Oxycodone HCl/Acetaminophen (Oxycodone-Acetaminophen 5-325) 1 Each Tablet, 1 TAB PO BID PRN for PAIN, (Reported) Allergies Coded Allergies: Sulfa (Sulfonamide Antibiotics) (Verified Allergy, Unknown, 07/04/20) RASHAAD LOPEZ DO Jul 14, 2020 10:18
[2020-07-14] MEDS: PERCOCET 5MG/325MG TAB PO PRN (11:11)
[2020-07-14] MEDS ORDERED: HALO0.5H PO (12:11)
--- NOTE | 2020-07-17 11:42 | ECHO ---
DATE OF PROCEDURE: 07/13/2020 Age: 64 Gender: Female REFERRING PHYSICIAN: Galen Blair DO PATIENT LOCATION: Room 2116 REASON FOR STUDY: Congestive heart failure. 2D MEASUREMENTS: IVS 1.3 cm LV 4.6 cm LVPW 1.3 cm LA 2.9 cm Aorta 3.1 cm IVC 1.6 cm DOPPLER MEASUREMENT Peak velocity across the aortic valve 0.87 m/s Peak velocity across the LVOT 0.47 m/s Mitral E 0.47 Mitral A 0.77 with a ratio of 0.6 Maximum tricuspid valve velocity 3.2 m/s 2D COMMENTS: 1. Normal left ventricular size with mildly increased left ventricular wall thickness. Left ventricular systolic function appeared to be mildly depressed, estimated at 45% to 50%. There was mild global hypokinesis. 2. Mildly enlarged left atrium. The right atrium and the right ventricle appeared to be dilated. The right ventricular free wall seems to be hypokinetic. 3. The atrial septum appeared to be normal without evidence of defect or shunt. 4. Normal aortic root. 5. No pericardial effusion seen. 6. Mildly calcified aortic valve with normal leaflet excursion. Mildly calcified mitral annulus with normal anterior mitral valve leaflet motion. Normal tricuspid valve and pulmonic valve. The proximal pulmonary artery branches were not well visualized. 7. The inferior vena cava was normal in size, central venous pressure might be normal. 8. Doppler detects mild mitral regurgitation, mild tricuspid regurgitation. The calculated pulmonary artery systolic pressure varies between 40 to 50 mmHg. Abnormal relaxation pattern was noted across the mitral valve leaflets, as well as the mitral valve annulus consistent with features of grade 1 left ventricular diastolic dysfunction. IMPRESSION: 1. Mildly depressed global left ventricular systolic function with normal left ventricular size, but preserved left ventricular wall thickness. There are some features of left ventricular diastolic dysfunction manifested by abnormal relaxation. 2. Aortic valve sclerosis without stenosis or aortic regurgitation. 3. Mitral annulus calcification with mild mitral regurgitation and a mildly enlarged left atrium. 4. Mild tricuspid regurgitation with moderate pulmonary hypertension. The right heart chambers appear to be dilated. 5. This study was compared to the most recent echocardiogram on 01/12/2020, left ventricular systolic function at that time also appeared to be mildly depressed. MTDD
== END 2020-07-14 14:40 | disposition home or self-care (01) | DRG 885 ==
LOC: M ED 08:51 → M ED INP 15:00 → M PSY 17:10 → UNDODISIN 07-14 13:28
PROVIDERS: ADMIT Psychiatry & Neurology Addiction Medicine; ATTEND Psychiatry & Neurology Addiction Medicine
DX: F23 Brief psychotic disorder (principal); L03.116 Cellulitis of left lower limb; I73.9 Peripheral vascular disease, unspecified; I73.00 Raynaud's syndrome without gangrene; G25.81 Restless legs syndrome; G25.0 Essential tremor; F32.9 Major depressive disorder, single episode, unspecified; F41.9 Anxiety disorder, unspecified; G62.9 Polyneuropathy, unspecified; J44.9 Chronic obstructive pulmonary disease, unspecified; Z79.02 Long term (current) use of antithrombotics/antiplatelets; F17.200 Nicotine dependence, unspecified, uncomplicated; Z99.81 Dependence on supplemental oxygen; Z79.899 Other long term (current) drug therapy; Z88.2 Allergy status to sulfonamides; Z78.1 Physical restraint status

== ENCOUNTER 2020-07-21 03:33 | Emergency (ER) | payer MEDICARE, OTHER ==
[~2020-07-21 03:33] MED LIST changes: +HALO0.5H PO; +MED REC COMMENT
[2020-07-21] MEDS ORDERED: LORazepam 2 MG/ML VIAL IM ONE (03:45)
[2020-07-21] MEDS ORDERED: diphenhydrAMINE 50MG/ML VIAL (J1200) IM ONE (03:45)
[2020-07-21] MEDS ORDERED: NS 500 ML IV ONE (03:45)
[2020-07-21] MEDS ORDERED: HALOPERIDOL 5MG/ML VIAL (J1630 PER 1) IM ONE (03:45)
[2020-07-21] MEDS ORDERED: LORazepam 2 MG/ML VIAL As Ordered ONE (04:10)
[2020-07-21 04:38] LABS: BASO # 0.1 10^3/uL (0.0-0.2); BASO % 0.7 % (0.0-1.0); EOS # 0.2 10^3/uL (0.0-0.5); EOS % 1.3 % (0.0-3.0); HEMATOCRIT 49.1 % (36.0-47.0); HEMOGLOBIN 14.8 g/dl (12.0-15.5); LYMPH # 2.5 10^3/uL (1.5-5.0); LYMPH % 19.5 % (24.0-44.0); MEAN CORPUSCULAR HEMOGLOBIN 23.8 pg (27.0-33.0); MEAN CORPUSCULAR HGB CONC 30.1 g/dl (32.0-36.5); MEAN CORPUSCULAR VOLUME 78.9 fl (80.0-96.0); MONO % 7.8 % (0.0-5.0); NEUTROPHILS # 9.2 10^3/uL (1.5-8.5); NEUTROPHILS % 70.2 % (36.0-66.0); PLATELET COUNT, AUTOMATED 296 10^3/uL (150-450); RED BLOOD COUNT 6.22 10^6/uL (4.00-5.40)
[2020-07-21 04:54] LABS: OSMOLALITY SERUM 306 MOSM/KG (280-301)
[2020-07-21 04:58] LABS: AMPHETAMINES LEVEL URINE NEGATIVE (NEGATIVE); BARBITURATES URINE POSITIVE (NEGATIVE); BENZODIAZEPINES URINE NEGATIVE (NEGATIVE); CANNABINOIDS URINE NEGATIVE (NEGATIVE); COCAINE METABOLITE URINE NEGATIVE (NEGATIVE); METHADONE URINE NEGATIVE (NEGATIVE); OPIATES URINE NEGATIVE (NEGATIVE); PHENCYCLIDINE URINE NEGATIVE (NEGATIVE)
[2020-07-21 05:17] LABS: ACETAMINOPHEN LEVEL < 2.0 UG/ML (10.0-30.0); ALBUMIN 3.6 GM/DL (3.2-5.2); ALT/SGPT 70 U/L (12-78); BILIRUBIN,DIRECT 0.2 MG/DL (0.0-0.2); BILIRUBIN,TOTAL 0.4 MG/DL (0.2-1.0); BLOOD UREA NITROGEN 38 MG/DL (7-18); CALCIUM LEVEL 8.8 MG/DL (8.8-10.2); CARBON DIOXIDE LEVEL 33 MEQ/L (21-32); CHLORIDE LEVEL 96 MEQ/L (98-107); CK-MB VALUE MASS 8.1 NG/ML (<3.6); CPK CREATINE PHOSPHOKINASE 139 U/L (26-192); ETHYL ALCOHOL (ETHANOL) < 0.003 % (0.000-0.010); GLOMERULAR FILTRATION RATE > 60.0 (>45); GLUCOSE, FASTING 140 MG/DL (70-100); MB/CK RELATIVE INDEX 5.83 (< OR =4); POTASSIUM SERUM 4.4 MEQ/L (3.5-5.1); SALICYLATE LEVEL 2.8 MG/DL (5.0-30.0); SODIUM LEVEL 135 MEQ/L (136-145); TOTAL PROTEIN 7.1 GM/DL (6.4-8.2); TROPONIN I 0.04 NG/ML (< 0.10)
[2020-07-21] MEDS ORDERED: KETOROLAC 30 MG/ML 1ML VIAL IV ONE (06:00)
--- NOTE | 2020-07-21 06:16 | REPVR ---
PROCEDURE INFORMATION: Exam: CT Head Without Contrast Exam date and time: 07/21/2020 4:28 AM Age: 64 years old Clinical indication: Altered mental status/memory loss; Confusion or disorientation; Additional info: AMS TECHNIQUE: Imaging protocol: Computed tomography of the head without contrast. Radiation optimization: All CT scans at this facility use at least one of these dose optimization techniques: automated exposure control; mA and/or kV adjustment per patient size (includes targeted exams where dose is matched to clinical indication); or iterative reconstruction. COMPARISON: CT Head without contrast 07/04/2020 2:20 PM FINDINGS: Brain: Normal. No hemorrhage. Unremarkable white matter. No mass effect. Cerebral ventricles: No ventriculomegaly. Bones/joints: Unremarkable. No acute fracture. Paranasal sinuses: Visualized sinuses are unremarkable. No fluid levels. Mastoid air cells: Visualized mastoid air cells are well aerated. Soft tissues: Unremarkable. IMPRESSION: No acute intracranial abnormality. Electronically signed by: Lawrence Pineda On 07/21/2020 06:16:44 AM
[2020-07-21] MEDS ORDERED: HALO0.5H PO (06:43)
[2020-07-21] MEDS ORDERED: PATIENT COMMENT (06:47)
[2020-07-21] MEDS ORDERED: ALBUTEROL 90 MCG/ACT 8GM HFA INHALER INH PRN (15:15)
[2020-07-21] MEDS ORDERED: ACETAMINOPHEN TAB 650MG DOSE (2X325MG) PO PRN (15:15)
[2020-07-21 15:18] VITALS: BP 108/58
[2020-07-21] MEDS ORDERED: SYMBICORT 160/4.5MCG INHALER 6GM INH SCH (20:00)
--- NOTE | 2020-07-21 20:48 | CR.PDOC ---
General Date of Consultation: Jul 21, 2020 Consultation Chief complaint: Who presented to the ER brought in by police for possible intoxication History of present illness: Patient is a 64-year-old female with a PMHx of PVD (on Plavix), Raynauds, RLS, Essential tremors, Depression / Anxiety, Peripheral polyneuropathy who presented to the hospital, brought in by police for suspected intoxication. While emergency room, patient had urine drug screen that was consistent with barbiturate use. Patient was given time to help alleviate her aggravation/intoxication. After 12 hours, hospitalist service was called for further evaluation. Patient has had a recent hospitalization on 07/04 to 07/05 for similar situation. Patient again had a hospitalization at the inpatient mental health unit 07/12 to 07/14 for psychosis, which was thought to be secondary to lack of oxygen. Upon evaluation of patient in the emergency room, patient was oriented to person, place and time. She reported who the president was. Patient reported that she was recently at the inpatient mental health unit and they had provider her home oxygen to use. Currently patient denies any nausea, vomiting, abdominal pain, constipation, diarrhea, or urinary discomfort. She reports a mild cough that is nonproductive. Denies any shortness of breath despite her not wearing any oxygen at the moment. Patient reports that she does use oxygen at home. During the conversation patient has been placed on oxygen and has been conversing and answering questions appropriately. She has noted details of her history. Had an extensive discussion with the patient, psychiatry (Dr. Morataya) and son (Neeraj Zazueta). Currently patient is capable and has the capacity to make decisions at this time. Patient does have the ability to sign out AGAINST MEDICAL ADVICE. I have advised of the risks of leaving AGAINST MEDICAL ADVICE including worsening of her medical condition, disability and/or . The benefits including continuing to watch her lab work and to continue with physical therapy. 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 Review of Systems: 10 point review of systems complete, all negative otherwise stated in HPI Physical exam: - Vitals: BP [108/58], HR [82], RR [18], Sat [94%NC3L], Temp [96.8F] - General: Lying in bed, Speaking in full sentences, AAOx3 - HEENT: NC, AT, PERRLA - CVS: RRR, +S1S2 - Lungs: Poor air entry bilaterally, No wheezing / rales / rhonchi - Abdomen: Soft, Non-distended, Non-tender - Extremities: No lower extremity edema, R leg with dressing in place - Neuro: No focal motor or sensory deficit Assessment and Plan: s/p Acute toxic encephalopathy - Currently patient is awake, alert and oriented to person, place and time, she is reported with the president is - Denies suicidal / homicidal ideation - Physical does not reveal any focal neurologic deficits - No significant electrolyte abnormalities - CT head 07/21: No acute intracranial abnormality. - Extensive discussion with patient / psychiatry, Dr. Morataya / Son, Neeraj Zazueta - patient currently does have the capacity to make decisions; she is oriented to person, place, time and has understanding of what has transpired prior to arrival - I discussed with her that we will keep her in the hospital to follow lab work and working with physical therapy - Patient was able to ambulate in the room without any difficulty and reported that she did not need any physical therapy - Patient signed out against medical advice; she is advised of the risks of leaving including worsening of her medical condition, disability and/or ; patient has understood these risks - I have again called out to her son, Neeraj Zazueta and informed him of the update s/p Lactic acidosis Vital Signs/I&O Vital Signs Date Time Temp Pulse Resp B/P (MAP) Pulse Ox O2 Delivery O2 Flow Rate FiO2 07/21/20 15:30 82 07/21/20 15:18 108/58 (75) 07/21/20 15:00 58 07/21/20 11:57 96.8 18 Nasal Cannula 2.0 Laboratory Data Labs 24H Laboratory Tests 2 07/21/20 04:24: POC pH (Misc Panel) 7.348L, POC Base Excess (Misc Panel) 14.0H, POC Saturated Percent O2 (Misc) 21L, POC pO2 (Misc Panel) 18.0*L, POC pCO2 (Misc Panel) 72.5*H, POC HCO3 (Misc Panel) 39.8H, POC Total CO2 (Misc Panel) 42.0H 07/21/20 04:28: Immature Granulocyte % (Auto) 0.5, Neutrophils (%) (Auto) 70.2H, Lymphocytes (%) (Auto) 19.5L, Monocytes (%) (Auto) 7.8H, Eosinophils (%) (Auto) 1.3, Basophils (%) (Auto) 0.7, Neutrophils # (Auto) 9.2H, Lymphocytes # (Auto) 2.5, Monocytes # (Auto) 1.0H, Eosinophils # (Auto) 0.2, Basophils # (Auto) 0.1, Nucleated Red Blood Cells % (auto) 0.0, Urine Color YELLOW, Urine Appearance CLEAR, Urine pH 5.0, Urine Specific [place] 1.010, Urine Protein NEGATIVE, Urine Glucose (UA) NEGATIVE, Urine Ketones NEGATIVE, Urine Blood NEGATIVE, Urine Nitrite NEGATIVE, Urine Bilirubin NEGATIVE, Urine Urobilinogen 0.2, Urine Leukocyte Esterase NEGATIVE, Urine WBC (Auto) 2, Urine RBC (Auto) 1, Urine Hyaline Casts (Auto) 1, Urine Bacteria (Auto) 1+H, Urine Squamous Epithelial Cells 3, Urine Sperm (Auto) , Anion Gap 6L, Glomerular Filtration Rate > 60.0, Osmolality 306H, Lactic Acid Level 2.5*H, Calcium Level 8.8, Total Bilirubin 0.4, Direct Bilirubin 0.2, Aspartate Amino Transf (AST/SGOT) 46H, Alanine Aminotransferase (ALT/SGPT) 70, Alkaline Phosphatase 137H, Ammonia 14, Total Creatine Kinase 139, Creatine Kinase MB 8.1H, Creatine Kinase MB Relative Index 5.83H, Troponin I 0.04, Total Protein 7.1, Albumin 3.6, Albumin/Globulin Ratio 1.0L, Thyroid Stimulating Hormone (TSH) 4.710H, Salicylates Level 2.8L, Urine Opiates Screen NEGATIVE, Urine Methadone Screen NEGATIVE, Acetaminophen Level < 2.0L, Urine Barbiturates Screen POSITIVEH, Urine Phencyclidine Screen NEGATIVE, Urine Amphetamines Screen NEGATIVE, Urine Benzodiazepines Screen NEGATIVE, Urine Cocaine Metabolite Scr een NEGATIVE, Urine Cannabinoids Screen NEGATIVE, Ethyl Alcohol Level < 0.003 07/21/20 05:01: POC pH (Misc Panel) 7.387, POC Base Excess (Misc Panel) 9.0H, POC Saturated Percent O2 (Misc) 74L, POC pO2 (Misc Panel) 41.0*L, POC pCO2 (Misc Panel) 56.3H, POC HCO3 (Misc Panel) 33.8H, POC Total CO2 (Misc Panel) 36.0H 07/21/20 06:36: Coronavirus (COVID-19)(PCR) NEGATIVE 07/21/20 14:37: Lactic Acid Followup at 4 Hours 1.0 CBC/BMP Laboratory Tests 07/21/20 04:28 Allergies Coded Allergies: Sulfa (Sulfonamide Antibiotics) (Verified Allergy, Unknown, 07/21/20) Home Medications Scheduled Atorvastatin Calcium (Atorvastatin Calcium) 40 Mg Tab, 40 MG PO DAILY, (Reported) Budesonide/Formoterol (Symbicort 160-4.5 Mcg Inhaler) 60 Puff/Inhaler Aers, 2 PUFF INH BID, (Reported) Diltiazem HCl (Cardizem LA) 120 Mg Tab.er.24h, 120 MG PO DAILY, (Reported) Ergocalciferol (Vitamin D2) (Vitamin D2) 50,000 Units Cap, 50,000 UNITS PO QWEEK, (Reported) FRIDAY Gabapentin (Gabapentin) 100 Mg Capsule, 200 MG PO TID, (Reported) Haloperidol (Haloperidol) 0.5 Mg Tablet, 0.5 MG PO BID, (Reported) Omeprazole (Omeprazole) 20 Mg Capsule.dr, 20 MG PO DAILY, (Reported) Oxybutynin Chloride (Oxybutynin Chloride ER) 10 Mg Tab.er.24, 10 MG PO DAILY, (Reported) Prednisone (Prednisone) 10 Mg Tablet, 10 MG PO TAPER, #30 Take 4 tabs daily x 3 days, then 3 tabs daily x 3 days, then 2 tabs daily x 3 days, then 1 tab daily x 3 days and stop Primidone (Mysoline) 50 Mg Tab, 100 MG PO BID, (Reported) Ropinirole HCl (Ropinirole HCl) 1 Mg Tablet, 1 MG PO BID, (Reported) MORNING AND NOON Ropinirole HCl (Ropinirole HCl) 1 Mg Tablet, 2 MG PO QHS, (Reported) Spironolactone (Spironolactone) 25 Mg Tablet, 25 MG PO DAILY, (Reported) Tiotropium [place] (Spiriva Respimat) 4 Gm Mist.inhal, 2 PUFFS INH DAILY, (Reported) Tizanidine HCl (Tizanidine HCl) 4 Mg Capsule, 4 MG PO TID, (Reported) Torsemide (Torsemide) 100 Mg Tablet, 100 MG PO DAILY, (Reported) Scheduled PRN Albuterol Sulfate (Ventolin Hfa) 18 Gm Hfa.aer.ad, 2 PUFF INH Q4H PRN for SOB/WHEEZING, (Reported) Oxycodone HCl/Acetaminophen (Oxycodone-Acetaminophen 5-325) 1 Each Tablet, 1 TAB PO BID PRN for PAIN, (Reported) Miscellaneous Medications [Patient Comment] , (Reported) MED REC COMPLETED VIA EXTERNAL HISTORY KATIE VERMA MD Jul 21, 2020 18:01
[2020-07-21] MEDS ORDERED: rOPINIRole 1MG TAB PO SCH (21:00)
[2020-07-21] MEDS ORDERED: GABAPENTIN 100 MG CAP PO SCH (21:00)
[2020-07-21] MEDS ORDERED: PRIMIDONE 50 MG TAB PO SCH (21:00)
--- NOTE | 2020-07-21 21:35 | ECGEPIP ---
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
[2020-07-21] MEDS ORDERED: TIZA4CAP PO (23:36)
[2020-07-22] MEDS ORDERED: TIOTROPIUM INHALER/CAPSULE (SPIRIVA) INH SCH (08:00)
[2020-07-22] MEDS ORDERED: ATORVASTATIN 20 MG TAB PO SCH (09:00)
[2020-07-22] MEDS ORDERED: TORSEMIDE 100 MG TAB PO SCH (09:00)
[2020-07-22] MEDS ORDERED: OMEPRAZOLE 20 MG CAP PO SCH (09:00)
[2020-07-22] MEDS ORDERED: oxyBUTYnin *DITROPAN XL* 5 MG TABCR PO SCH (09:00)
[2020-07-22] MEDS ORDERED: ENOXAPARIN 40MG/0.4ML SYRINGE (J1650 PER 10MG) SC SCH (09:00)
[2020-07-22] MEDS ORDERED: rOPINIRole 1MG TAB PO SCH (09:00)
[2020-07-22] MEDS ORDERED: SPIRONOLACTONE 25 MG TAB PO SCH (09:00)
== END 2020-07-21 16:56 | disposition left against medical advice (07) ==
LOC: M ED 03:33
DX: G93.41 Metabolic encephalopathy (principal); F29 Unspecified psychosis not due to a substance or known physiological condition; F13.10 Sedative, hypnotic or anxiolytic abuse, uncomplicated; I25.10 Atherosclerotic heart disease of native coronary artery without angina pectoris; I25.2 Old myocardial infarction; J44.9 Chronic obstructive pulmonary disease, unspecified; I73.00 Raynaud's syndrome without gangrene; J96.00 Acute respiratory failure, unspecified whether with hypoxia or hypercapnia; G43.909 Migraine, unspecified, not intractable, without status migrainosus; I73.9 Peripheral vascular disease, unspecified; R05 Cough; G25.81 Restless legs syndrome; G25.0 Essential tremor; F41.9 Anxiety disorder, unspecified; F32.9 Major depressive disorder, single episode, unspecified; G62.9 Polyneuropathy, unspecified; F17.210 Nicotine dependence, cigarettes, uncomplicated; Z88.2 Allergy status to sulfonamides; Z79.899 Other long term (current) drug therapy; Z79.02 Long term (current) use of antithrombotics/antiplatelets; Z79.51 Long term (current) use of inhaled steroids

== ENCOUNTER 2020-07-21 20:34 | Inpatient (IN) | payer MEDICARE, OTHER ==
[~2020-07-21] VITALS: Ht 170.2 cm; Wt 56.7 kg
[~2020-07-21 20:34] MED LIST changes: +PATIENT COMMENT
[2020-07-21] MEDS ORDERED: NS 1,000 ML IV ONE (20:45)
[2020-07-21] MEDS ORDERED: HALOPERIDOL 5MG/ML VIAL (J1630 PER 1) IM ONE (21:00)
[2020-07-21] MEDS ORDERED: diphenhydrAMINE 50MG/ML VIAL (J1200) IM ONE (21:00)
[2020-07-21] MEDS ORDERED: LORazepam 2 MG/ML VIAL IM ONE (21:00)
[2020-07-21 21:16] LABS: VENOUS BASE EXCESS 9.3 (-2.0-2.0); VENOUS O2 SATURATION 53.9 % (60.0-80.0); VENOUS PARTIAL PRESSURE CO2 75.6 mmHg (38.0-50.0); VENOUS PARTIAL PRESSURE O2 27.2 mmHg (30.0-50.0); VENOUS STANDARD HCO3 31.7 MEQ/L; VENOUS TOTAL CO2 41.3 MEQ/L (24.0-28.0)
[2020-07-21 21:32] LABS: BASO # 0.1 10^3/uL (0.0-0.2); BASO % 0.6 % (0.0-1.0); EOS # 0.1 10^3/uL (0.0-0.5); EOS % 1.1 % (0.0-3.0); HEMATOCRIT 49.9 % (36.0-47.0); LYMPH # 1.6 10^3/uL (1.5-5.0); LYMPH % 13.4 % (24.0-44.0); MEAN CORPUSCULAR HEMOGLOBIN 23.6 pg (27.0-33.0); MEAN CORPUSCULAR HGB CONC 30.1 g/dl (32.0-36.5); MEAN CORPUSCULAR VOLUME 78.6 fl (80.0-96.0); MONO # 0.9 10^3/uL (0.0-0.8); MONO % 7.9 % (0.0-5.0); NEUTROPHILS # 9.2 10^3/uL (1.5-8.5); NEUTROPHILS % 76.6 % (36.0-66.0); PLATELET COUNT, AUTOMATED 256 10^3/uL (150-450); RED BLOOD COUNT 6.35 10^6/uL (4.00-5.40)
--- NOTE | 2020-07-21 21:47 | ECGEPIP ---
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
[2020-07-21 21:49] LABS: OSMOLALITY SERUM 298 MOSM/KG (280-301)
[2020-07-21 21:55] LABS: ACETAMINOPHEN LEVEL < 2.0 UG/ML (10.0-30.0); ALBUMIN 3.7 GM/DL (3.2-5.2); ALT/SGPT 68 U/L (12-78); BILIRUBIN,DIRECT 0.2 MG/DL (0.0-0.2); BILIRUBIN,TOTAL 0.4 MG/DL (0.2-1.0); BLOOD UREA NITROGEN 31 MG/DL (7-18); CALCIUM LEVEL 9.4 MG/DL (8.8-10.2); CARBON DIOXIDE LEVEL 38 MEQ/L (21-32); CHLORIDE LEVEL 96 MEQ/L (98-107); CPK CREATINE PHOSPHOKINASE 789 U/L (26-192); CREATININE FOR GFR 0.76 MG/DL (0.55-1.30); ETHYL ALCOHOL (ETHANOL) < 0.003 % (0.000-0.010); GLOMERULAR FILTRATION RATE > 60.0 (>45); GLUCOSE, FASTING 125 MG/DL (70-100); MB/CK RELATIVE INDEX 2.15 (< OR =4); POTASSIUM SERUM 4.4 MEQ/L (3.5-5.1); SALICYLATE LEVEL 2.9 MG/DL (5.0-30.0); SODIUM LEVEL 137 MEQ/L (136-145); TOTAL PROTEIN 7.3 GM/DL (6.4-8.2); TROPONIN I 0.06 NG/ML (< 0.10)
[2020-07-21] MEDS ORDERED: MOM 30ML SUSPENSION UDC PO PRN (22:45)
[2020-07-21] MEDS ORDERED: MAALOX 30 ML SUSP *UDC PO PRN (22:45)
--- NOTE | 2020-07-21 23:23 | IPNPDOC ---
Text Note Date of Service The patient was seen on 07/21/20. VS,[place], I+O VS, Fishbone, I+O Laboratory Tests 07/21/20 21:02 07/21/20 21:03 Vital Signs Date Time Temp Pulse Resp B/P (MAP) Pulse Ox O2 Delivery O2 Flow Rate FiO2 07/21/20 22:19 97.3 86 20 159/92 (114) 96 Nasal Cannula 2.0 ALEJANDRO PANDYA MD Jul 21, 2020 23:23
--- NOTE | 2020-07-21 23:26 | HPEPDOC ---
[facility] Medical History & Physical Date of Admission Jul 21, 2020 Date of Service: Jul 21, 2020 Attending Physician: ALEJANDRO PANDYA MD History and Physical TIME OF SERVICE: 10:50 PM CHIEF COMPLAINT: brought to hospital in by police HISTORY OF PRESENT ILLNESS: The majority of the history is obtained from ER staff and Dr. Delarosa. This 64-year-old female has had 4 visits to the ER since July 04 for evaluation of confusion. Yesterday evening she was brought in to the hospital for evaluation of confusion, apparently she had been wandering outside in the streets on a cold night with in adequate clothing. Plans had been made to admit her for evaluation of AMS but she signed out AMA prior to being admitted. After she left Police officers found her wandering in the streets and took her home. Her son noticed that she walked to the kitchen and defecated on the floor, she the proceeded to take her clothes off and began walking around outside without any clothing; police officers escorted her back to the ER. At the time of my evaluation, the patient reported not being able to remember everything and declined during some of my questions. REVIEW OF SYSTEMS: 12 point review of systems negative except as listed in HPI PAST MEDICAL/ SURGICAL HISTORY: COPD HFpEF PVD Raynauds RLS Essential tremors Depression / Anxiety Peripheral polyneuropathy Bilateral carotid endarterectomy (2016, 2016) Tonsillectomy Colonoscopy ; 2018, 2013, 2015 SOCIAL HISTORY: + tobacco & THC use / denies alcohol use FAMILY HISTORY: Father - colon cancer ALLERGIES: Please see below. HOME MEDICATIONS: Please see below. PHYSICAL EXAMINATION: Vital Signs Date Time Temp Pulse Resp B/P (MAP) Pulse Ox O2 Delivery O2 Flow Rate FiO2 07/21/20 20:46 86 16 161/93 (115) 91 Room Air 07/21/20 22:19 97.3 2.0 GEN: slim build/ well developed INTEGUMENT: not flushed/ not jaundice HEENT: lips acyanotic /mucus membranes moist and pink CVS: RRR/NMRG/ LUNGS: able to speak full sentences without stopping to take a breath / no coughing / lungs are clear to auscultation bilaterally on room air ABDOMEN: Contour (flat) MSK/EXTREMITIES: NCAT / range of motion intact in all 4 extremities NEURO: speech is not dysarthric PSYCH: alert and oriented / patient is guarded and provides limited history LABORATORY DATA: 07/21/20 21:02 07/21/20 21:03 07/21/20 20:43: Lactic Acid Level 1.3 07/21/20 21:02: Blood Gas Bicarbonate Standard 31.7, Venous Blood pH 7.330, Venous Blood Partial Pressure CO2 75.6H, Venous Blood Partial Pressure O2 27.2L, Venous Blood Total Carbon Dioxide 41.3H, Venous Blood HCO3 39.0H, Venous Blood Oxygen Saturation 53.9L, Venous Blood Base Excess 9.3H, Anion Gap 3L, Glomerular Filtration Rate > 60.0, Osmolality 298, Calcium Level 9.4, Total Bilirubin 0.4, Direct Bilirubin 0.2, Aspartate Amino Transf (AST/SGOT) 61H, Alanine Aminotransferase (ALT/SGPT) 68, Alkaline Phosphatase 141H, Ammonia 22, Total Creatine Kinase 789#H, Creatine Kinase MB 17.0H, Creatine Kinase MB Relative Index 2.15, Troponin I 0.06#, Total Protein 7.3, Albumin 3.7, Albumin/Globulin Ratio 1.0L, Thyroid Stimulating Hormone (TSH) 2.990, Salicylates Level 2.9L, Acetaminophen Level < 2.0L, Ethyl Alcohol Level < 0.003 07/21/20 21:03: Immature Granulocyte % (Auto) 0.4, Neutrophils (%) (Auto) 76.6H, Lymphocytes (%) (Auto) 13.4L, Monocytes (%) (Auto) 7.9H, Eosinophils (%) (Auto) 1.1, Basophils ( %) (Auto) 0.6, Neutrophils # (Auto) 9.2H, Lymphocytes # (Auto) 1.6, Monocytes # (Auto) 0.9H, Eosinophils # (Auto) 0.1, Basophils # (Auto) 0.1, Nucleated Red Blood Cells % (auto) 0.0 07/21/20 21:08: Bedside Glucose (Misc Panel) 116H IMAGING: CT head Jul 21 "No acute intracranial abnormality" ASSESSMENT: Ms. Branham is a 64 yr old w a hx of COPD, HFpEF, PVD (on Plavix), Raynauds, RLS, Essential tremors, Depression / Anxiety & Peripheral polyneuropathy who was brought to the hospital for evaluation of abnormal behavior, specifically wandering around the streets with inappropriate clothing, and defecating in inappropriate places; she'll be admitted for evaluation of encephalopathy and management of mild rhabdomyolysis. PLAN: 1. Encephalopathy Cause TBD It is possible that this is 2/2 recreational drugs or hypercapnia CT head & TSH unrevealing PCO2 is elevated on VBG Plan: admit to medical floor / 1:1 sitter / f/u B12, B1 & urine drug screen / frequent neurochecks / check ABG / day time team may consider Psych eval if indicated 2. Mild Rhabdomyolysis Possibly 2/2 agitation or recreational drug Plan: IVF/ f/u UDS / trend CPK / monitor renal function 3. Hypercapnia / Mild acute COPD likely 2/2 smoking Max RR 22 Chest xray unremarkable COVID 19 neg Plan: supplemental O2, continuous pulse ox al O2 / continuous pulse oximetry / aspiration precautions / COPD diet / f/u ABG /Solumedrol now followed by Prednisone with PPI / Dunebs Q6H, Albuterol Q1HP 4. HFpEF Plan: torsemide 5. PVD Plan: atorvastatin 6. Raynauds Plan: Cardizem 7. RLS Plan: ropinirole 8. Essential tremors Plan: primidone 9. Peripheral polyneuropathy Plan: gabapentin DVT PROPHYLAXIS: Lovenox DISPOSITION: home after more than 2 midnight's stay Home Medications Scheduled Atorvastatin Calcium (Atorvastatin Calcium) 40 Mg Tab, 40 MG PO DAILY Budesonide/Formoterol (Symbicort 160-4.5 Mcg Inhaler) 60 Puff/Inhaler Aers, 2 PUFF INH BID Diltiazem HCl (Cardizem LA) 120 Mg Tab.er.24h, 120 MG PO DAILY Ergocalciferol (Vitamin D2) (Vitamin D2) 50,000 Units Cap, 50,000 UNITS PO QWEEK FRIDAY Gabapentin (Gabapentin) 100 Mg Capsule, 200 MG PO TID Haloperidol (Haloperidol) 0.5 Mg Tablet, 0.5 MG PO BID Omeprazole (Omeprazole) 20 Mg Capsule.dr, 20 MG PO DAILY Oxybutynin Chloride (Oxybutynin Chloride ER) 10 Mg Tab.er.24, 10 MG PO DAILY Prednisone (Prednisone) 10 Mg Tablet, 10 MG PO TAPER Take 4 tabs daily x 3 days, then 3 tabs daily x 3 days, then 2 tabs daily x 3 days, then 1 tab daily x 3 days and stop Primidone (Mysoline) 50 Mg Tab, 100 MG PO BID Ropinirole HCl (Ropinirole HCl) 1 Mg Tablet, 1 MG PO BID MORNING AND NOON Ropinirole HCl (Ropinirole HCl) 1 Mg Tablet, 2 MG PO QHS Spironolactone (Spironolactone) 25 Mg Tablet, 25 MG PO DAILY Tiotropium [place] (Spiriva Respimat) 4 Gm Mist.inhal, 2 PUFFS INH DAILY Tizanidine HCl (Tizanidine HCl) 4 Mg Capsule, 4 MG PO TID Torsemide (Torsemide) 100 Mg Tablet, 100 MG PO DAILY Scheduled PRN Albuterol Sulfate (Ventolin Hfa) 18 Gm Hfa.aer.ad, 2 PUFF INH Q4H PRN for SOB/WHEEZING Oxycodone HCl/Acetaminophen (Oxycodone-Acetaminophen 5-325) 1 Each Tablet, 1 TAB PO BID PRN for PAIN Miscellaneous Medications [Patient Comment] MED REC COMPLETED VIA EXTERNAL HISTORY Allergies Coded Allergies: Sulfa (Sulfonamide Antibiotics) (Verified Allergy, Unknown, 07/21/20) A-FIB/CHADSVASC A-FIB History Current/History of A-Fib/PAF?: No Current PO Anticoag Therapy: ALEJANDRO Salmon MD Jul 21, 2020 23:26
[2020-07-21] MEDS ORDERED: TIZA4CAP PO (23:36)
[2020-07-22] MEDS ORDERED: PERCOCET 5MG/325MG TAB PO PRN
[2020-07-22] MEDS ORDERED: SYMBICORT 160/4.5MCG INHALER 6GM INH SCH
[2020-07-22] MEDS ORDERED: ALBUTEROL 90 MCG/ACT 8GM HFA INHALER INH PRN
[2020-07-22] MEDS ORDERED: OLANZapine INTRAMUSCULAR 10MG VIAL IM ONE (00:15)
[2020-07-22] MEDS ORDERED: LORazepam 2 MG/ML VIAL IM STA (01:11)
[2020-07-22] MEDS ORDERED: diphenhydrAMINE 50MG/ML VIAL (J1200) IM ONE (01:15)
[2020-07-22 01:30] VITALS: BP 142/96
[2020-07-22] MEDS: rOPINIRole 1MG TAB PO SCH ×2 (02:01→20:38)
[2020-07-22] MEDS: haloperidoL 0.5 MG TAB PO SCH ×3 (02:01→20:43)
[2020-07-22] MEDS: GABAPENTIN 100 MG CAP PO SCH ×4 (02:01→20:38)
[2020-07-22] MEDS: NS 1,000 ML IV SCH ×2 (02:01→05:25)
[2020-07-22] MEDS ORDERED: methylPREDNISolone 125MG 2ML VIAL IV STA (02:41)
[2020-07-22] MEDS ORDERED: ALBUTEROL SULFATE 2.5 MG/0.5 ML INH NEB SOLN NEB PRN (02:45)
[2020-07-22] MEDS ORDERED: LORazepam 2 MG/ML VIAL IV STA (03:12)
[2020-07-22 03:59] LABS: ABG BASE EXCESS 5.1 (-2.0-2.0); ABG O2 SATURATION 97.9 % (95.0-99.0); ABG PARTIAL PRESSURE CO2 50.1 mmHg (35.0-45.0); ABG PARTIAL PRESSURE O2 102.6 mmHg (75.0-100.0); ABG TOTAL CO2 32.5 MEQ/L (23.0-31.0); ABG pH (ARTERIAL) 7.409 UNITS (7.350-7.450)
[2020-07-22 04:06] LABS: AMPHETAMINES LEVEL URINE NEGATIVE (NEGATIVE); BARBITURATES URINE POSITIVE (NEGATIVE); BENZODIAZEPINES URINE POSITIVE (NEGATIVE); CANNABINOIDS URINE NEGATIVE (NEGATIVE); COCAINE METABOLITE URINE NEGATIVE (NEGATIVE); METHADONE URINE NEGATIVE (NEGATIVE); OPIATES URINE NEGATIVE (NEGATIVE); PHENCYCLIDINE URINE NEGATIVE (NEGATIVE)
[2020-07-22 05:09] LABS: HEMATOCRIT 48.1 % (36.0-47.0); HEMOGLOBIN 14.9 g/dl (12.0-15.5); MEAN CORPUSCULAR HEMOGLOBIN 24.5 pg (27.0-33.0); MEAN CORPUSCULAR VOLUME 79.2 fl (80.0-96.0); PLATELET COUNT, AUTOMATED 260 10^3/uL (150-450); RED BLOOD COUNT 6.07 10^6/uL (4.00-5.40); WHITE BLOOD COUNT 12.7 10^3/uL (4.0-10.0)
[2020-07-22 05:10] LABS: HEMATOCRIT 48.1 % (36.0-47.0)
[2020-07-22 05:34] LABS: BLOOD UREA NITROGEN 22 MG/DL (7-18); CARBON DIOXIDE LEVEL 33 MEQ/L (21-32); CHLORIDE LEVEL 102 MEQ/L (98-107); CPK CREATINE PHOSPHOKINASE 659 U/L (26-192); CREATININE FOR GFR 0.64 MG/DL (0.55-1.30); GLOMERULAR FILTRATION RATE > 60.0 (>45); GLUCOSE, FASTING 139 MG/DL (70-100); POTASSIUM SERUM 4.4 MEQ/L (3.5-5.1); SODIUM LEVEL 140 MEQ/L (136-145)
[2020-07-22] MEDS: TIOTROPIUM INHALER/CAPSULE (SPIRIVA) INH SCH (07:24)
[2020-07-22] MEDS: IPRATROPIUM 0.5MG/ALBUTEROL 2.5MG INH SOL UD 3ML (DUONEB) NEB SCH ×3 (07:25→19:51)
[2020-07-22 08:00] VITALS: BP 128/75
[2020-07-22] MEDS ORDERED: PANTOPRAZOLE 40MG TAB (PROTONIX) PO SCH (09:00)
[2020-07-22] MEDS ORDERED: predniSONE 20 MG TAB PO SCH ×2 (09:00)
[2020-07-22] MEDS ORDERED: TORSEMIDE 100 MG TAB PO SCH (09:00)
[2020-07-22] MEDS ORDERED: tiZANidine 4 MG TAB PO SCH (09:00)
[2020-07-22] MEDS ORDERED: rOPINIRole 1MG TAB PO SCH (09:00)
[2020-07-22] MEDS: ATORVASTATIN 20 MG TAB PO SCH (09:26)
[2020-07-22] MEDS: OMEPRAZOLE 20 MG CAP PO SCH (09:26)
[2020-07-22] MEDS: PRIMIDONE 50 MG TAB PO SCH ×2 (09:27→20:39)
[2020-07-22] MEDS: oxyBUTYnin *DITROPAN XL* 5 MG TABCR PO SCH (09:27)
[2020-07-22] MEDS: SPIRONOLACTONE 25 MG TAB PO SCH (09:27)
[2020-07-22] MEDS: ENOXAPARIN 40MG/0.4ML SYRINGE (J1650 PER 10MG) SC SCH (09:29)
[2020-07-22] MEDS ORDERED: OLANZapine INTRAMUSCULAR 10MG VIAL IM PRN (13:15)
[2020-07-22] MEDS: HALOPERIDOL 5MG/ML VIAL (J1630 PER 1) IV PRN ×2 (14:09→23:47)
[2020-07-22] MEDS: LORazepam 2 MG/ML VIAL IV PRN ×2 (15:17→20:39)
[2020-07-22 16:00] VITALS: BP 127/68
[2020-07-22 20:00] VITALS: BP 115/65
[2020-07-23] MEDS: IPRATROPIUM 0.5MG/ALBUTEROL 2.5MG INH SOL UD 3ML (DUONEB) NEB SCH ×4 (01:51→20:00)
[2020-07-23 04:00] VITALS: BP 129/71
[2020-07-23] MEDS: TIOTROPIUM INHALER/CAPSULE (SPIRIVA) INH SCH (08:00)
--- NOTE | 2020-07-23 08:09 | IPNPDOC ---
Text Note Date of Service The patient was seen on 07/22/20. NOTE Subjective: Pleasant this morning awake and alert and oriented to place, person , month and year got the date wrong. However later in the afternoon got very belligerent, aggressive and wanted to leave even on explaining that all her tests are not back she was insisting on leaving. Said that she is going to walk home. She was trying to pull her hong out, pulled her oxygen out. She was trying to rip off the IV so the nurses had to wrap it up tightly. Would not allow the IVF to be attached. Ultimately she had to be given haldol and ativan to calm her down. She also took a fall in the bathroom no injury noted. Physical Exam: Vials: As below GEN: slim build/ well developed INTEGUMENT: not flushed/ not jaundice HEENT: lips acyanotic /mucus membranes moist and pink CVS: normal rate rhythm, no rub/ murmur or gallop LUNGS: able to speak full sentences without stopping to take a breath / no coughing / lungs are clear to auscultation bilaterally on room air ABDOMEN: Contour (flat) , soft nontender, bowel sounds present. MSK/EXTREMITIES: NCAT / range of motion intact in all 4 extremities NEURO: speech is not dysarthric PSYCH: alert and oriented but there are gaps in memory which she is trying to fill up. ASSESSMENT and PLAN: Ms. Branham is a 64 yr old w a hx of COPD, HFpEF, PVD (on Plavix), Raynauds, RLS, Essential tremors, Depression / Anxiety & Peripheral polyneuropathy who was brought to the hospital for evaluation of abnormal behavior, specifically wandering around the streets with inappropriate clothing, and defecating in inappropriate places; she'll be admitted for evaluation of encephalopathy and management of mild rhabdomyolysis. Acute toxic metabolic Encephalopathy Cause TBD ? illicit drug use +/- medications Her son has been regulating her medications since the end of last month. He has taken away all medication bottles to his own home and brings her medications daily morning and night and leaves her mid day meds in a small pouch which she takes by herself. Her utox has been positive for barbiturates since the beginning of this month which is not her prescription. Discussed with Dr Morataya unlikely primary psychosis as they do not have confusion and gaps in memory of the episodes. He thinks its likely acute delirium due to some substance. CT head & TSH unrevealing Will get MRI of brain once patient is calmer. PCO2 is elevated on VBG with alkalosis sitter. Continue Haldol bid and haldol and ativan IV prn. will stop prednisone, will stop tizanidine, stop percocet. Mild Rhabdomyolysis Possibly 2/2 agitation IVF Metabolic alkalosis due to dehydration IVf hold torsemide. COPD with chronic hypoxic respiratory failure with hypercarbia. without any exacerbation symbicort, spiriva will not give any steroids continue home oxygen and try to wean Heavy smoker. HFpEF On torsemide will hold continue spironolactone PVD atorvastatin Raynauds Cardizem RLS ropinirole Essential tremors primidone Peripheral polyneuropathy gabapentin GERD omeprazole VS,Fishbone, I+O VS, Fishbone, I+O Laboratory Tests 07/21/20 21:02 07/21/20 21:03 07/22/20 04:54 07/22/20 04:55 Vital Signs Date Time Temp Pulse Resp B/P (MAP) Pulse Ox O2 Delivery O2 Flow Rate FiO2 07/22/20 09:28 128/75 07/22/20 08:00 97.4 82 20 93 Nasal Cannula 4.0 I&O- Last 24 Hours up to 6 AM 07/22/20 06:00 Intake Total 1000 ml Output Total 2350 ml Balance -1350 ml DON EPPS MD Jul 22, 2020 12:35
[2020-07-23] MEDS: haloperidoL 1 MG TAB PO SCH ×2 (09:49→20:01)
[2020-07-23] MEDS: PRIMIDONE 50 MG TAB PO SCH ×2 (09:49→21:00)
[2020-07-23] MEDS: ATORVASTATIN 20 MG TAB PO SCH (09:49)
[2020-07-23] MEDS: OMEPRAZOLE 20 MG CAP PO SCH (09:50)
[2020-07-23] MEDS: rOPINIRole 1MG TAB PO SCH ×3 (09:50→20:01)
[2020-07-23] MEDS: SPIRONOLACTONE 25 MG TAB PO SCH (09:50)
[2020-07-23] MEDS: GABAPENTIN 100 MG CAP PO SCH ×3 (09:50→20:01)
[2020-07-23] MEDS: oxyBUTYnin *DITROPAN XL* 5 MG TABCR PO SCH (09:50)
[2020-07-23] MEDS: ENOXAPARIN 40MG/0.4ML SYRINGE (J1650 PER 10MG) SC SCH (09:51)
--- NOTE | 2020-07-23 11:25 | REPVR ---
PROCEDURE INFORMATION: Exam: MR Head Without Contrast Exam date and time: 07/23/2020 10:55 AM Age: 64 years old Clinical indication: Altered mental status/memory loss; Confusion or disorientation; Additional info: AMS TECHNIQUE: Imaging protocol: MR of the head without contrast. COMPARISON: CT Head without contrast 07/21/2020 5:56 AM FINDINGS: Brain: There is moderate high signal abnormality in the periventricular white matter and centrum semiovale, best seen on the flair images. These changes are nonspecific but likely represent chronic small vessel ischemic change. There is moderate high signal abnormality throughout the amado. Differential diagnosis includes chronic ischemic changes, central pontine myelinolysis. There is moderate cerebral atrophy. Cerebral ventricles: Normal. No ventriculomegaly. Bones/joints: Unremarkable. Paranasal sinuses: Normal as visualized. No acute sinusitis. Mastoid air cells: Normal as visualized. No mastoid effusion. Orbits: Unremarkable. Soft tissues: Unremarkable. IMPRESSION: 1. There is moderate high signal abnormality in the periventricular white matter and centrum semiovale, best seen on the flair images. These changes are nonspecific but likely represent chronic small vessel ischemic change. No acute infarct is identified. 2. There is moderate high signal abnormality throughout the amado. Differential diagnosis includes chronic ischemic changes, central pontine myelinolysis. Please correlate clinically. There 3. There is moderate cerebral atrophy. Electronically signed by: Raman Arias On 07/23/2020 11:25:24 AM
--- NOTE | 2020-07-23 11:27 | IPNPDOC ---
Text Note Date of Service The patient was seen on 07/23/20. NOTE Subjective: Calm and quiet this morning. Pleasant . Does not remember me form yesterday. Sitting up having breakfast a little sleepy. In the earlier part of the night she was agitated and combative, opening her clothes to change into street clothes and wanted to leave. The nurse along with the sitter was at bed side. Needed ativan and haldol to calm her down. It took her about 2 hours to calm down. Then she slept most of the night. Physical Exam: Vials: As below GEN: slim build/ well developed INTEGUMENT: not flushed/ not jaundice HEENT: lips acyanotic /mucus membranes moist and pink CVS: normal rate rhythm, no rub/ murmur or gallop LUNGS: able to speak full sentences without stopping to take a breath / no coughing / lungs are clear to auscultation bilaterally on room air ABDOMEN: Contour (flat) , soft nontender, bowel sounds present. MSK/EXTREMITIES: NCAT / range of motion intact in all 4 extremities NEURO: speech is not dysarthric PSYCH: alert and oriented but there are gaps in memory which she is trying to fill up. ASSESSMENT and PLAN: Ms. Branham is a 64 yr old w a hx of COPD, HFpEF, PVD (on Plavix), Raynauds, RLS, Essential tremors, Depression / Anxiety & Peripheral polyneuropathy who was brought to the hospital for evaluation of abnormal behavior, specifically wandering around the streets with inappropriate clothing, and defecating in inappropriate places; she'll be admitted for evaluation of encephalopathy and management of mild rhabdomyolysis. Acute toxic metabolic Encephalopathy Cause TBD ? illicit drug use +/- medications Her son has been regulating her medications since the end of last month. He has taken away all medication bottles to his own home and brings her medications daily morning and night and leaves her mid day meds in a small pouch which she takes by herself. Her utox has been positive for barbiturates since the beginning of this month It was thought that is was being given by some one . But this is due to Primidone which is a barbiturate discussed with Neurology will Need LP and EEG. CSF will arsh to be sent for [facility] extended spectrum meningitis / encephalitis panel and 14-33 CJD protein. Discussed with Dr Morataya unlikely primary psychosis as they do not have confusion and gaps in memory of the episodes. He thinks its likely acute delirium due to some medical issue or substance. CT head & TSH unrevealing Will get MRI of brain once patient is calmer. sitter. Continue Haldol bid and Haldol and ativan IV prn. will stop prednisone, will stop tizanidine, stop percocet. Mild Rhabdomyolysis Possibly 2/2 agitation Metabolic alkalosis due to dehydration decrease torsemide. COPD with chronic hypoxic respiratory failure with hypercarbia. without any exacerbation symbicort, spiriva will not give any steroids continue home oxygen and try to wean Heavy smoker. HFpEF On torsemide will hold continue spironolactone PVD atorvastatin Raynauds Cardizem RLS ropinirole Essential tremors primidone Peripheral polyneuropathy gabapentin GERD omeprazole VS,Fishbone, I+O VS, Fishbone, I+O Vital Signs Date Time Temp Pulse Resp B/P (MAP) Pulse Ox O2 Delivery O2 Flow Rate FiO2 07/23/20 09:50 129/71 07/23/20 04:00 97.1 61 18 92 Nasal Cannula 4.0 I&O- Last 24 Hours up to 6 AM 07/23/20 06:00 Intake Total 2700 ml Output Total 3500 ml Balance -800 ml DON EPPS MD Jul 23, 2020 11:27
[2020-07-23 12:00] VITALS: BP 119/63
[2020-07-23] MEDS: HALOPERIDOL 5MG/ML VIAL (J1630 PER 1) IV PRN ×2 (14:28→21:02)
[2020-07-23] MEDS: LORazepam 2 MG/ML VIAL IV PRN ×2 (14:28→21:02)
[2020-07-23 15:25] VITALS: BP 113/76
[2020-07-23 22:00] VITALS: BP 115/72
[2020-07-24] MEDS: HALOPERIDOL 5MG/ML VIAL (J1630 PER 1) IV PRN (01:02)
[2020-07-24] MEDS: LORazepam 2 MG/ML VIAL IV PRN ×2 (01:02→17:28)
[2020-07-24 06:00] VITALS: BP 114/73
[2020-07-24 07:21] LABS: BASO # 0.1 10^3/uL (0.0-0.2); BASO % 0.6 % (0.0-1.0); EOS # 0.2 10^3/uL (0.0-0.5); HEMATOCRIT 45.1 % (36.0-47.0); LYMPH # 1.9 10^3/uL (1.5-5.0); LYMPH % 18.7 % (24.0-44.0); MEAN CORPUSCULAR HEMOGLOBIN 24.7 pg (27.0-33.0); MEAN CORPUSCULAR VOLUME 79.5 fl (80.0-96.0); MONO # 0.9 10^3/uL (0.0-0.8); MONO % 8.9 % (0.0-5.0); NEUTROPHILS # 7.2 10^3/uL (1.5-8.5); NEUTROPHILS % 69.5 % (36.0-66.0); PLATELET COUNT, AUTOMATED 225 10^3/uL (150-450); RED BLOOD COUNT 5.67 10^6/uL (4.00-5.40); WHITE BLOOD COUNT 10.4 10^3/uL (4.0-10.0)
[2020-07-24] MEDS: IPRATROPIUM 0.5MG/ALBUTEROL 2.5MG INH SOL UD 3ML (DUONEB) NEB SCH ×3 (07:33→19:23)
[2020-07-24] MEDS: TIOTROPIUM INHALER/CAPSULE (SPIRIVA) INH SCH (07:35)
[2020-07-24 07:47] LABS: BLOOD UREA NITROGEN 20 MG/DL (7-18); CALCIUM LEVEL 8.8 MG/DL (8.8-10.2); CARBON DIOXIDE LEVEL 32 MEQ/L (21-32); CHLORIDE LEVEL 103 MEQ/L (98-107); CREATININE FOR GFR 0.53 MG/DL (0.55-1.30); FERRITIN 105 NG/ML (8-252); GLOMERULAR FILTRATION RATE > 60.0 (>45); GLUCOSE, FASTING 82 MG/DL (70-100); IRON (FE) 91 UG/DL (50-170); PERCENT SATURATION 27.6 % (13.2-45.0); POTASSIUM SERUM 4.6 MEQ/L (3.5-5.1); SODIUM LEVEL 139 MEQ/L (136-145); TOTAL IRON BINDING CAPACITY 330 UG/DL (250-450)
[2020-07-24] MEDS: SPIRONOLACTONE 25 MG TAB PO SCH (08:41)
[2020-07-24] MEDS: TORSEMIDE (DEMADEX) 50 MG PER 1/2 TAB PO SCH (08:42)
[2020-07-24] MEDS: OMEPRAZOLE 20 MG CAP PO SCH (08:42)
[2020-07-24] MEDS: ATORVASTATIN 20 MG TAB PO SCH (08:43)
[2020-07-24] MEDS: oxyBUTYnin *DITROPAN XL* 5 MG TABCR PO SCH (08:43)
[2020-07-24] MEDS: rOPINIRole 0.25 MG TAB(REQUIP) PO SCH ×2 (08:43→11:18)
[2020-07-24] MEDS: PRIMIDONE 50 MG TAB PO SCH ×2 (08:44→21:41)
[2020-07-24] MEDS: haloperidoL 1 MG TAB PO SCH ×2 (08:45→20:22)
[2020-07-24] MEDS: GABAPENTIN 100 MG CAP PO SCH ×2 (08:46→21:41)
[2020-07-24] MEDS: ENOXAPARIN 40MG/0.4ML SYRINGE (J1650 PER 10MG) SC SCH (08:52)
[2020-07-24 10:18] LABS: VITAMIN B12 LEVEL 570 PG/ML (247-911)
[2020-07-24] MEDS: NICOTINE 21MG/24HR 1 EA TRANSDERMAL TD SCH (11:17)
[2020-07-24] MEDS: ACETAMINOPHEN TAB 650MG DOSE (2X325MG) PO PRN (11:18)
--- NOTE | 2020-07-24 12:38 | IPNPDOC ---
Text Note Date of Service The patient was seen on 07/24/20. NOTE Subjective: Calm and quiet this morning. Pleasant. She says she remembers me. I explained about EEG and LP. She says she does not need them and she does not believe me. I explained that we need to do the tests to find out what is wrong with her memory and why she is sometimes behaving abnormally. She then points to the side and says they are lying. ? hallucination ? pointing to the sitter. Seems guarded and paranoid. She says she will not believe anything until she talks with Neeraj. She wanted to see Neeraj in the room. When i explained about the visitation restriction she seems to understand it and was agreeable to talk to him over the phone. Will ask the nurse to connect her to Neeraj. Physical Exam: Vials: As below GEN: slim build/ well developed INTEGUMENT: not flushed/ not jaundice HEENT: lips acyanotic /mucus membranes moist and pink CVS: normal rate rhythm, no rub/ murmur or gallop LUNGS: able to speak full sentences without stopping to take a breath / no coughing / lungs are clear to auscultation bilaterally on room air ABDOMEN: Contour (flat) , soft nontender, bowel sounds present. MSK/EXTREMITIES: NCAT / range of motion intact in all 4 extremities NEURO: speech is not dysarthric , no myoclonus. PSYCH: alert and oriented but there are gaps in memory which she is trying to fill up. Paranoid. ASSESSMENT and PLAN: Ms. Branham is a 64 yr old w a hx of COPD, HFpEF, PVD (on Plavix), Raynauds, RLS, Essential tremors, Depression / Anxiety & Peripheral polyneuropathy who was brought to the hospital for evaluation of abnormal behavior, specifically wandering around the streets with inappropriate clothing, and defecating in inappropriate places; She was admitted for evaluation of encephalopathy and management of mild rhabdomyolysis. These episodes of abnormal behavior started suddenly for about a month. Before that she drove, took care of her shopping, bills. Though son Neeraj think she had been a little confused about her medications and may have been miss using some which he found out when he took over the charge of her medications int he end of june. Several times a week he would be called by neighbors as Genny would be seen walking up and down the street in the middle of the night. She would go knocking on the neighbors doors in the middle of the night. Acute toxic metabolic Encephalopathy Cause TBD ? illicit drug use +/- medications Her son has been regulating her medications since the end of last month. He has taken away all medication bottles to his own home and brings her medications daily morning and night and leaves her mid day meds in a small pouch which she takes by herself. Her utox has been positive for barbiturates since the beginning of this month It was thought that is was being given by some one . But this is due to Primidone which is a barbiturate discussed with Neurology will Need LP and EEG. CSF will need to be sent for [facility] extended spectrum meningitis / encephalitis panel and CJD protein. Discussed with Dr Morataya unlikely primary psychosis as they do not have confusion and gaps in memory of the episodes. He thinks its likely acute delirium due to some medical issue or substance. CT head & TSH unrevealing Will get MRI of brain once patient is calmer. sitter. Continue Haldol bid and Haldol and ativan IV prn. will stop prednisone, will stop tizanidine, stop percocet. Discussed with Dr Sims from anaesthesia and they will do it Mild Rhabdomyolysis Possibly 2/2 agitation Metabolic alkalosis due to dehydration decrease torsemide. COPD with chronic hypoxic respiratory failure with hypercarbia. Started on oxygen this month. without any exacerbation Symbicort, spiriva will not give any steroids continue home oxygen and try to wean Heavy smoker. HFpEF On torsemide will hold continue spironolactone PVD atorvastatin Raynauds Cardizem RLS ropinirole Essential tremors primidone Peripheral polyneuropathy gabapentin GERD omeprazole VS,Fishbone, I+O VS, Fishbone, I+O Laboratory Tests 07/24/20 06:33 Vital Signs Date Time Temp Pulse Resp B/P (MAP) Pulse Ox O2 Delivery O2 Flow Rate FiO2 07/24/20 09:00 3.0 07/24/20 06:00 98.8 78 17 114/73 (87) 95 Nasal Cannula I&O- Last 24 Hours up to 6 AM 07/24/20 07:00 Intake Total 1330 ml Output Total 1600 ml Balance -270 ml DON EPPS MD Jul 24, 2020 12:38
[2020-07-24 14:00] VITALS: BP 108/66
[2020-07-24 20:09] VITALS: BP 110/66
[2020-07-24] MEDS: rOPINIRole 1MG TAB PO SCH (21:41)
--- NOTE | 2020-07-24 21:54 | IPNPDOC ---
Text Note Date of Service The patient was seen on 07/24/20. NOTE LUMBAR PUNCTURE PROCEDURE NOTE: Indication: Metabolic encephalopathy Performing provider: Dr. Jean Baptiste Assisting: Dr. Santiago Myers PGY-III Consent: Consent for lumbar puncture was obtained from the patient prior to the procedure. Indication, risks and benefits were explained in detail. All questions were answered. Procedure Summary: A preprocedure timeout was performed. Sterile gloves were worn throughout the procedure. Patient was placed in an upright flexed position at the bedside. The area was cleaned and draped in the usual sterile fashion. Anesthesia was achieved with 1% lidocaine. 20-gauge spinal needle was placed in the L4-L5 Dunba r interspace and vlear colored spinal fluid was obtained by Dr. Funez. CSF was collected into 4 tubes and sent for testing by Dr. Jean Baptiste. The spinal needle was withdrawn and a sterile Band-Aid was placed over the puncture site. The patient did not have any immediate complications. Patient tolerated the procedure well with minimal EBM. VS,Fishbone, I+O VS, Fishbone, I+O Laboratory Tests 07/24/20 06:33 Vital Signs Date Time Temp Pulse Resp B/P (MAP) Pulse Ox O2 Delivery O2 Flow Rate FiO2 07/24/20 20:09 97.3 80 16 110/66 (81) 87 Nasal Cannula 3.0 I&O- Last 24 Hours up to 6 AM 07/24/20 06:00 Intake Total 1330 ml Output Total 1600 ml Balance -270 ml GME ATTESTATION GME ATTESTATION My faculty preceptor for this patient encounter was physically present during the encounter and was fully available. All aspects of the patient interview, examination, medical decision making process, and medical care plan development were reviewed and approved by the faculty preceptor. The faculty preceptor is aware and concurs with the plan as stated in the body of this note and will attest to such by his/her cosignature. JULIO BERNARD DO Jul 24, 2020 21:54
[2020-07-25] MEDS: IPRATROPIUM 0.5MG/ALBUTEROL 2.5MG INH SOL UD 3ML (DUONEB) NEB SCH ×4 (04:26→19:13)
[2020-07-25] MEDS: LORazepam 2 MG/ML VIAL IV PRN (05:34)
[2020-07-25 06:25] VITALS: BP 112/62
[2020-07-25] MEDS: TIOTROPIUM INHALER/CAPSULE (SPIRIVA) INH SCH (07:28)
[2020-07-25 07:36] LABS: BASO % 0.5 % (0.0-1.0); EOS # 0.2 10^3/uL (0.0-0.5); EOS % 1.9 % (0.0-3.0); HEMATOCRIT 44.1 % (36.0-47.0); HEMOGLOBIN 13.5 g/dl (12.0-15.5); LYMPH # 1.5 10^3/uL (1.5-5.0); LYMPH % 17.4 % (24.0-44.0); MEAN CORPUSCULAR HEMOGLOBIN 23.9 pg (27.0-33.0); MEAN CORPUSCULAR HGB CONC 30.6 g/dl (32.0-36.5); MEAN CORPUSCULAR VOLUME 78.1 fl (80.0-96.0); MONO # 0.9 10^3/uL (0.0-0.8); MONO % 10.5 % (0.0-5.0); NEUTROPHILS % 69.4 % (36.0-66.0); PLATELET COUNT, AUTOMATED 214 10^3/uL (150-450); RED BLOOD COUNT 5.65 10^6/uL (4.00-5.40); WHITE BLOOD COUNT 8.6 10^3/uL (4.0-10.0)
[2020-07-25 08:02] LABS: BLOOD UREA NITROGEN 21 MG/DL (7-18); CALCIUM LEVEL 8.7 MG/DL (8.8-10.2); CARBON DIOXIDE LEVEL 35 MEQ/L (21-32); CHLORIDE LEVEL 99 MEQ/L (98-107); GLOMERULAR FILTRATION RATE > 60.0 (>45); GLUCOSE, FASTING 83 MG/DL (70-100); POTASSIUM SERUM 4.1 MEQ/L (3.5-5.1); SODIUM LEVEL 140 MEQ/L (136-145)
[2020-07-25] MEDS: SPIRONOLACTONE 25 MG TAB PO SCH (08:31)
[2020-07-25] MEDS: rOPINIRole 0.25 MG TAB(REQUIP) PO SCH ×2 (08:31→12:00)
[2020-07-25] MEDS: oxyBUTYnin *DITROPAN XL* 5 MG TABCR PO SCH (08:31)
[2020-07-25] MEDS: NICOTINE 21MG/24HR 1 EA TRANSDERMAL TD SCH (08:31)
[2020-07-25] MEDS: GABAPENTIN 100 MG CAP PO SCH (08:32)
[2020-07-25] MEDS: PRIMIDONE 50 MG TAB PO SCH ×2 (08:32→20:12)
[2020-07-25] MEDS: ATORVASTATIN 20 MG TAB PO SCH (08:32)
[2020-07-25] MEDS: ACETAMINOPHEN TAB 650MG DOSE (2X325MG) PO PRN ×2 (08:32→14:16)
[2020-07-25] MEDS: TORSEMIDE (DEMADEX) 50 MG PER 1/2 TAB PO SCH (08:32)
[2020-07-25] MEDS: haloperidoL 1 MG TAB PO SCH ×3 (08:32→20:12)
[2020-07-25] MEDS: OMEPRAZOLE 20 MG CAP PO SCH (08:32)
[2020-07-25] MEDS: ENOXAPARIN 40MG/0.4ML SYRINGE (J1650 PER 10MG) SC SCH (09:41)
[2020-07-25] MEDS ORDERED: LORazepam 1 MG TAB PO STA (13:16)
[2020-07-25] MEDS ORDERED: LORazepam 2 MG/ML VIAL IM PRN (13:30)
[2020-07-25 14:00] VITALS: BP 110/63
[2020-07-25] MEDS ORDERED: HALOPERIDOL DECANOATE 100 MG/ML VIAL (J1631) IM PRN (14:00)
--- NOTE | 2020-07-25 14:41 | IPNPDOC ---
Text Note Date of Service The patient was seen on 07/25/20. NOTE Subjective: Patient was agitated in the morning, stated that she wanted to go home. I explained to herthat she is not safe at home but patient insisted that she needs to be at home. Objective: GENERAL APPEARANCE: In moderate distress HEENT: no scleral icterus, no JVD, EOMI CARDIOVASCULAR: S1S2 LUNGS: CTA ABDOMEN: soft & not tender w palpitation MUSCULOSKELETAL: no cyanosis, no swelling INTEGUMENT: no generalized palor NEUROLOGICAL: cranial nerve function from 2-12 intact intact, follows commands, speech not dysarthric Assessment and plan Patient 64 years old female with past medical history of COPD, HFpEF, PVD (on Plavix), Raynauds, RLS, Essential tremors, Depression / Anxiety & Peripheral polyneuropathy who was brought to the hospital for evaluation of abnormal behavior, specifically wandering around the streets with inappropriate clothing, and defecating in inappropriate places. These episodes of abnormal behavior started suddenly for about a month. Before that she drove, took care of her shopping, bills. Though son Neeraj think she had been a little confused about her medications and may have been miss using some which he found out when he took over the charge of her medications int he end of june. Several times a week he would be called by neighbors as Genyn would be seen walking up and down the street in the middle of the night. She would go knocking on the neighbors doors in the middle of the night Metabolic encephalopathy Secondary to possible polypharmacy, frontotemporal dementia, frontal encephalopathy, encephalitis Brain MRI showed: There is moderate high signal abnormality in the periventricular white matter and centrum semiovale, best seen on the flair images. These changes are nonspecific but likely represent chronic small vessel ischemic change. No acute infarct is identified Discussed with Dr Morataya unlikely primary psychosis as they do not have confusion and gaps in memory of the episodes. He thinks its likely acute delirium due to some medical issue or substance CT head & TSH unrevealing Await CSF analysis I decreased the dose of gabapentin and primidone. Primidone can be cause of confusion, agitation. Will taper down this primidone Mild Rhabdomyolysis Possibly 2/2 agitation Continue monitoring the kidney function COPD with chronic hypoxic respiratory failure with hypercarbia. Continue inhalers, continue oxygen HFpEF On torsemide will hold continue spironolactone PVD atorvastatin Raynauds Cardizem RLS ropinirole Essential tremors primidone taper down Peripheral polyneuropathy gabapentin GERD omeprazole VS,Fishbone, I+O VS, Fishbone, I+O Laboratory Tests 07/25/20 06:56 Vital Signs Date Time Temp Pulse Resp B/P (MAP) Pulse Ox O2 Delivery O2 Flow Rate FiO2 07/25/20 08:31 83 112/62 07/25/20 07:40 3.0 07/25/20 06:25 97.2 18 96 Nasal Cannula I&O- Last 24 Hours up to 6 AM 07/25/20 06:00 Intake Total 1740 ml Output Total 3275 ml Balance -1535 ml ARIEL SOLIS DO Jul 25, 2020 14:41
[2020-07-25] MEDS ORDERED: PILL CUTTER 1 EACH XX PRN (17:00)
[2020-07-25 20:00] VITALS: BP 108/63
[2020-07-25] MEDS: rOPINIRole 1MG TAB PO SCH (20:12)
[2020-07-26] MEDS: LORazepam 2 MG/ML VIAL IV PRN ×4 (00:54→16:07)
[2020-07-26] MEDS: IPRATROPIUM 0.5MG/ALBUTEROL 2.5MG INH SOL UD 3ML (DUONEB) NEB SCH ×4 (01:35→19:58)
[2020-07-26] MEDS: haloperidoL 1 MG TAB PO SCH ×4 (01:56→21:09)
[2020-07-26] MEDS: HALOPERIDOL 5MG/ML VIAL (J1630 PER 1) IV PRN ×3 (03:08→14:25)
[2020-07-26 06:00] VITALS: BP 118/81
[2020-07-26 06:38] LABS: BASO % 0.4 % (0.0-1.0); EOS # 0.2 10^3/uL (0.0-0.5); HEMATOCRIT 45.6 % (36.0-47.0); HEMOGLOBIN 13.8 g/dl (12.0-15.5); LYMPH # 1.4 10^3/uL (1.5-5.0); LYMPH % 13.3 % (24.0-44.0); MEAN CORPUSCULAR HEMOGLOBIN 23.8 pg (27.0-33.0); MEAN CORPUSCULAR HGB CONC 30.3 g/dl (32.0-36.5); MEAN CORPUSCULAR VOLUME 78.5 fl (80.0-96.0); MONO # 1.1 10^3/uL (0.0-0.8); MONO % 10.5 % (0.0-5.0); NEUTROPHILS # 7.5 10^3/uL (1.5-8.5); NEUTROPHILS % 73.3 % (36.0-66.0); PLATELET COUNT, AUTOMATED 202 10^3/uL (150-450); RED BLOOD COUNT 5.81 10^6/uL (4.00-5.40); WHITE BLOOD COUNT 10.3 10^3/uL (4.0-10.0)
[2020-07-26 07:03] LABS: BLOOD UREA NITROGEN 24 MG/DL (7-18); CALCIUM LEVEL 8.8 MG/DL (8.8-10.2); CARBON DIOXIDE LEVEL 36 MEQ/L (21-32); CHLORIDE LEVEL 97 MEQ/L (98-107); GLOMERULAR FILTRATION RATE > 60.0 (>45); GLUCOSE, FASTING 109 MG/DL (70-100); POTASSIUM SERUM 4.4 MEQ/L (3.5-5.1); SODIUM LEVEL 138 MEQ/L (136-145)
[2020-07-26] MEDS: TIOTROPIUM INHALER/CAPSULE (SPIRIVA) INH SCH (07:20)
[2020-07-26] MEDS: NICOTINE 21MG/24HR 1 EA TRANSDERMAL TD SCH (07:46)
[2020-07-26] MEDS: oxyBUTYnin *DITROPAN XL* 5 MG TABCR PO SCH (07:47)
[2020-07-26] MEDS: SPIRONOLACTONE 25 MG TAB PO SCH (07:47)
[2020-07-26] MEDS: ATORVASTATIN 20 MG TAB PO SCH (07:47)
[2020-07-26] MEDS: GABAPENTIN 100 MG CAP PO SCH (07:47)
[2020-07-26] MEDS: PRIMIDONE 50 MG TAB PO SCH ×2 (07:47→21:10)
[2020-07-26] MEDS: rOPINIRole 0.25 MG TAB(REQUIP) PO SCH ×2 (07:48→12:20)
[2020-07-26] MEDS: TORSEMIDE (DEMADEX) 50 MG PER 1/2 TAB PO SCH (07:48)
[2020-07-26] MEDS: OMEPRAZOLE 20 MG CAP PO SCH (07:48)
[2020-07-26] MEDS: ENOXAPARIN 40MG/0.4ML SYRINGE (J1650 PER 10MG) SC SCH (07:55)
--- NOTE | 2020-07-26 12:40 | IPNPDOC ---
Text Note Date of Service The patient was seen on 07/26/20. NOTE Subjective: Patient doing better today, she is alert, oriented, not agitated Objective: GENERAL APPEARANCE: In moderate distress HEENT: no scleral icterus, no JVD, EOMI CARDIOVASCULAR: S1S2 LUNGS: CTA ABDOMEN: soft & not tender w palpitation MUSCULOSKELETAL: no cyanosis, no swelling INTEGUMENT: no generalized palor NEUROLOGICAL: cranial nerve function from 2-12 intact intact, follows commands, speech not dysarthric Assessment and plan Patient 64 years old female with past medical history of COPD, HFpEF, PVD (on Plavix), Raynauds, RLS, Essential tremors, Depression / Anxiety & Peripheral polyneuropathy who was brought to the hospital for evaluation of abnormal behav ior, specifically wandering around the streets with inappropriate clothing, and defecating in inappropriate places. These episodes of abnormal behavior started suddenly for about a month. Before that she drove, took care of her shopping, bills. Though son Neeraj think she had been a little confused about her medications and may have been miss using some which he found out when he took over the charge of her medications int he end of june. Several times a week he would be called by neighbors as Genny would be seen walking up and down the street in the middle of the night. She would go knocking on the neighbors doors in the middle of the night Metabolic encephalopathy Secondary to possible polypharmacy, frontotemporal dementia, frontal encephalopathy, encephalitis Brain MRI showed: There is moderate high signal abnormality in the periventricular white matter and centrum semiovale, best seen on the flair images. These changes are nonspecific but likely represent chronic small vessel ischemic change. No acute infarct is identified Discussed with Dr Morataya unlikely primary psychosis as they do not have confusion and gaps in memory of the episodes. He thinks its likely acute delirium due to some medical issue or substance CT head & TSH unrevealing CSF analysis wnl Will proceed with EEG I decreased the dose of gabapentin and primidone. Primidone can be cause of confusion, agitation. Will taper down this primidone Mild Rhabdomyolysis Possibly 2/2 agitation Continue monitoring the kidney function COPD with chronic hypoxic respiratory failure with hypercarbia. Continue inhalers, continue oxygen HFpEF Not in acute exacerbation Continue home cardioprotective medications PVD atorvastatin Raynauds Cardizem RLS ropinirole Essential tremors primidone taper down Peripheral polyneuropathy gabapentin GERD omeprazole VS,Fishbone, I+O VS, Fishbone, I+O Laboratory Tests 07/26/20 05:34 Vital Signs Date Time Temp Pulse Resp B/P (MAP) Pulse Ox O2 Delivery O2 Flow Rate FiO2 07/26/20 07:48 96 118/81 07/26/20 06:00 97.2 16 92 Room Air 07/25/20 21:00 4.0 I&O- Last 24 Hours up to 6 AM 07/26/20 06:00 Intake Total 3660 ml Output Total 2050 ml Balance 1610 ml ARIEL SOLIS DO Jul 26, 2020 12:40
[2020-07-26] MEDS: ACETAMINOPHEN TAB 650MG DOSE (2X325MG) PO PRN (13:54)
[2020-07-26 14:00] VITALS: BP 120/66
[2020-07-26] MEDS ORDERED: MIRALAX *UNIT DOSE* 17GM PACKET PO PRN (15:00)
[2020-07-26] MEDS ORDERED: rOPINIRole 0.25 MG TAB(REQUIP) PO ONE (16:45)
[2020-07-26] MEDS: rOPINIRole 1MG TAB PO SCH (21:09)
[2020-07-26 22:00] VITALS: BP 120/67
[2020-07-27] MEDS: LORazepam 2 MG/ML VIAL IV PRN (01:28)
[2020-07-27] MEDS: haloperidoL 1 MG TAB PO SCH ×2 (01:33→08:45)
[2020-07-27] MEDS: IPRATROPIUM 0.5MG/ALBUTEROL 2.5MG INH SOL UD 3ML (DUONEB) NEB SCH ×4 (02:00→19:32)
[2020-07-27] MEDS: ACETAMINOPHEN TAB 650MG DOSE (2X325MG) PO PRN ×2 (04:30→14:46)
[2020-07-27 06:15] VITALS: BP 118/68
[2020-07-27 07:16] LABS: BASO % 0.4 % (0.0-1.0); EOS # 0.2 10^3/uL (0.0-0.5); EOS % 2.5 % (0.0-3.0); HEMATOCRIT 46.5 % (36.0-47.0); HEMOGLOBIN 14.2 g/dl (12.0-15.5); LYMPH # 1.4 10^3/uL (1.5-5.0); LYMPH % 14.5 % (24.0-44.0); MEAN CORPUSCULAR HEMOGLOBIN 23.8 pg (27.0-33.0); MEAN CORPUSCULAR HGB CONC 30.5 g/dl (32.0-36.5); MEAN CORPUSCULAR VOLUME 77.9 fl (80.0-96.0); MONO % 10.8 % (0.0-5.0); NEUTROPHILS # 6.7 10^3/uL (1.5-8.5); NEUTROPHILS % 71.5 % (36.0-66.0); PLATELET COUNT, AUTOMATED 208 10^3/uL (150-450); RED BLOOD COUNT 5.97 10^6/uL (4.00-5.40); WHITE BLOOD COUNT 9.4 10^3/uL (4.0-10.0)
[2020-07-27] MEDS: TIOTROPIUM INHALER/CAPSULE (SPIRIVA) INH SCH (07:24)
[2020-07-27 07:31] LABS: BLOOD UREA NITROGEN 20 MG/DL (7-18); CARBON DIOXIDE LEVEL 31 MEQ/L (21-32); CHLORIDE LEVEL 100 MEQ/L (98-107); GLOMERULAR FILTRATION RATE > 60.0 (>45); GLUCOSE, FASTING 106 MG/DL (70-100); POTASSIUM SERUM 4.8 MEQ/L (3.5-5.1); SODIUM LEVEL 137 MEQ/L (136-145)
[2020-07-27] MEDS: NICOTINE 21MG/24HR 1 EA TRANSDERMAL TD SCH (08:41)
[2020-07-27] MEDS: TORSEMIDE (DEMADEX) 50 MG PER 1/2 TAB PO SCH (08:42)
[2020-07-27] MEDS: PRIMIDONE 50 MG TAB PO SCH ×2 (08:42→20:30)
[2020-07-27] MEDS: rOPINIRole 0.25 MG TAB(REQUIP) PO SCH ×2 (08:44→11:56)
[2020-07-27] MEDS: GABAPENTIN 100 MG CAP PO SCH (08:45)
[2020-07-27] MEDS: oxyBUTYnin *DITROPAN XL* 5 MG TABCR PO SCH (08:46)
[2020-07-27] MEDS: OMEPRAZOLE 20 MG CAP PO SCH (08:46)
[2020-07-27] MEDS: ATORVASTATIN 20 MG TAB PO SCH (08:46)
[2020-07-27] MEDS: ENOXAPARIN 40MG/0.4ML SYRINGE (J1650 PER 10MG) SC SCH (08:47)
[2020-07-27] MEDS: SPIRONOLACTONE 25 MG TAB PO SCH (08:47)
--- NOTE | 2020-07-27 11:35 | IPNPDOC ---
Text Note Date of Service The patient was seen on 07/27/20. NOTE Subjective: No any acute events overnight. Patient complains of constipation. Patient alert, awake, oriented Objective: GENERAL APPEARANCE: In moderate distress HEENT: no scleral icterus, no JVD, EOMI CARDIOVASCULAR: S1S2 LUNGS: CTA ABDOMEN: soft & not tender w palpitation MUSCULOSKELETAL: no cyanosis, no swelling INTEGUMENT: no generalized palor NEUROLOGICAL: cranial nerve function from 2-12 intact intact, follows commands, speech not dysarthric Assessment and plan Patient 64 years old female with past medical history of COPD, HFpEF, PVD (on Plavix), Raynauds, RLS, Essential tremors, Depression / Anxiety & Peripheral polyneuropathy who was brought to the hospital for evaluation of abnormal behavior, specifically wandering around the streets with inappropriate clothing, and defecating in inappropriate places. These episodes of abnormal behavior started suddenly for about a month. Before that she drove, took care of her shopping, bills. Though son Neeraj think she had been a little confused about her medications and may have been miss using some which he found out when he took over the charge of her medications int he end of june. Several times a week he would be called by neighbors as Genny would be seen walking up and down the street in the middle of the night. She would go knocking on the neighbors doors in the middle of the night Metabolic encephalopathy Secondary to possible polypharmacy, frontotemporal dementia, frontal encephalopathy, encephalitis Brain MRI showed: There is moderate high signal abnormality in the periventricular white matter and centrum semiovale, best seen on the flair images. These changes are nonspecific but likely represent chronic small vessel ischemic change. No acute infarct is identified Discussed with Dr Morataya unlikely primary psychosis as they do not have confusion and gaps in memory of the episodes. He thinks its likely acute delirium due to some medical issue or substance CT head & TSH unrevealing CSF analysis wnl EEG within normal limit I decreased the dose of gabapentin and primidone. Primidone can be cause of confusion, agitation. Will taper down this primidone I talked to Dr. Olguin, he thinks most likely patient developed metabolic encephalopathy secondary to polypharmacy Mild Rhabdomyolysis Possibly 2/2 agitation Continue monitoring the kidney function COPD with chronic hypoxic respiratory failure with hypercarbia. Continue inhalers, continue oxygen HFpEF Not in acute exacerbation Continue home cardioprotective medications PVD atorvastatin Raynauds Cardizem RLS ropinirole Essential tremors primidone taper down Peripheral polyneuropathy gabapentin GERD omeprazole Constipation MiraLAX VS,Fishbone, I+O VS, Fishbone, I+O Laboratory Tests 07/27/20 06:41 Vital Signs Date Time Temp Pulse Resp B/P (MAP) Pulse Ox O2 Delivery O2 Flow Rate FiO2 07/27/20 08:42 71 118/68 07/27/20 06:15 96.1 18 95 Nasal Cannula 2.0 I&O- Last 24 Hours up to 6 AM 07/27/20 06:00 Intake Total 4040 ml Output Total 4500 ml Balance -460 ml ARIEL SOLIS DO Jul 27, 2020 11:34
[2020-07-27] MEDS ORDERED: BISACODYL 5 MG TAB PO ONE (11:45)
[2020-07-27] MEDS ORDERED: QUEtiapine FUMARATE 12.5 MG HALF-TAB PO ONE (12:15)
[2020-07-27 14:00] VITALS: BP 116/69
[2020-07-27] MEDS: KETOROLAC TROMETHAMINE 10 MG TAB PO PRN (17:41)
[2020-07-27] MEDS: rOPINIRole 1MG TAB PO SCH (20:29)
[2020-07-27 22:00] VITALS: BP 111/69
[2020-07-28] MEDS: IPRATROPIUM 0.5MG/ALBUTEROL 2.5MG INH SOL UD 3ML (DUONEB) NEB SCH ×3 (02:00→15:00)
[2020-07-28] MEDS: KETOROLAC TROMETHAMINE 10 MG TAB PO PRN ×2 (03:20→09:36)
[2020-07-28 06:00] VITALS: BP 113/67
[2020-07-28 07:14] LABS: BASO # 0.1 10^3/uL (0.0-0.2); BASO % 0.7 % (0.0-1.0); EOS # 0.2 10^3/uL (0.0-0.5); EOS % 2.5 % (0.0-3.0); HEMATOCRIT 46.6 % (36.0-47.0); HEMOGLOBIN 14.9 g/dl (12.0-15.5); LYMPH # 1.7 10^3/uL (1.5-5.0); LYMPH % 18.1 % (24.0-44.0); MEAN CORPUSCULAR HEMOGLOBIN 24.8 pg (27.0-33.0); MEAN CORPUSCULAR VOLUME 77.7 fl (80.0-96.0); MONO % 11.2 % (0.0-5.0); NEUTROPHILS # 6.1 10^3/uL (1.5-8.5); PLATELET COUNT, AUTOMATED 197 10^3/uL (150-450); WHITE BLOOD COUNT 9.2 10^3/uL (4.0-10.0)
[2020-07-28] MEDS: ACETAMINOPHEN TAB 650MG DOSE (2X325MG) PO PRN (07:19)
[2020-07-28 07:20] LABS: BLOOD UREA NITROGEN 26 MG/DL (7-18); CALCIUM LEVEL 9.1 MG/DL (8.8-10.2); CARBON DIOXIDE LEVEL 29 MEQ/L (21-32); CHLORIDE LEVEL 101 MEQ/L (98-107); CREATININE FOR GFR 0.77 MG/DL (0.55-1.30); GLOMERULAR FILTRATION RATE > 60.0 (>45); GLUCOSE, FASTING 104 MG/DL (70-100); POTASSIUM SERUM 4.7 MEQ/L (3.5-5.1); SODIUM LEVEL 138 MEQ/L (136-145)
[2020-07-28] MEDS: TIOTROPIUM INHALER/CAPSULE (SPIRIVA) INH SCH (08:00)
[2020-07-28] MEDS ORDERED: BISACODYL 5 MG TAB PO PRN (09:00)
--- NOTE | 2020-07-28 09:34 | EEG ---
ELECTROENCEPHALOGRAM DIAGNOSIS: Altered mental status. EEG# [id number] REFERRING PHYSICIAN: Raven Jean Baptiste MD HISTORY: Patient is a 64-year-old woman who was admitted at [facility] due to altered mental status and prolonged confusion. This EEG was done to rule out epileptic potential. She is currently taking primidone, Requip, Haldol, Ativan, Oxybutynin, torsemide, diltiazem, gabapentin, etc. TECHNICAL DESCRIPTION: This digital EEG was recorded by 21-scalp, ear, and two EKG electrodes and was reviewed in bipolar and referential montages following reformatting in 10-20 international electrode placement system. INTERPRETATION: Patient was noted to be in awake and drowsy states during this EEG. Resting and awake background rhythm consisted of 9 Hz alpha activity measuring 15-40 microvolts in amplitude, which was symmetric and reactive to eye opening. Attenuation of posterior dominant rhythm was seen during transition into drowsiness. Stage 1 and 2 sleep were reviewed and were symmetric bilaterally. Hyperventilation could not be performed. Photic stimulation remained unremarkable. EKG revealed normal sinus rhythm. No focal, lateralizing, or epileptiform abnormalities were seen. No relevant clinical activity was noted. CONCLUSION: This EEG in awake, drowsy states, stage 1 and 2 sleep is within normal limits.
[2020-07-28] MEDS: oxyBUTYnin *DITROPAN XL* 5 MG TABCR PO SCH (09:37)
[2020-07-28] MEDS: rOPINIRole 0.25 MG TAB(REQUIP) PO SCH ×2 (09:37→12:05)
[2020-07-28] MEDS: GABAPENTIN 100 MG CAP PO SCH (09:37)
[2020-07-28] MEDS: TORSEMIDE (DEMADEX) 50 MG PER 1/2 TAB PO SCH (09:37)
[2020-07-28] MEDS: OMEPRAZOLE 20 MG CAP PO SCH (09:38)
[2020-07-28] MEDS: SPIRONOLACTONE 25 MG TAB PO SCH (09:39)
[2020-07-28] MEDS: PRIMIDONE 50 MG TAB PO SCH (09:39)
[2020-07-28] MEDS: ATORVASTATIN 20 MG TAB PO SCH (09:40)
[2020-07-28 09:41] VITALS: BP 113/67
[2020-07-28] MEDS: NICOTINE 21MG/24HR 1 EA TRANSDERMAL TD SCH (09:41)
[2020-07-28] MEDS: ENOXAPARIN 40MG/0.4ML SYRINGE (J1650 PER 10MG) SC SCH (09:41)
--- NOTE | 2020-07-28 10:21 | CR ---
CONSULTATION REFERRING PHYSICIAN: Raven Jean Baptiste MD. REASON FOR CONSULTATION: Altered mental status. HISTORY OF PRESENT ILLNESS: Genny Branham is a 64-year-old woman who had four visits to the emergency department since 07/04/2020, for evaluation of confusion. The day before this admission, the patient was walking around outside on the streets on cold nights with inadequate clothes. The plan was to admit her for altered mental status, but she signed against medical advice prior to being admitted. After she left, police officers found her wondering on streets and took her home. Her son noted that she walked to the kitchen and defecated on the floor. She then proceeded to take off her clothes and begin walking around outside without any clothing. Police officers escorted her back to the emergency department. At the time of her evaluation, the patient did not remember much of the events and declined answering questions of admitting physician. I saw her five days after her admission and the patient stated that she does not know when and why she came to the hospital. She has a history of chronic neck and back pain and has restless legs. She also has a history of essential tremor. She has been taking stable dose of Ropinirole and primidone for a long time. The patient states that she has a marijuana license, but she has not used it in a long time. She denies any headaches, dysphagia, dysarthria, diplopia, urinary incontinence, loss of consciousness, falls, or injuries. She wants to go home and asked me a few times if I can make that happen. PAST MEDICAL HISTORY: 1. COPD. 2. Peripheral arterial disease. 3. Restless leg syndrome. 4. Essential tremor. 5. Raynaud's disease. 6. Depression and anxiety. 7. Peripheral neuropathy. 8. Bilateral carotid endarterectomy in 2017. 9. Tonsillectomy. 10. Colonoscopy. SOCIAL HISTORY: She smokes tobacco and has used marijuana, but states that she has not used it in a long time, but denies any other illicit drugs or alcohol abuse. FAMILY HISTORY: Father had colon cancer. ALLERGIES: SULFA. HOME MEDICATIONS: - Lipitor 40 mg p.o. daily - diltiazem extended release 120 mg p.o. daily - gabapentin 200 mg p.o. three times daily - Haldol 0.5 mg p.o. b.i.d. - omeprazole 20 mg p.o. daily - Oxybutynin 10 mg p.o. daily - prednisone 10 mg tapering dose - primidone 100 mg p.o. b.i.d., but it was reduced to 25/50 mg during this hospital admission. - Ropinirole 1 mg p.o. b.i.d. and 2 mg p.o. at bedtime, which was reduced to 0.5 mg p.o. b.i.d. and 2 mg p.o. at bedtime. - spironolactone 25 mg p.o. daily. - Spiriva inhalation - tizanidine - torsemide - Symbicort inhaler - vitamin D2 REVIEW OF SYSTEMS: All systems were reviewed and found to be non-contributory, except as mentioned in the History of Present Illness. PHYSICAL EXAMINATION: VITAL SIGNS: Temperature 96, blood pressure 118/81, 92% saturations on nasal cannula oxygen, respiratory rate 16. HEENT: Regular rate and rhythm. LUNGS: Clear to auscultation. ABDOMEN: Soft, nontender, and nondistended. No pedal edema. MUSCULOSKELETAL: No musculoskeletal abnormalities. No rash. NEUROLOGIC: The patient is slightly drowsy. She received a dose of Haldol and Ativan earlier in the afternoon. She is arousable. Oriented to month, year, name of hospital, city, state, country, president. She states that she has no idea what is the actual date and day of week today. She has been in the hospital for five days. Normal speech, comprehension, and repetition. Extraocular muscles are intact. No facial weakness. Tongue and uvula are midline. 5/5 strength in the all of her extremities. Normal sensation throughout. Deep tendon reflexes are 1+ throughout. Gait was not tested. DIAGNOSTIC STUDIES: MRI scan of the brain was reviewed and showed small vessel ischemic disease of the brain affecting brain stem and deep cerebral white matter with minimal-mild atrophy. Her spinal tap was normal with WBCs 3 and RBCs 1580, which reduced to 4 in tube two. Urine toxicology screen was positive for barbiturates, likely due to her primidone use, and positive for benzodiazepines. Her vitamin B12 was 570. TSH 2.9, thyroid peroxidase antibody was 38. Platelet count was 260,000, WBC 12.7, hemoglobin 14.9. ASSESSMENT: 1. Altered mental status possibly related to drug use or medications. 2. History of restless leg syndrome and essential tremor. PLAN: 1. EEG. 2. Her Ropinirole dose has been reduced to 0.5 mg b.i.d. and 2 mg p.o. at bedtime. 3. Primidone dose has been reduced to 25/50 p.o. daily. 4. Follow with our office in one to two weeks after hospital discharge.
--- NOTE | 2020-07-28 11:20 | IPNPDOC ---
Text Note Date of Service The patient was seen on 07/28/20. NOTE Subjective: No any acute events overnight. Patient denies fever, chills, nausea, vomiting or diarrhea dysuria Objective: GENERAL APPEARANCE: In moderate distress HEENT: no scleral icterus, no JVD, EOMI CARDIOVASCULAR: S1S2 LUNGS: CTA ABDOMEN: soft & not tender w palpitation MUSCULOSKELETAL: no cyanosis, no swelling INTEGUMENT: no generalized palor NEUROLOGICAL: cranial nerve function from 2-12 intact intact, follows commands, speech not dysarthric Assessment and plan Patient 64 years old female with past medical history of COPD, HFpEF, PVD (on Plavix), Raynauds, RLS, Essential tremors, Depression / Anxiety & Peripheral polyneuropathy who was brought to the hospital for evaluation of abnormal behavior, specifically wandering around the streets with inappropriate clothing, and defecating in inappropriate places. These episodes of abnormal behavior started suddenly for about a month. Before that she drove, took care of her shopping, bills. Though son Neeraj think she had been a little confused about her medications and may have been miss using some which he found out when he took over the charge of her medications int he end of june. Several times a week h e would be called by neighbors as Genny would be seen walking up and down the street in the middle of the night. She would go knocking on the neighbors doors in the middle of the night Metabolic encephalopathy Secondary to possible polypharmacy, frontotemporal dementia, frontal encephalopathy, encephalitis Brain MRI showed: There is moderate high signal abnormality in the periventricular white matter and centrum semiovale, best seen on the flair images. These changes are nonspecific but likely represent chronic small vessel ischemic change. No acute infarct is identified Discussed with Dr Morataya unlikely primary psychosis as they do not have confusion and gaps in memory of the episodes. He thinks its likely acute delirium due to some medical issue or substance CT head & TSH unrevealing CSF analysis wnl EEG within normal limit I decreased the dose of gabapentin and primidone. Primidone can be cause of confusion, agitation. Will taper down this primidone I talked to Dr. Olguin, he thinks most likely patient developed metabolic encephalopathy secondary to polypharmacy. Dose of ropinirole was reduced Mild Rhabdomyolysis Possibly 2/2 agitation Continue monitoring the kidney function COPD with chronic hypoxic respiratory failure with hypercarbia. Continue inhalers, continue oxygen HFpEF Not in acute exacerbation Continue home cardioprotective medications PVD atorvastatin Raynauds Cardizem RLS ropinirole Essential tremors primidone taper down Peripheral polyneuropathy gabapentin GERD omeprazole Constipation MiraLAX VS,Fishbone, I+O VS, Fishbone, I+O Laboratory Tests 07/28/20 06:15 Vital Signs Date Time Temp Pulse Resp B/P (MAP) Pulse Ox O2 Delivery O2 Flow Rate FiO2 07/28/20 09:41 90 113/67 07/28/20 06:00 98.0 18 93 Room Air 07/27/20 22:00 2.0 I&O- Last 24 Hours up to 6 AM 07/28/20 06:00 Intake Total 1500 ml Output Total 2800 ml Balance -1300 ml ARIEL SOLIS DO Jul 28, 2020 11:20
[2020-07-28] MEDS ORDERED: REQU1TAB14 PO (14:16)
[2020-07-28] MEDS ORDERED: GABA-1171 PO (14:16)
[2020-07-28] MEDS ORDERED: MYSO50TA5 PO ×2 (14:16)
[2020-07-28] MEDS ORDERED: ROPI1TAB3 PO (14:16)
[2020-07-28] MEDS ORDERED: TORS100T PO (14:16)
--- NOTE | 2020-07-28 14:21 | DS.PDOC ---
Discharge Summary General Date of Admission Jul 21, 2020 at 22:43 Date of Discharge 03/27/20 Discharge Summary PROCEDURES PERFORMED DURING STAY: [None]. ADMITTING DIAGNOSES: Metabolic encephalopathy COPD with chronic hypoxic respiratory failure with hypercarbia Mild Rhabdomyolysis HFpEF PVD Essential tremors Peripheral polyneuropathy GERD Constipation DISCHARGE DIAGNOSES: Metabolic encephalopathy COPD with chronic hypoxic respiratory failure with hypercarbia Mild Rhabdomyolysis HFpEF PVD Essential tremors Peripheral polyneuropathy GERD Constipation COMPLICATIONS/CHIEF COMPLAINT: Metabolic Encephalopathy. HISTORY OF PRESENT ILLNESS: Patient 64 years old female with past medical history of COPD, HFpEF, PVD (on Plavix), Raynauds, RLS, Essential tremors, Depression / Anxiety & Peripheral polyneuropathy who was brought to the hospital for evaluation of abnormal behavior, specifically wandering around the streets with inappropriate clothing, and defecating in inappropriate places. These episodes of abnormal behavior started suddenly for about a month. Before that she drove, took care of her shopping, bills. Though son Neeraj think she had been a little confused about her medications and may have been miss using some which he found out when he took over the charge of her medications int he end of june. Several times a week he would be called by neighbors as Genny would be seen walking up and down the street in the middle of the night. She would go knocking on the neighbors doors in the middle of the night HOSPITAL COURSE: Metabolic encephalopathy Secondary to possible polypharmacy, frontotemporal dementia, frontal encephalopathy, encephalitis Brain MRI showed: There is moderate high signal abnormality in the periventricular white matter and centrum semiovale, best seen on the flair images. These changes are nonspecific but likely represent chronic small vessel ischemic change. No acute infarct is identified Discussed with Dr Morataya unlikely primary psychosis as they do not have confusion and gaps in memory of the episodes. He thinks its likely acute delirium due to some medical issue or substance CT head & TSH unrevealing CSF analysis wnl EEG within normal limit I decreased the dose of gabapentin and primidone. Primidone can be cause of confusion, agitation. Will taper down this primidone I talked to Dr. Olguin, he thinks most likely patient developed metabolic encephalopathy secondary to polypharmacy. Dose of ropinirole was reduced Mild Rhabdomyolysis Possibly 2/2 agitation Continue monitoring the kidney function COPD with chronic hypoxic respiratory failure with hypercarbia. Continue inhalers, continue oxygen HFpEF Not in acute exacerbation Continue home cardioprotective medications PVD atorvastatin Raynauds Cardizem RLS ropinirole Essential tremors primidone taper down Peripheral polyneuropathy gabapentin GERD omeprazole Constipation MiraLAX DISCHARGE MEDICATIONS: Please see below. ALLERGIES: Please see below. PHYSICAL EXAMINATION ON DISCHARGE: VITAL SIGNS: Please see below. GENERAL APPEARANCE: In moderate distress HEENT: no scleral icterus, no JVD, EOMI CARDIOVASCULAR: S1S2 LUNGS: CTA ABDOMEN: soft & not tender w palpitation MUSCULOSKELETAL: no cyanosis, no swelling INTEGUMENT: no generalized palor NEUROLOGICAL: cranial nerve function from 2-12 intact intact, follows commands, speech not dysarthric LABORATORY DATA: Please see below. IMAGING: [facility] NAME: GENNY SANDY DATE OF : 1955 BUSINESS NUMBER: [id number] AGE: 64 SEX: F REPORT #: [id number] ROOM: [facility] TECHNOLOGIST: [place] [id number] DOCTOR: DON EPPS MD Ordered for Date&Time: 07/23/20 1335 cc: [~ rep ct ivnm] Service Date&Time: 07/23/20 1055 This report is in Signed status. Interpretation performed by [facility]. Thank you for having your radiology procedures performed at [facility] RADIOLOGY REPORT Date&Time printed: [~ rep prt dt last] [~ rep prt tm last] Page 2 of 2 [place] [id number] RADIOLOGY REPORT This report is in Signed status. Interpretation performed by [facility]. Thank you for having your radiology procedures performed at [facility] RADIOLOGY REPORT Date&Time printed: [~ rep prt dt last] [~ rep prt tm last] Page 1 of 1 PROCEDURE INFORMATION: Exam: MR Head Without Contrast Exam date and time: 07/23/2020 10:55 AM Age: 64 years old Clinical indication: Altered mental status/memory loss; Confusion or disorientation; Additional info: AMS TECHNIQUE: Imaging protocol: MR of the head without contrast. COMPARISON: CT Head without contrast 07/21/2020 5:56 AM FINDINGS: Brain: There is moderate high signal abnormality in the periventricular white matter and centrum semiovale, best seen on the flair images. These changes are nonspecific but likely represent chronic small vessel ischemic change. There is moderate high signal abnormality throughout the amado. Differential diagnosis includes chronic ischemic changes, central pontine myelinolysis. There is moderate cerebral atrophy. Cerebral ventricles: Normal. No ventriculomegaly. Bones/joints: Unremarkable. Paranasal sinuses: Normal as visualized. No acute sinusitis. Mastoid air cells: Normal as visualized. No mastoid effusion. Orbits: Unremarkable. Soft tissues: Unremarkable. IMPRESSION: 1. There is moderate high signal abnormality in the periventricular white matter and centrum semiovale, best seen on the flair images. These changes are nonspecific but likely represent chronic small vessel ischemic change. No acute infarct is identified. 2. There is moderate high signal abnormality throughout the amado. Differential diagnosis includes chronic ischemic changes, central pontine myelinolysis. Please correlate clinically. There 3. There is moderate cerebral atrophy. Electronically signed by: Raman Arias On 07/23/2020 11:25:24 AM DD: RAMAN ARIAS MD 07/23/20 1055 DT: DARREN 07/23/20 1125 DS: TYLER 07/23/20 1125 [~ rep ct labl] PROGNOSIS: Fair ACTIVITY: [As tolerated]. DIET: Regular DISCHARGE PLAN: Home with home health ITEMS TO FOLLOWUP ON ON OUTPATIENT: Follow-up with psychiatrist, neurologist and PCP DISCHARGE CONDITION: [Stable]. TIME SPENT ON DISCHARGE: Greater than 40 minutes. Vital Signs/I&Os Vital Signs Date Time Temp Pulse Resp B/P (MAP) Pulse Ox O2 Delivery O2 Flow Rate FiO2 07/28/20 09:41 90 113/67 07/28/20 06:00 98.0 18 93 Room Air 07/27/20 22:00 2.0 I&O- Last 24 Hours up to 6 AM 07/28/20 06:00 Intake Total 1500 ml Output Total 2800 ml Balance -1300 ml Laboratory Data Labs 24H Laboratory Tests 2 07/28/20 06:15: Immature Granulocyte % (Auto) 0.5, Neutrophils (%) (Auto) 67.0H, Lymphocytes (%) (Auto) 18.1L, Monocytes (%) (Auto) 11.2H, Eosinophils (%) (Auto) 2.5, Basophils (%) (Auto) 0.7, Neutrophils # (Auto) 6.1, Lymphocytes # (Auto) 1.7, Monocytes # (Auto) 1.0H, Eosinophils # (Auto) 0.2, Basophils # (Auto) 0.1, Nucleated Red Blood Cells % (auto) 0.0, Anion Gap 8, Glomerular Filtration Rate > 60.0, Calcium Level 9.1 CBC/BMP Laboratory Tests 07/28/20 06:15 Microbiology Microbiology 07/24/20 Meningitis/Encephalitis Panel (PCR), Received Pending 07/24/20 Body Fluid Culture Result 1, Received Pending 07/24/20 Body Fluid Culture Result 2, Received Pending 07/24/20 Body Fluid Culture Result 3, Received Pending 07/24/20 Body Fluid Culture Result 4, Received Pending 07/24/20 Body Fluid Culture Susceptibility, Received Pending Discharge Medications Scheduled Atorvastatin Calcium (Atorvastatin Calcium) 40 Mg Tab, 40 MG PO DAILY, (Reported) Budesonide/Formoterol (Symbicort 160-4.5 Mcg Inhaler) 60 Puff/Inhaler Aers, 2 PUFF INH BID, (Reported) Diltiazem HCl (Cardizem LA) 120 Mg Tab.er.24h, 120 MG PO DAILY, (Reported) Ergocalciferol (Vitamin D2) (Vitamin D2) 50,000 Units Cap, 50,000 UNITS PO QWEEK, (Reported) FRIDAY Gabapentin (Gabapentin) 100 Mg Capsule, 100 MG PO DAILY Omeprazole (Omeprazole) 20 Mg Capsule.dr, 20 MG PO DAILY, (Reported) Oxybutynin Chloride (Oxybutynin Chloride ER) 10 Mg Tab.er.24, 10 MG PO DAILY, (Reported) Primidone (Mysoline) 50 Mg Tablet, 50 MG PO QHS Primidone (Mysoline) 50 Mg Tablet, 25 MG PO DAILY Ropinirole HCl (Requip) 0.25 Mg Tablet, 0.5 MG PO BID@0900,1200 Ropinirole HCl (Ropinirole HCl) 1 Mg Tablet, 2 MG PO QHS Spironolactone (Spironolactone) 25 Mg Tablet, 25 MG PO DAILY, (Reported) Tiotropium [place] (Spiriva Respimat) 4 Gm Mist.inhal, 2 PUFFS INH DAILY, (Reported) Torsemide (Torsemide) 100 Mg Tablet, 50 MG PO DAILY Scheduled PRN Albuterol Sulfate (Ventolin Hfa) 18 Gm Hfa.aer.ad, 2 PUFF INH Q4H PRN for SOB/WHEEZING, (Reported) Allergies Coded Allergies: Sulfa (Sulfonamide Antibiotics) (Verified Allergy, Unknown, 07/21/20) ARIEL SOLIS DO Jul 28, 2020 14:21
== END 2020-07-28 17:14 | disposition home health service (06) | DRG 92 ==
LOC: M ED 20:34 → M ED INP 22:43 → ENRESERV 07-22 00:42 → M PCU 07-22 01:36 → M MS5PR 07-23 15:26
PROVIDERS: ADMIT Internal Medicine; ATTEND Internal Medicine
DX: G92 Toxic encephalopathy (principal); M62.82 Rhabdomyolysis; I50.32 Chronic diastolic (congestive) heart failure; J96.11 Chronic respiratory failure with hypoxia; J96.12 Chronic respiratory failure with hypercapnia; J44.9 Chronic obstructive pulmonary disease, unspecified; I73.9 Peripheral vascular disease, unspecified; I73.00 Raynaud's syndrome without gangrene; G25.81 Restless legs syndrome; F17.200 Nicotine dependence, unspecified, uncomplicated; G25.0 Essential tremor; F32.9 Major depressive disorder, single episode, unspecified; K21.9 Gastro-esophageal reflux disease without esophagitis; K59.00 Constipation, unspecified; F41.9 Anxiety disorder, unspecified; G62.9 Polyneuropathy, unspecified; Z20.828 Contact with and (suspected) exposure to other viral communicable diseases; Z79.52 Long term (current) use of systemic steroids; Z79.899 Other long term (current) drug therapy; Z88.2 Allergy status to sulfonamides; Z79.02 Long term (current) use of antithrombotics/antiplatelets; Z99.81 Dependence on supplemental oxygen; T42.6X5A Adverse effect of other antiepileptic and sedative-hypnotic drugs, initial encounter

== ENCOUNTER 2020-09-06 12:27 | Inpatient (IN) | payer MEDICARE, OTHER ==
[~2020-09-06] VITALS: Ht 175.3 cm; Wt 52.2 kg
[~2020-09-06 12:27] MED LIST changes: +GABA-282 PO; -GABA-843 PO; +REQU1TAB14 PO
[2020-09-06] MEDS ORDERED: ROPI1TAB3 PO (12:45)
[2020-09-06 13:36] LABS: BASO # 0.1 10^3/uL (0.0-0.2); BASO % 0.6 % (0.0-1.0); EOS # 0.1 10^3/uL (0.0-0.5); EOS % 1.5 % (0.0-3.0); HEMOGLOBIN 17.5 g/dl (12.0-15.5); LYMPH # 2.1 10^3/uL (1.5-5.0); LYMPH % 23.7 % (24.0-44.0); MEAN CORPUSCULAR HGB CONC 32.4 g/dl (32.0-36.5); MEAN CORPUSCULAR VOLUME 80.2 fl (80.0-96.0); MONO # 0.9 10^3/uL (0.0-0.8); MONO % 9.9 % (0.0-5.0); NEUTROPHILS # 5.7 10^3/uL (1.5-8.5); NEUTROPHILS % 63.7 % (36.0-66.0); PLATELET COUNT, AUTOMATED 267 10^3/uL (150-450); RED BLOOD COUNT 6.73 10^6/uL (4.00-5.40); WHITE BLOOD COUNT 8.9 10^3/uL (4.0-10.0)
[2020-09-06 14:20] LABS: ACETAMINOPHEN LEVEL < 2.0 UG/ML (10.0-30.0); ALT/SGPT 39 U/L (12-78); BILIRUBIN,DIRECT 0.1 MG/DL (0.0-0.2); BILIRUBIN,TOTAL 0.6 MG/DL (0.2-1.0); BLOOD UREA NITROGEN 41 MG/DL (7-18); CARBON DIOXIDE LEVEL 37 MEQ/L (21-32); CHLORIDE LEVEL 93 MEQ/L (98-107); CK-MB VALUE MASS 2.7 NG/ML (<3.6); CPK CREATINE PHOSPHOKINASE 80 U/L (26-192); ETHYL ALCOHOL (ETHANOL) < 0.003 % (0.000-0.010); GLUCOSE, FASTING 128 MG/DL (70-100); MB/CK RELATIVE INDEX 3.38 (< OR =4); POTASSIUM SERUM 3.7 MEQ/L (3.5-5.1); SALICYLATE LEVEL 4.2 MG/DL (5.0-30.0); SODIUM LEVEL 134 MEQ/L (136-145); TOTAL PROTEIN 7.8 GM/DL (6.4-8.2); TROPONIN I < 0.02 NG/ML (< 0.10)
--- NOTE | 2020-09-06 14:42 | REP ---
INDICATION: AMS COMPARISON: 07/21/2020 TECHNIQUE: Axial noncontrast images from the skull base to the thoracic inlet with coronal reformations. This CT examination was performed using the following dose reduction techniques: Automated exposure control, adjustment of mA and/or kv according to the patient's size, and use of iterative reconstruction technique. FINDINGS: Age-related atrophy and microvascular ischemic changes are appreciated. The ventricles and sulci are symmetric. Thomas-white differentiation is maintained. There is no evidence for acute intracranial hemorrhage, mass/mass effect, pathology or infarction. No extra-axial fluid collection. Calvarium is intact. Paranasal sinuses and mastoid air cells are clear. IMPRESSION: Age related atrophy and microvascular ischemic changes. No acute intracranial hemorrhage, infarction, or mass/mass effect. <Electronically signed by Parth Hinojosa > 09/06/20 [id number]
[2020-09-06] MEDS ORDERED: NS 1,000 ML IV ONE (15:00)
[2020-09-06 16:06] LABS: AMPHETAMINES LEVEL URINE NEGATIVE (NEGATIVE); BARBITURATES URINE POSITIVE (NEGATIVE); BENZODIAZEPINES URINE NEGATIVE (NEGATIVE); CANNABINOIDS URINE NEGATIVE (NEGATIVE); COCAINE METABOLITE URINE NEGATIVE (NEGATIVE); METHADONE URINE NEGATIVE (NEGATIVE); OPIATES URINE NEGATIVE (NEGATIVE); PHENCYCLIDINE URINE NEGATIVE (NEGATIVE)
[2020-09-06] MEDS ORDERED: OLANZapine INTRAMUSCULAR 10MG VIAL IM ONE (16:15)
[2020-09-06] MEDS ORDERED: ACET650T15 PO (17:37)
[2020-09-06] MEDS ORDERED: GABA-1171 PO (17:41)
[2020-09-06] MEDS ORDERED: NICOTINE 21MG/24HR 1 EA TRANSDERMAL TD ONE (18:15)
[2020-09-06] MEDS ORDERED: ALBUTEROL 90 MCG/ACT 8GM HFA INHALER INH PRN (18:15)
[2020-09-06] MEDS: SYMBICORT 160/4.5MCG INHALER 6GM INH SCH (20:00)
[2020-09-06] MEDS ORDERED: ACETAMINOPHEN TAB 650MG DOSE (2X325MG) PO PRN (20:30)
[2020-09-06 21:00] VITALS: BP 121/76
[2020-09-06] MEDS ORDERED: HALOPERIDOL 5MG/ML VIAL (J1630 PER 1) IV ONE (22:30)
--- NOTE | 2020-09-07 05:26 | ECGEPIP ---
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
[2020-09-07 06:00] VITALS: BP 132/84
[2020-09-07 08:21] LABS: ALBUMIN 4.3 GM/DL (3.2-5.2); BILIRUBIN,TOTAL 0.5 MG/DL (0.2-1.0); CALCIUM LEVEL 9.5 MG/DL (8.8-10.2); CREATININE FOR GFR 1.5 MG/DL (0.55-1.30); GLOMERULAR FILTRATION RATE 37.3 (>45); POTASSIUM SERUM 3.5 MEQ/L (3.5-5.1); TOTAL PROTEIN 7.7 GM/DL (6.4-8.2)
[2020-09-07] MEDS ORDERED: OLANZapine 5 MG TAB PO SCH (09:00)
[2020-09-07] MEDS: SYMBICORT 160/4.5MCG INHALER 6GM INH SCH ×2 (11:44→18:11)
--- NOTE | 2020-09-07 13:22 | HPE ---
HISTORY AND PHYSICAL DATE OF ADMISSION: 09/06/2020 CHIEF COMPLAINT: Change in mental status. HISTORY OF PRESENT ILLNESS: Patient with a long history of variable functional status described as intellectual, mental and performance impairment admitted because of behavior at home where she was intractable. She has had previous behavioral disturbances, which are well documented in the chart. Imaging studies in the past have shown evidence of neurodegenerative process with no clear etiology identified. 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 There is a hint of demyelination in her midbrain as well on previous imaging and general atrophy of the cerebrum, surprisingly an electroencephalogram (EEG) was done with her previous admission, which was essentially normal. Her last visit with a physician was with Dr. Shaista Montano on August 17 and her medications were largely continued, although many of her medications during her hospital stay had been discontinued due to concern of polypharmacy contributing to her behavioral disturbances. At the time of her last outpatient visit on August 17, the patient's medications include omeprazole 20 mg daily, Pro-Air, metered dose inhaler, Symbicort 2 puffs twice a day for chronic obstructive pulmonary disease (COPD) symptoms, spironolactone 25 mg daily, Spiriva 2.5 mcg daily, Cardizem LA 120 mg by mouth daily, atorvastatin 40 mg daily, 5-Fluorouracil to the right leg and arm spots for six weeks, Drisdol 35376 units weekly, gabapentin 100 mg daily, tizanidine 4 mg three times a day, primidone 50 mg daily, ropinirole 0.25 mg twice a day and ropinirole 2 mg tablets one tablet 1 to 3 hours before bedtime daily. Primidone is also listed in her outpatient chart as of a 50 mg tablet daily and oxybutynin 5 mg two tabs daily. PAST MEDICAL HISTORY: Remarkable for multiple chronic problems many of which related to smoking, chronic obstructive pulmonary disease (COPD), bilateral carotid endarterectomy, right heart failure for which she sees Dr. Nassar, for chronic obstructive pulmonary disease (COPD) she has seen Dr. Zazueta in the past. History of essential tremors and peripheral polyneuropathy and a history of Raynaud's and obviously tobacco abuse. Dr. Avendaño had her on Plavix, which is not listed in her most recent medication list. PAST SURGICAL HISTORY: Tonsillectomy, colonoscopy times 3, bilateral carotid surgeries in 2017 and heart catheterization in January of 2020. FAMILY HISTORY: Remarkable only for colon cancer in her father at age 66 and Alzheimer's disease in her mother at advanced age 89. SOCIAL HISTORY: She is a current smoker. Behavior in the hospital so far has been disturbance, lack of cooperation, apparently she did receive an IV infusion of saline, but currently has no IV in place. She is uncooperative with approach and examination. REVIEW OF SYSTEMS: Unobtainable from the patient. PHYSICAL EXAMINATION: Vital signs as recorded include blood pressure 105/67, pulse 83, respiratory rate documented at 18, O2 saturation 98% on room air. She does have a history of hypercarbia and right now oxygen is not being given. Saturations are difficulty to measure because she has coloring on her nails, which makes it so that saturation cannot be obtained. Examination was not really permitted by the patient. She has decreased breath sounds, but no dullness. She moves both extremities without limitation. Neck motion seems to be within normal limits. Ambulation is impaired only by balance, seems to be uncertain of her balance as she attempted to stand and exit the room, not cooperative with the examination and not cooperative with directives from nurses. So far has not been aggressive in terms of striking out. Urine screen was positive for barbiturates, which is expected since she is on Mysoline. Syphilis serology was ordered and was negative. LABORATORY DATA: Syphilis serology was negative. COVID screen was negative. Hemoglobin elevated at 17.5, it's higher than her usual baseline and BUN of 41, creatinine of 1.3, both of which suggest dehydration. Albumin is 4.0, surprisingly good. Albumin/globulin ratio is low suggesting the presence of hypergammaglobulinemia. Ammonia level was not elevated at less than 10. TSH was normal at 1.220. Imaging studies performed with this admission include brain CT, which showed age related atrophy, microvascular ischemic changes, no evidence of acute hemorrhage, mass effect, etc. IMPRESSION: The patient exhibits behavioral changes which have been attributed to metabolic encephalopathy. The pattern seems to be compatible with neurodegenerative disease. A Creutzfeldt-Jordon screen was done at previous admission, which test finally returned as negative and as noted syphilis serology was negative. Curiously at her last visit with Dr. oMntano, she was found to be alert and oriented and with an otherwise normal examination, even having good air movement throughout. PLAN: The patient will be admitted to the hospital for an attempt establish safety. We hope to be assisted by her son to help her to get to drink and allow IV access so that we can began the process of rehydrating her. PROGNOSIS: Guarded considering the apparently progressive nature of her behavioral difficulties. The toxicology screen revealed nothing surprising that would account for her behavior. Barbiturates are expected since she is suppose to be Mysoline as a therapeutic agent. In the emergency department (ED) so far she has received intramuscular neuroleptic, which has produced inadequate response as far behavioral control. Psychiatry has seen the patient in the past and deemed her problem nonpsychiatric and again this overall based on MRI findings from previous admission seems consistent with undefined neurodegenerative disease. Would consider consultation with neurology for follow up evaluation and opinion regarding options for management. Apparently, her son has been helping to take care of her at home. It is hard to see at this point how she is going to return safely to a home environment. She does have a nicotine addiction and will attempt to mitigate her nicotine withdrawal symptoms with transdermal patch if she will permit placement of same MTDD
[2020-09-07 14:00] VITALS: BP 100/69
[2020-09-07] MEDS ORDERED: NS 500 ML IV ONE (16:30)
[2020-09-07] MEDS ORDERED: OLANZapine INTRAMUSCULAR 10MG VIAL IM ONE (17:15)
--- NOTE | 2020-09-07 20:07 | IPNPDOC ---
Date Seen The patient was seen on 09/07/20. Progress Note Informed by nursing nutritional yeast supervisor that patient is leaving AMA. Per day team, patient altered, possible due to a neurodegerative disorder? psychiatric issues may be contributing. Nonetheless, medical workup is not complete and patient does not have capacity to leave AMA. Spoke to ED provider Dr. Cortes as well as PFS staff. Order for Police pickup issues. Patient will be recovered and returned to ED. VS, I&O, 24H, Fishbone Vital Signs/I&O Vital Signs Date Time Temp Pulse Resp B/P (MAP) Pulse Ox O2 Delivery O2 Flow Rate FiO2 09/07/20 14:00 98.2 92 19 100/69 (79) 96 Room Air I&O- Last 24 Hours up to 6 AM 09/07/20 06:00 Intake Total 1300 ml Balance 1300 ml Laboratory Data 24H LABS Laboratory Tests 2 09/07/20 06:11: Anion Gap 10, Glomerular Filtration Rate 37.3L, Calcium Level 9.5, Total Bilirubin 0.5, Aspartate Amino Transf (AST/SGOT) 35, Alanine Aminotransferase (ALT/SGPT) 40, Alkaline Phosphatase 119H, Total Protein 7.7, Albumin 4.3, Albumin/Globulin Ratio 1.3 CBC/BMP Laboratory Tests 09/07/20 06:11 Microbiology Microbiology 09/06/20 Urine Culture - Final, Complete ANGUS AUGUST MD Sep 07, 2020 20:07
[2020-09-07] MEDS ORDERED: DILT120C78 PO (21:02)
[2020-09-07] MEDS ORDERED: TIZA4TAB4 PO (21:02)
--- NOTE | 2020-09-07 22:55 | IPNPDOC ---
Subjective Date Seen The patient was seen on 09/07/20. Subjective Chief Complaint/HPI Mrs. Branham is a 64 year old female with depression/anxiety and essential tremors who is here for AMS. This morning, she denied any fever, chest pain, or dyspnea. This afternoon, she was agitated and wanted to go home. Nursing reported that patient had bizarre behavior throughout the day. She thought her son was here. She was wandering the floor and masturbating in her room. She was agitated. Objective Physical Examination Eye Exam: Positive: EOMI; Negative: Sclera icteric Neck Exam: Positive: Supple Chest Exam: Positive: Clear to auscultation Heart Exam: Positive: Rate Normal, Regular Rhythm Abdomen Exam: Positive: Normal bowel sounds, Soft; Negative: Tenderness Extremity Exam: Negative: Edema Assessment /Plan Assessment Mrs. Branham is a 64 year old female with depression/anxiety and essential tremors who is here for AMS. She is dehydrated and exhibits HAKAN. Will try to rehydrate her. Otherwise, unclear cause to patient's AMS. Last admission, it was thought to be secondary to polypharmacy. She is still on ropinirole/primidone/gabapentin. Otherwise, patient lives with son at home. Son may not be able to care for mother and may need placement. Plan/VTE VTE Prophylaxis Ordered?: Yes Plan 1. Metabolic encephalopathy -May be secondary to polypharmacy -May need to hold ropinirole and gabapentin 2. HAKAN -Basleine creatinine around 0.6 to 0.8 -Last creatinine 1.5 -IV hydration 3. Nicotine use -Added nicotine patch 4. COPD -Stable, continue inhalers 5. Restless leg syndrome -On ropinirole -May need to be held 6. DVT ppx -Lovenox Disposition: Due to patient's AMS, patient should not be able to leave AMA. Currently not enough sitters. Pending improvement in mental status. VS, I&O, 24H, [place] Vital Signs/I&O Vital Signs Date Time Temp Pulse Resp B/P (MAP) Pulse Ox O2 Delivery O2 Flow Rate FiO2 09/07/20 14:00 98.2 92 19 100/69 (79) 96 Room Air I&O- Last 24 Hours up to 6 AM 09/07/20 06:00 Intake Total 1300 ml Balance 1300 ml Laboratory Data 24H LABS Laboratory Tests 2 09/07/20 06:11: Anion Gap 10, Glomerular Filtration Rate 37.3L, Calcium Level 9.5, Total Bilirubin 0.5, Aspartate Amino Transf (AST/SGOT) 35, Alanine Aminotransferase (ALT/SGPT) 40, Alkaline Phosphatase 119H, Total Protein 7.7, Albumin 4.3, Albumin/Globulin Ratio 1.3 CBC/BMP Laboratory Tests 09/07/20 06:11 Microbiology Microbiology 09/06/20 Urine Culture - Final, Complete VENANCIO VILLATORO DO Sep 07, 2020 22:55
[2020-09-08] MEDS ORDERED: NICOTINE 21MG/24HR 1 EA TRANSDERMAL TD SCH (09:00)
[2020-09-11] MEDS ORDERED: VITAMIN D 50,000 UNITS CAPSULE (ERGOCALCIFEROL 1.25MG) PO SCH (09:00)
== END 2020-09-07 19:40 | disposition left against medical advice (07) | DRG 72 ==
LOC: M ED 12:27 → M ED INP 17:05 → M MSPAV 20:58
PROVIDERS: ADMIT Family Medicine; ATTEND Internal Medicine
DX: G93.41 Metabolic encephalopathy (principal); R41.82 Altered mental status, unspecified; J44.9 Chronic obstructive pulmonary disease, unspecified; G25.0 Essential tremor; F17.200 Nicotine dependence, unspecified, uncomplicated; I50.810 Right heart failure, unspecified; G62.9 Polyneuropathy, unspecified; Z11.52 Encounter for screening for COVID-19

== ENCOUNTER 2020-09-07 20:04 | Inpatient (IN) | payer MEDICARE, OTHER ==
[~2020-09-07] VITALS: Ht 172.7 cm; Wt 52.2 kg
[~2020-09-07 20:04] MED LIST changes: +ACET650T15 PO
[2020-09-07] MEDS ORDERED: LORazepam 2 MG/ML VIAL IV STA (20:18)
[2020-09-07] MEDS ORDERED: PRIMIDONE 50 MG TAB PO SCH (21:00)
[2020-09-07] MEDS ORDERED: TIZA4TAB4 PO (21:02)
[2020-09-07] MEDS ORDERED: DILT120C78 PO (21:02)
--- NOTE | 2020-09-07 22:14 | HPEPDOC ---
[facility] Medical History & Physical Date of Admission Sep 07, 2020 Date of Service: Sep 07, 2020 History and Physical CHIEF COMPLAINT: altered mental status HISTORY OF PRESENT ILLNESS: A 64-year-old female with a history of COPD, diastolic congestive heart failure, peripheral neuropathy, essential tremors, as well as intellectual mental and performance impairment likely due to neurocognitive disturbance. Left AMA on 09/07/20, was return to ER by police as patient had no capacity for leaving AGAINST MEDICAL ADVICE. Patient does not appear to have a psychiatric cause for her altered mental status as was previously evaluated in the past. At this stage patient be admitted to medical surgical floor in an attempt to establish safety along with case management consultation to assist with placement. PAST MEDICAL HISTORY: COPD Diastolic congestive heart failure Essential tremor Peripeharal polyneuropathy Raynaud's Carotid artery atherosclerosis PAST SURGICAL HISTORY: bilateral carotid endarterectomy SOCIAL HISTORY: current smoker FAMILY HISTORY: Father - colon cacner at age 66 Mother - Alzheimer's disease ALLERGIES: Please see below. REVIEW OF SYSTEMS: 10 point ROS completed, positives noted in HPI. HOME MEDICATIONS: Please see below. PHYSICAL EXAMINATION: VITAL SIGNS: please see below General: NAD, comfortable HEENT: PERRLA, EOMI, sclerae clear Neck: supple, normal ROM, no JVD Respiratory: lungs CTAB, no wheeze, no rales, no crackles CVS: RRR, normal S1, S2, no murmurs Abdo: soft, no masses, no hepatosplenomegaly, BS+, no rebound tenderness Extremities: no edema, pulses 2+ MSK: no joint deformities, normal ROM Neuro: no focal neuro deficits, moving all 4 extremities, CN2-12 intact. Strength 5/5 in all 4 extremities. No nystagmus. Psych: calm, cooperative, AAO x 3 LABORATORY DATA: See below. IMAGING: CT head (09/06/20) Age related atrophy and microvascular ischemic changes. No acute intracranial hemorrhage, infarction, or mass/mass effect. MICROBIOLOGY: Please see below. ASSESSMENT: 64 yo F with a hx of neurocognitive disturbance, abnormal behaviours, COPD, left AMA on 09/07/20, was return to ED by Police, as had not capacity for AMA. Admitted to med/surg for ongoing neuro workup, and PFS assistance for placement. . PLAN: Neurocognitive disturbance - establish safety - consider neuro eval - PFS to assist with placement - prn haldol for behaviours - will hold ropinirole and tizanidine for now COPD - stable - resume symbicort, albuterol R sided heart failure - resume home meds - spironolactone HTN - cardizem Bilateral carotid endarterecomy - statin GI ppx: omeprazole DVT ppx: lovenox Dispo: admission expected to span more than 2 midnights. Patient does not have capacity for AMA, due to a nonpsychiatric reason. Home Medications Scheduled Atorvastatin Calcium (Atorvastatin Calcium) 40 Mg Tab, 40 MG PO DAILY Budesonide/Formoterol (Symbicort 160-4.5 Mcg Inhaler) 60 Puff/Inhaler Aers, 2 PUFF INH BID Diltiazem HCl (Diltiazem 24Hr ER) 120 Mg Cap.er.24h, 120 MG PO DAILY Ergocalciferol (Vitamin D2) (Vitamin D2) 50,000 Units Cap, 50,000 UNITS PO QWEEK FRIDAY Gabapentin (Gabapentin) 100 Mg Capsule, 100 MG PO DAILY ran out 09/05/20 pt's son believes pcp intended to wean off. Omeprazole (Omeprazole) 20 Mg Capsule.dr, 20 MG PO DAILY Quetiapine Fumarate (Quetiapine Fumarate) 25 Mg Tablet, 25 MG PO DAILY Ramelteon (Ramelteon) 8 Mg Tablet, 8 MG PO QHS Spironolactone (Spironolactone) 25 Mg Tablet, 25 MG PO DAILY Tiotropium [place] (Spiriva Respimat) 4 Gm Mist.inhal, 2 PUFFS INH DAILY Scheduled PRN Acetaminophen (Acetaminophen ER) 650 Mg Tablet.er, 650 MG PO TID PRN for PAIN Albuterol Sulfate (Ventolin Hfa) 18 Gm Hfa.aer.ad, 2 PUFF INH Q4H PRN for SOB/WHEEZING Allergies Coded Allergies: Sulfa (Sulfonamide Antibiotics) (Verified Allergy, Unknown, 07/21/20) A-FIB/CHADSVASC A-FIB History Current/History of A-Fib/PAF?: No Current PO Anticoag Therapy: No ANGUS AUGUST MD Sep 07, 2020 22:14
[2020-09-07] MEDS ORDERED: MAALOX 30 ML SUSP *UDC PO PRN (22:15)
[2020-09-07] MEDS ORDERED: MOM 30ML SUSPENSION UDC PO PRN (22:15)
[2020-09-07] MEDS ORDERED: ALBUTEROL 90 MCG/ACT 8GM HFA INHALER INH PRN (22:30)
[2020-09-07 22:35] VITALS: BP 105/61
[2020-09-07] MEDS ORDERED: PILL CUTTER 1 EACH XX PRN (23:00)
[2020-09-08 06:00] VITALS: BP 100/61
[2020-09-08] MEDS: SYMBICORT 160/4.5MCG INHALER 6GM INH SCH ×2 (07:31→18:03)
[2020-09-08] MEDS: TIOTROPIUM INHALER/CAPSULE (SPIRIVA) INH SCH (07:31)
[2020-09-08] MEDS ORDERED: PRIMIDONE 25MG PER 1/2 TABLET PO SCH ×2 (09:00→21:00)
[2020-09-08] MEDS ORDERED: PRIMIDONE 50 MG TAB PO SCH (09:00)
[2020-09-08] MEDS: ATORVASTATIN 20 MG TAB PO SCH (09:50)
[2020-09-08] MEDS: ENOXAPARIN 40MG/0.4ML SYRINGE (J1650 PER 10MG) SC SCH (09:50)
[2020-09-08] MEDS: OMEPRAZOLE 20 MG CAP PO SCH (09:53)
[2020-09-08] MEDS: rOPINIRole 0.25 MG TAB(REQUIP) PO SCH ×2 (09:53→12:52)
[2020-09-08] MEDS: GABAPENTIN 100 MG CAP PO SCH (09:53)
[2020-09-08] MEDS: DOCUSATE SODIUM 100MG CAPSULE PO SCH ×2 (09:53→20:18)
[2020-09-08] MEDS: SPIRONOLACTONE 25 MG TAB PO SCH (09:53)
[2020-09-08] MEDS: ACETAMINOPHEN TAB 650MG DOSE (2X325MG) PO PRN (09:54)
[2020-09-08 09:55] LABS: HEMATOCRIT 45.8 % (36.0-47.0); MEAN CORPUSCULAR HEMOGLOBIN 26.4 pg (27.0-33.0); MEAN CORPUSCULAR HGB CONC 32.1 g/dl (32.0-36.5); MEAN CORPUSCULAR VOLUME 82.2 fl (80.0-96.0); PLATELET COUNT, AUTOMATED 237 10^3/uL (150-450); RED BLOOD COUNT 5.57 10^6/uL (4.00-5.40)
[2020-09-08 10:01] LABS: HEMOGLOBIN 14.7 g/dl (12.0-15.5)
[2020-09-08 10:27] LABS: ALBUMIN 3.9 GM/DL (3.2-5.2); BILIRUBIN,DIRECT 0.2 MG/DL (0.0-0.2); BILIRUBIN,TOTAL 0.5 MG/DL (0.2-1.0); CALCIUM LEVEL 9.4 MG/DL (8.8-10.2); CREATININE FOR GFR 1.08 MG/DL (0.55-1.30); GLOMERULAR FILTRATION RATE 54.5 (>45); TOTAL PROTEIN 6.9 GM/DL (6.4-8.2)
[2020-09-08 14:00] VITALS: BP 101/63
[2020-09-08 20:10] VITALS: BP 104/66
--- NOTE | 2020-09-08 20:10 | IPNPDOC ---
Date Seen The patient was seen on 09/08/20. Progress Note SUBJECTIVE: - Patient comfortable in bed, is thanking me for the medication I gave her last night, even though I wasn't working at that time. Despite trying to orient the patient, she was unable to comprehend the fact that I wasn't here last night. She is currently in a good mood, without any complaints. She reports that she will be leaving later today. PHYSICAL EXAMINATION: VITAL SIGNS: Please see below. GENERAL: No distress HEENT: Normocephalic, atraumatic, moist mucous membranes NECK: Supple CARDIOVASCULAR EXAMINATION: S1, S2, no murmurs RESPIRATORY EXAMINATION: Poor air movement, no wheezing ABDOMINAL EXAMINATION: Soft, nontender, nondistended, positive bowel sounds EXTREMITIES: Range of motion intact SKIN: No rash NEUROLOGICAL EXAMINATION: Alert and oriented 3, no focal deficits PSYCHIATRIC EXAMINATION: Calm and cooperative LABORATORY DATA, IMAGING STUDIES, MICROBIOLOGY: Please see below. ASSESSMENT AND PLAN: 64-year-old female with multiple recent admissions for altered mental status, was previously been worked up by neurology/psychiatry is readmitted for altered mental status after being brought back by police. PROBLEMS: 1. Altered mental status: Etiology unclear, multiple MRIs in July 2020 point against neurodegenerative disorder as the sole cause of her mentation as symptoms are disproportionate to what the imaging indicate. Has had a psychiatric admission in July 2020 as well. Case discussed with neurology (Dr. Olguin), MRI, and prior evaluations were reviewed, reduce primidone and discontinue Requip in case polypharmacy is contributing to her symptoms. Consulted psychiatry (Dr. Daniels) for further assistance. Patient lacks insight on my evaluation. 2. COPD Continue home Symbicort and Spiriva 3. Hypertension. Continue Cardizem and spironolactone DVT prophylaxis: Lovenox. GI prophylaxis: PPI VS, I&O, 24H, Fishbone Vital Signs/I&O Vital Signs Date Time Temp Pulse Resp B/P (MAP) Pulse Ox O2 Delivery O2 Flow Rate FiO2 09/08/20 14:00 97.9 93 19 101/63 (76) 95 Room Air I&O- Last 24 Hours up to 6 AM 09/08/20 06:00 Intake Total 1080 ml Balance 1080 ml Laboratory Data 24H LABS Laboratory Tests 2 09/08/20 09:37: Nucleated Red Blood Cells % (auto) 0.0, Anion Gap 7L, Glomerular Filtration Rate 54.5, Calcium Level 9.4, Total Bilirubin 0.5, Direct Bilirubin 0.2, Aspartate A melecio Transf (AST/SGOT) 36, Alanine Aminotransferase (ALT/SGPT) 39, Alkaline Phosphatase 111, Total Protein 6.9, Albumin 3.9, Albumin/Globulin Ratio 1.3 CBC/BMP Laboratory Tests 09/08/20 09:37 JAMES ADEN MD Sep 08, 2020 20:10
[2020-09-08] MEDS ORDERED: HALOPERIDOL 5MG/ML VIAL (J1630 PER 1) IV ONE (20:45)
[2020-09-08] MEDS: HALOPERIDOL 5MG/ML VIAL (J1630 PER 1) IV PRN (20:49)
[2020-09-08] MEDS: NICOTINE 7 MG/24 HR TRANSDERMAL TD SCH (20:52)
[2020-09-08] MEDS ORDERED: PRIMIDONE 50 MG TAB PO ONE (23:00)
[2020-09-09] MEDS ORDERED: SODIUM CHLORIDE 0.9% INJ 10 ML SYR IV PRN (00:45)
[2020-09-09 05:54] VITALS: BP 100/63
[2020-09-09] MEDS: HALOPERIDOL 5MG/ML VIAL (J1630 PER 1) IV PRN (05:55)
[2020-09-09] MEDS ORDERED: SODIUM CHLORIDE 0.9% INJ 10 ML SYR IV SCH (06:00)
[2020-09-09] MEDS: TIOTROPIUM INHALER/CAPSULE (SPIRIVA) INH SCH (07:31)
[2020-09-09] MEDS: SYMBICORT 160/4.5MCG INHALER 6GM INH SCH ×2 (07:31→18:11)
[2020-09-09] MEDS: SPIRONOLACTONE 25 MG TAB PO SCH (08:47)
[2020-09-09] MEDS: ATORVASTATIN 20 MG TAB PO SCH (08:48)
[2020-09-09] MEDS: QUEtiapine FUMARATE 25 MG TAB PO SCH (08:48)
[2020-09-09] MEDS: OMEPRAZOLE 20 MG CAP PO SCH (08:48)
[2020-09-09] MEDS: PRIMIDONE 25MG PER 1/2 TABLET PO SCH ×2 (08:48→19:37)
[2020-09-09] MEDS: DOCUSATE SODIUM 100MG CAPSULE PO SCH ×2 (08:48→19:37)
[2020-09-09] MEDS: GABAPENTIN 100 MG CAP PO SCH (08:48)
[2020-09-09] MEDS: NICOTINE 7 MG/24 HR TRANSDERMAL TD SCH (08:49)
[2020-09-09] MEDS: ENOXAPARIN 40MG/0.4ML SYRINGE (J1650 PER 10MG) SC SCH (08:49)
[2020-09-09] MEDS ORDERED: NICOTINE 7 MG/24 HR TRANSDERMAL TD SCH (09:00)
--- NOTE | 2020-09-09 11:33 | ECGEPIP ---
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 Could not rule out prior septal i infarction ST/T wave abnormalities 09/06/20 have improved Electronically Signed on 09-09-2020 11:33:05 EST by Colt Prieto
[2020-09-09 14:00] VITALS: BP 126/76
--- NOTE | 2020-09-09 21:53 | IPNPDOC ---
Date Seen The patient was seen on 09/09/20. Progress Note SUBJECTIVE: - Comfortable in bed, no new complaints, wishes to go home. Advise about psychiatric evaluation later today, agreeable to stay until psychiatrist arrives. PHYSICAL EXAMINATION: VITAL SIGNS: Please see below. GENERAL: No distress HEENT: Normocephalic, atraumatic, moist mucous membranes NECK: Supple CARDIOVASCULAR EXAMINATION: S1, S2, no murmurs RESPIRATORY EXAMINATION: Poor air movement, no wheezing ABDOMINAL EXAMINATION: Soft, nontender, nondistended, positive bowel sounds EXTREMITIES: Range of motion intact SKIN: No rash NEUROLOGICAL EXAMINATION: Alert and oriented 3, no focal deficits PSYCHIATRIC EXAMINATION: Calm and cooperative LABORATORY DATA, IMAGING STUDIES, MICROBIOLOGY: Please see below. ASSESSMENT AND PLAN: 64-year-old female with multiple recent admissions for altered mental status, was previously been worked up by neurology/psychiatry is readmitted for altered mental status after being brought back by police. PROBLEMS: 1. Altered mental status: Etiology unclear, multiple MRIs in July 2020 point against neurodegenerative disorder as the sole cause of her mentation as symptoms are disproportionate to what the imaging indicate. Has had a psychiatric admission in July 2020 as well. Case discussed with neurology (Dr. Olguin), MRI, and prior evaluations were reviewed, reduce primidone and discontinue Requip in case polypharmacy is contributing to her symptoms. Awaiting psychiatry consultation. 2. COPD Continue home Symbicort and Spiriva 3. Hypertension. Continue Cardizem and spironolactone DVT prophylaxis: Lovenox. GI prophylaxis: PPI VS, I&O, 24H, Fishbone Vital Signs/I&O Vital Signs Date Time Temp Pulse Resp B/P (MAP) Pulse Ox O2 Delivery O2 Flow Rate FiO2 09/09/20 14:00 98.0 80 17 126/76 (93) 93 Room Air I&O- Last 24 Hours up to 6 AM 09/09/20 06:00 Intake Total 660 ml Output Total 0 ml Balance 660 ml JAMES ADEN MD Sep 09, 2020 21:53
[2020-09-09 22:00] VITALS: BP 126/75
[2020-09-10 06:00] VITALS: BP 130/70
[2020-09-10] MEDS: SYMBICORT 160/4.5MCG INHALER 6GM INH SCH ×2 (07:01→19:20)
[2020-09-10] MEDS: TIOTROPIUM INHALER/CAPSULE (SPIRIVA) INH SCH (07:01)
[2020-09-10] MEDS: NICOTINE 7 MG/24 HR TRANSDERMAL TD SCH (10:00)
[2020-09-10] MEDS: SPIRONOLACTONE 25 MG TAB PO SCH (10:00)
[2020-09-10] MEDS: OMEPRAZOLE 20 MG CAP PO SCH (10:01)
[2020-09-10] MEDS: QUEtiapine FUMARATE 25 MG TAB PO SCH (10:01)
[2020-09-10] MEDS: PRIMIDONE 25MG PER 1/2 TABLET PO SCH ×2 (10:01→19:47)
[2020-09-10] MEDS: DOCUSATE SODIUM 100MG CAPSULE PO SCH ×2 (10:02→19:47)
[2020-09-10] MEDS: GABAPENTIN 100 MG CAP PO SCH (10:02)
[2020-09-10] MEDS: ATORVASTATIN 20 MG TAB PO SCH (10:02)
[2020-09-10] MEDS: ENOXAPARIN 40MG/0.4ML SYRINGE (J1650 PER 10MG) SC SCH (10:02)
[2020-09-10 14:00] VITALS: BP 98/65
--- NOTE | 2020-09-10 16:25 | IPNPDOC ---
Date Seen The patient was seen on 09/10/20. Progress Note SUBJECTIVE: - Comfortable, no new complaints, still awaiting psychiatric evaluation. PHYSICAL EXAMINATION: VITAL SIGNS: Please see below. GENERAL: No distress HEENT: Normocephalic, atraumatic, moist mucous membranes NECK: Supple CARDIOVASCULAR EXAMINATION: S1, S2, no murmurs RESPIRATORY EXAMINATION: Poor air movement, no wheezing ABDOMINAL EXAMINATION: Soft, nontender, nondistended, positive bowel sounds EXTREMITIES: Range of motion intact SKIN: No rash NEUROLOGICAL EXAMINATION: Alert and oriented 3, no focal deficits PSYCHIATRIC EXAMINATION: Calm and cooperative LABORATORY DATA, IMAGING STUDIES, MICROBIOLOGY: Please see below. ASSESSMENT AND PLAN: 64-year-old female with multiple recent admissions for altered mental status, was previously been worked up by neurology/psychiatry is readmitted for altered mental status after being brought back by police. PROBLEMS: 1. Altered mental status: Etiology unclear, multiple MRIs in July 2020 point against neurodegenerative disorder as the sole cause of her mentation as symptoms are disproportionate to what the imaging indicate. Has had a psychiatric admission in July 2020 as well. Case discussed with neurology (Dr. Olguin), MRI, and prior evaluations were reviewed, medications were adjusted to rule out polypharmacy. Still awaiting psychiatry consultation. 2. COPD Continue home Symbicort and Spiriva 3. Hypertension. Continue Cardizem and spironolactone DVT prophylaxis: Lovenox. GI prophylaxis: PPI VS, I&O, 24H, Fishbone Vital Signs/I&O Vital Signs Date Time Temp Pulse Resp B/P (MAP) Pulse Ox O2 Delivery O2 Flow Rate FiO2 09/10/20 14:00 98.4 92 18 98/65 (76) 98 Room Air I&O- Last 24 Hours up to 6 AM 09/10/20 06:00 Intake Total 1020 ml Output Total 0 ml Balance 1020 ml JAMES ADEN MD Sep 10, 2020 16:25
[2020-09-10 22:00] VITALS: BP 107/66
[2020-09-11 06:00] VITALS: BP 125/71
[2020-09-11 06:45] LABS: HEMOGLOBIN 12.8 g/dl (12.0-15.5); MEAN CORPUSCULAR HEMOGLOBIN 26.8 pg (27.0-33.0); MEAN CORPUSCULAR HGB CONC 31.2 g/dl (32.0-36.5); PLATELET COUNT, AUTOMATED 209 10^3/uL (150-450); RED BLOOD COUNT 4.77 10^6/uL (4.00-5.40); WHITE BLOOD COUNT 8.9 10^3/uL (4.0-10.0)
[2020-09-11 06:47] LABS: BLOOD UREA NITROGEN 32 MG/DL (7-18); CARBON DIOXIDE LEVEL 34 MEQ/L (21-32); CHLORIDE LEVEL 106 MEQ/L (98-107); CREATININE FOR GFR 0.76 MG/DL (0.55-1.30); GLOMERULAR FILTRATION RATE > 60.0 (>45); GLUCOSE, FASTING 114 MG/DL (70-100); POTASSIUM SERUM 4.8 MEQ/L (3.5-5.1); SODIUM LEVEL 139 MEQ/L (136-145)
[2020-09-11] MEDS: TIOTROPIUM INHALER/CAPSULE (SPIRIVA) INH SCH (09:44)
[2020-09-11] MEDS: SYMBICORT 160/4.5MCG INHALER 6GM INH SCH ×2 (09:44→19:33)
[2020-09-11] MEDS: ENOXAPARIN 40MG/0.4ML SYRINGE (J1650 PER 10MG) SC SCH (10:08)
[2020-09-11] MEDS: NICOTINE 7 MG/24 HR TRANSDERMAL TD SCH (10:09)
[2020-09-11] MEDS: DOCUSATE SODIUM 100MG CAPSULE PO SCH ×2 (10:09→20:10)
[2020-09-11] MEDS: QUEtiapine FUMARATE 25 MG TAB PO SCH (10:11)
[2020-09-11] MEDS: OMEPRAZOLE 20 MG CAP PO SCH (10:11)
[2020-09-11] MEDS: GABAPENTIN 100 MG CAP PO SCH (10:11)
[2020-09-11] MEDS: ATORVASTATIN 20 MG TAB PO SCH (10:11)
[2020-09-11] MEDS: PRIMIDONE 25MG PER 1/2 TABLET PO SCH ×2 (10:11→20:10)
[2020-09-11] MEDS: SPIRONOLACTONE 25 MG TAB PO SCH (10:11)
--- NOTE | 2020-09-11 10:44 | MHCR ---
[facility] CONSULTATION DATE: 09/09/2020 HISTORY OF PRESENT ILLNESS: I was asked to see this 64-year-old woman who apparently has had multiple admissions for altered mental status. I did review the records on this patient. It seems that the patient first presented and was admitted to the medical service on 07/04/2020 and discharged the next day. She apparently was referred by her primary care doctor because she was noted to be confused. Of note, was that at that time the patient's son indicated that the patient has been taking some medications that are not prescribed for her from her neighbor and apparently that medication was barbiturates. Subsequent to that, she was admitted to [facility] from 07/11/2020 to 07/14/2020. She was diagnosed with brief reactive psychosis and treated with Haldol 1 mg twice a day. She then got admitted 07/21/2020 to 07/28/2020 to the medical service, diagnosed with metabolic encephalopathy, chronic obstructive pulmonary disease (COPD) with chronic respiratory failure with hypercarbia. She was seen by psychiatry, Dr. Morataya, who felt that the patient was in an acute delirium secondary to substance or medical problem. He did not feel that this was a primary psychiatric condition. Apparently, they attempted to cut back on some of her medications thinking that maybe some of the medications were contributing to her confusion. The patient was then admitted from 09/06/2020 to 09/07/2020. During that admission, staff indicated that patient was exhibiting behavior like masturbating in her room, she was thinking that her son was there at one point. However, the patient insisted on leaving and so they let her go against medical advice and then they sent a police pickup letter, and so she was admitted again to the medical service on the same day, 09/07/2020. The patient has been exhibiting bizarre behavior, as I said they thought maybe polypharmacy was the problem and they have tried to adjust some of her medications without much results. Today, the patient is at first pleasant, cooperative, verbally spontaneous. She tells me that she is doing good. I asked her why she has been coming in and out of the hospital a lot and her answer to me was "because I live here." I asked her on four different occasions where she was, and each time she kept telling me that it was her home. I, at times, pointed out to her, well this appears to be a hospital to me, but she insisted, no, that it was her home. She was oriented to person, she was not oriented to time, she told me it was 08/01/2011 and, as I noted above, she was not oriented to place either. The patient denied having any problems with her moods or sleep or appetite. PAST PSYCHIATRIC HISTORY: It appears that she has only had the one psychiatric admission on 07/11/2020 that I referred to above. There is no history of her having hurt herself. Of note, is that she was started on Seroquel 25 mg nightly. FAMILY HISTORY: There does not appear to be any family psychiatric history. Family history of psychiatric illness is unknown. MEDICAL HISTORY: The patient has altered mental status, etiology is unknown. She does have some mild neurodegenerative disorder in her brain, MRI's indicate that, but this is felt to be disproportionate to the clinical picture. The patient has COPD and hypertension. MENTAL STATUS EXAMINATION: This patient is alert, she is oriented to person, the patient is not oriented to time, she keeps thinking that the hospital is her home. She was sitting very comfortably on the hospital bed and actually she was eating, appetite appeared to be fairly good. She says her mood is good. There is no formal thought disorder. Affect appeared to be appropriate. She was delusional, thinking that the hospital was her bed at home. She was not suicidal or homicidal. Concentration was fair. I am not able to formally test her memory as the patient was not cooperative with questions to evaluate her memory. However, in her records I did notice that the patient would do things like insisting that she had met one of the providers before and she had not. Insight and judgment is poor. DIAGNOSES: Delirium. Rule out neurocognitive disorder like possibly Alzheimer's. Rule out frontotemporal dementia. Of note, is that some of the behavior that I saw that was mentioned in her records was that the patient would do things at different times, the son has indicated that the patient has done things like forget the year, forget where her son lives. I was able to see the note done by Dr. Montano, her primary care provider. The son had reported that the patient had been wandering in the street with inappropriate clothing and was defecating in inappropriate places. Therefore, I feel that this patient has been suffering with chronic delirium versus dementia, possibly frontotemporal dementia, that has been going on for a few months. I do not feel that this patient, at this point, has the ability to make safe decisions about, for example, going home when she is then found wandering in the streets, for example, and has no recollection of this. It does not appear that this patient is safe to go home anymore and live independently. I did notice that the patient had been started on Seroquel 25 mg nightly and I agree with this treatment with Seroquel. Please re-consult if there is further problems. Thank you.
--- NOTE | 2020-09-11 11:46 | IPN ---
PROGRESS NOTE DATE: 09/11/2020 Genny is seen in [place]. She has had a consultation done by Dr. Daniels that has just become available. She feels patient has some frontotemporal dementia with chronic delirium, does not feel the patient has the ability to make safe decisions about going home, agrees with Seroquel 25 mg nightly. 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 PHYSICAL EXAMINATION: Afebrile, vital signs stable. She is alert, conversant, cooperative, looks anxious and on edge. Lungs: Clear. Heart: Regular rhythm. Abdomen: Soft, nontender. No peripheral edema. LABORATORY DATA: Electrolytes and CBC unremarkable. PLAN: 1. I would continue her Seroquel and see how she does as medicines that have been discontinued on admission work their way out of her system. She will need some patient and family services (PFS) support before discharge. 2. Hypertension. Blood pressure is well controlled on her current medicine. 3. Asthma. Stable, asymptomatic on her current medications.
[2020-09-11 14:00] VITALS: BP_SYST 108; BP_DIAS 64; BP_DIAS 66
[2020-09-11] MEDS: ACETAMINOPHEN TAB 650MG DOSE (2X325MG) PO PRN (20:11)
[2020-09-11 22:00] VITALS: BP 123/76
[2020-09-11] MEDS: RAMELTEON 8 MG TAB (ROZEREM) PO SCH (23:05)
[2020-09-12] MEDS: ACETAMINOPHEN TAB 650MG DOSE (2X325MG) PO PRN ×2 (00:46→19:50)
[2020-09-12] MEDS: HALOPERIDOL 5MG/ML VIAL (J1630 PER 1) IV PRN (04:17)
[2020-09-12 06:00] VITALS: BP 124/73
[2020-09-12] MEDS: TIOTROPIUM INHALER/CAPSULE (SPIRIVA) INH SCH (09:15)
[2020-09-12] MEDS: SYMBICORT 160/4.5MCG INHALER 6GM INH SCH ×2 (09:16→20:00)
[2020-09-12] MEDS: DOCUSATE SODIUM 100MG CAPSULE PO SCH ×2 (09:37→19:49)
[2020-09-12] MEDS: GABAPENTIN 100 MG CAP PO SCH (09:37)
[2020-09-12] MEDS: OMEPRAZOLE 20 MG CAP PO SCH (09:38)
[2020-09-12] MEDS: ATORVASTATIN 20 MG TAB PO SCH (09:38)
[2020-09-12] MEDS: PRIMIDONE 25MG PER 1/2 TABLET PO SCH ×2 (09:38→19:49)
[2020-09-12] MEDS: SPIRONOLACTONE 25 MG TAB PO SCH (09:38)
[2020-09-12] MEDS: QUEtiapine FUMARATE 25 MG TAB PO SCH (09:38)
[2020-09-12] MEDS: NICOTINE 7 MG/24 HR TRANSDERMAL TD SCH (09:39)
[2020-09-12] MEDS: ENOXAPARIN 40MG/0.4ML SYRINGE (J1650 PER 10MG) SC SCH (09:39)
[2020-09-12 14:00] VITALS: BP 118/71
[2020-09-12] MEDS: RAMELTEON 8 MG TAB (ROZEREM) PO SCH (19:49)
[2020-09-12 22:00] VITALS: BP 118/74
--- NOTE | 2020-09-13 | IPNPDOC ---
Text Note Date of Service The patient was seen on 09/12/20. NOTE SUBJECTIVE: Comfortable, no new complaints, walking the corridor. Wandering to other patient's rooms and wandering to different floor. She has a room in [address] where i saw her walking. Sometime later i saw coming down the back stairway and walking into PCU. Nursing staff guided her upstairs. She is pleasant and cooperative and follows guidance. Oriented only to person. She has not been needing any oxygen in the hospital. PHYSICAL EXAMINATION: VITAL SIGNS: Please see below. GENERAL: No distress HEENT: Normocephalic, atraumatic, moist mucous membranes NECK: Supple CARDIOVASCULAR EXAMINATION: S1, S2, no murmurs RESPIRATORY EXAMINATION: Poor air movement, no wheezing ABDOMINAL EXAMINATION: Soft, nontender, nondistended, positive bowel sounds EXTREMITIES: Range of motion intact, No edema SKIN: No rash NEUROLOGICAL EXAMINATION: Alert. but oriented x 1 PSYCHIATRIC EXAMINATION: Calm and cooperative LABORATORY DATA, IMAGING STUDIES, MICROBIOLOGY: Please see below. ASSESSMENT AND PLAN: 64-year-old female with multiple recent admissions for altered mental status, was previously been worked up by neurology/psychiatry is readmitted for altered mental status after being brought back by police. Altered mental status: As per Psych does not have decisional capacity and cannot go home alone anymore. Etiology unclear, multiple MRIs in July 2020 point against neurodegenerative disorder as the sole cause of her mentation as symptoms are disproportionate to what the imaging indicate. LP in Jul negative, CJD protein was negative. Chronic delirium vs Dementia frontotemporal/ Alzheimer As per psych not primary psychiatric disorder Could be polypharmacy EEG in Jul 2020 normal. on seroquel. Primidone is being weaned. gabapentin dose has been reduced. tizanidine and ropinirole stopped COPD Continue home Symbicort and Spiriva not needing any oxygen HFpEF continue spironolactone PVD atorvastatin Raynauds Phenomenon Cardizem RLS Was on ropinirole on 0.5/0.5/2 at home stopped now. tizanidine stopped. Will not restart it at all. Essential tremors primidone being weaned wa on . now on 25 bid. Peripheral polyneuropathy gabapentin 100 daily. GERD omeprazole DVT prophylaxis: Lovenox. GI prophylaxis: PPI VS,Fishbone, I+O VS, Fishbone, I+O Vital Signs Date Time Temp Pulse Resp B/P (MAP) Pulse Ox O2 Delivery O2 Flow Rate FiO2 09/12/20 14:00 97.6 93 18 118/71 (87) 92 Room Air I&O- Last 24 Hours up to 6 AM 09/12/20 07:00 Intake Total 2020 ml Output Total 0 ml Balance 2020 ml DON EPPS MD Sep 13, 2020 00:00
[2020-09-13 06:00] VITALS: BP 114/80
[2020-09-13 06:45] LABS: BASO # 0.1 10^3/uL (0.0-0.2); BASO % 0.4 % (0.0-1.0); EOS # 0.2 10^3/uL (0.0-0.5); EOS % 1.5 % (0.0-3.0); HEMATOCRIT 46.9 % (36.0-47.0); HEMOGLOBIN 14.6 g/dl (12.0-15.5); LYMPH # 2.3 10^3/uL (1.5-5.0); MEAN CORPUSCULAR HEMOGLOBIN 27.5 pg (27.0-33.0); MEAN CORPUSCULAR HGB CONC 31.1 g/dl (32.0-36.5); MEAN CORPUSCULAR VOLUME 88.5 fl (80.0-96.0); MONO # 1.1 10^3/uL (0.0-0.8); MONO % 8.7 % (0.0-5.0); NEUTROPHILS # 8.9 10^3/uL (1.5-8.5); NEUTROPHILS % 71.2 % (36.0-66.0); PLATELET COUNT, AUTOMATED 215 10^3/uL (150-450); WHITE BLOOD COUNT 12.5 10^3/uL (4.0-10.0)
[2020-09-13 07:05] LABS: BLOOD UREA NITROGEN 23 MG/DL (7-18); CALCIUM LEVEL 9.4 MG/DL (8.8-10.2); CARBON DIOXIDE LEVEL 33 MEQ/L (21-32); CHLORIDE LEVEL 107 MEQ/L (98-107); CREATININE FOR GFR 0.78 MG/DL (0.55-1.30); GLOMERULAR FILTRATION RATE > 60.0 (>45); GLUCOSE, FASTING 91 MG/DL (70-100); POTASSIUM SERUM 5.1 MEQ/L (3.5-5.1); SODIUM LEVEL 141 MEQ/L (136-145)
[2020-09-13] MEDS: SYMBICORT 160/4.5MCG INHALER 6GM INH SCH ×2 (07:11→20:56)
[2020-09-13] MEDS: TIOTROPIUM INHALER/CAPSULE (SPIRIVA) INH SCH (07:11)
[2020-09-13] MEDS: ATORVASTATIN 20 MG TAB PO SCH (09:20)
[2020-09-13] MEDS: ENOXAPARIN 40MG/0.4ML SYRINGE (J1650 PER 10MG) SC SCH (09:20)
[2020-09-13] MEDS: OMEPRAZOLE 20 MG CAP PO SCH (09:20)
[2020-09-13] MEDS: PRIMIDONE 25MG PER 1/2 TABLET PO SCH (09:21)
[2020-09-13] MEDS: SPIRONOLACTONE 25 MG TAB PO SCH (09:21)
[2020-09-13] MEDS: GABAPENTIN 100 MG CAP PO SCH (09:21)
[2020-09-13] MEDS: QUEtiapine FUMARATE 25 MG TAB PO SCH (09:21)
[2020-09-13] MEDS: DOCUSATE SODIUM 100MG CAPSULE PO SCH ×3 (09:21→20:56)
[2020-09-13] MEDS: NICOTINE 7 MG/24 HR TRANSDERMAL TD SCH (12:45)
[2020-09-13] MEDS: ACETAMINOPHEN TAB 650MG DOSE (2X325MG) PO PRN (15:33)
[2020-09-13] MEDS: RAMELTEON 8 MG TAB (ROZEREM) PO SCH ×3 (20:47→22:30)
[2020-09-13 22:00] VITALS: BP 133/76
[2020-09-14 06:00] VITALS: BP 114/73
[2020-09-14] MEDS: TIOTROPIUM INHALER/CAPSULE (SPIRIVA) INH SCH (06:15)
[2020-09-14] MEDS: SYMBICORT 160/4.5MCG INHALER 6GM INH SCH ×2 (06:15→20:36)
[2020-09-14] MEDS: NICOTINE 7 MG/24 HR TRANSDERMAL TD SCH (09:46)
[2020-09-14] MEDS: ENOXAPARIN 40MG/0.4ML SYRINGE (J1650 PER 10MG) SC SCH (09:46)
[2020-09-14] MEDS: GABAPENTIN 100 MG CAP PO SCH (09:47)
[2020-09-14] MEDS: DOCUSATE SODIUM 100MG CAPSULE PO SCH ×2 (09:47→22:00)
[2020-09-14] MEDS: SPIRONOLACTONE 25 MG TAB PO SCH (09:47)
[2020-09-14] MEDS: OMEPRAZOLE 20 MG CAP PO SCH (09:47)
[2020-09-14] MEDS: ATORVASTATIN 20 MG TAB PO SCH (09:47)
[2020-09-14] MEDS: QUEtiapine FUMARATE 25 MG TAB PO SCH (09:47)
[2020-09-14] MEDS: RAMELTEON 8 MG TAB (ROZEREM) PO SCH (22:00)
[2020-09-15 06:00] VITALS: BP 107/68
[2020-09-15] MEDS: TIOTROPIUM INHALER/CAPSULE (SPIRIVA) INH SCH (07:18)
[2020-09-15] MEDS: SYMBICORT 160/4.5MCG INHALER 6GM INH SCH ×2 (07:18→20:00)
[2020-09-15] MEDS ORDERED: QUET25TA3 PO (09:40)
[2020-09-15] MEDS ORDERED: BISACODYL 10 MG SUPP PR ONE (10:00)
--- NOTE | 2020-09-15 10:08 | DS.PDOC ---
Discharge Summary General Date of Admission Sep 07, 2020 at 22:01 Date of Discharge 09/15/20 Discharge Summary PROCEDURES PERFORMED DURING STAY: [None]. DISCHARGE DIAGNOSES: Dementia Chronic Delirium COPD CHF with preserved EF PVD Raynaud phenomenon RLS Peripheral neuropathy Essential tremors GERD COMPLICATIONS/CHIEF COMPLAINT: Altered Mental Status,Metabolic Encephalopathy. HOSPITAL COURSE: 64-year-old female with multiple recent admissions over the past 3 months for altered mental status, was previously been worked up by neurology/psychiatry is readmitted for altered mental status after being brought back by police. Altered mental status: Chronic delirium with Dementia frontotemporal/ Alzheimer As per Psych does not have decisional capacity and cannot go home alone anymore. Multiple MRIs in July 2020 point against neurodegenerative disorder as the sole cause of her mentation as symptoms are disproportionate to what the imaging indicate. Could be combination of Dementia with polypharmacy. Many medications have been slowly weaned off in the past 2 months. EEG in Jul 2020 normal. Lumber Puncture in Jul negative, CJD protein was negative. As per psych not primary psychiatric disorder on seroquel. gabapentin dose has been reduced. Primidone, tizanidine and ropinirole stopped COPD Continue home Symbicort and Spiriva not needing any oxygen HFpEF continue spironolactone PVD atorvastatin Raynauds Phenomenon Cardizem RLS Was on ropinirole on 0.5/0.5/2 at home stopped now. tizanidine stopped. Will not restart it at all. Essential tremors primidone being weaned off as per neurologist Should not be given any more. Peripheral polyneuropathy gabapentin 100 daily. GERD omeprazole DISCHARGE MEDICATIONS: Please see below. ALLERGIES: Please see below. PHYSICAL EXAMINATION ON DISCHARGE: VITAL SIGNS: Please see below. GENERAL: No distress HEENT: Normocephalic, atraumatic, moist mucous membranes NECK: Supple CARDIOVASCULAR EXAMINATION: S1, S2, no murmurs RESPIRATORY EXAMINATION: Poor air movement, no wheezing ABDOMINAL EXAMINATION: Soft, nontender, nondistended, positive bowel sounds EXTREMITIES: Range of motion intact, No edema SKIN: No rash NEUROLOGICAL EXAMINATION: Alert. but oriented x 1 PSYCHIATRIC EXAMINATION: Calm and cooperative LABORATORY DATA: Please see below. ACTIVITY: [As tolerated]. DIET: As tolerated DISCHARGE PLAN: [facility] DISCHARGE CONDITION: [Stable]. TIME SPENT ON DISCHARGE: 35 minutes. Vital Signs/I&Os Vital Signs Date Time Temp Pulse Resp B/P (MAP) Pulse Ox O2 Delivery O2 Flow Rate FiO2 09/15/20 06:00 98.0 81 18 107/68 (81) 97 09/13/20 06:00 Room Air I&O- Last 24 Hours up to 6 AM 09/15/20 06:00 Intake Total 1380 ml Output Total 0 ml Balance 1380 ml Microbiology Microbiology 09/15/20 Respiratory Virus Panel (PCR) ([facility]), Received Pending Discharge Medications Scheduled Atorvastatin Calcium (Atorvastatin Calcium) 40 Mg Tab, 40 MG PO DAILY, (Reported) Budesonide/Formoterol (Symbicort 160-4.5 Mcg Inhaler) 60 Puff/Inhaler Aers, 2 PUFF INH BID, (Reported) Diltiazem HCl (Diltiazem 24Hr ER) 120 Mg Cap.er.24h, 120 MG PO DAILY, (Reported) Ergocalciferol (Vitamin D2) (Vitamin D2) 50,000 Units Cap, 50,000 UNITS PO QWEEK, (Reported) FRIDAY Gabapentin (Gabapentin) 100 Mg Capsule, 100 MG PO DAILY, (Reported) ran out 09/05/20 pt's son believes pcp intended to wean off. Omeprazole (Omeprazole) 20 Mg Capsule.dr, 20 MG PO DAILY, (Reported) Quetiapine Fumarate (Quetiapine Fumarate) 25 Mg Tablet, 25 MG PO DAILY Ramelteon (Ramelteon) 8 Mg Tablet, 8 MG PO QHS Spironolactone (Spironolactone) 25 Mg Tablet, 25 MG PO DAILY, (Reported) Tiotropium [place] (Spiriva Respimat) 4 Gm Mist.inhal, 2 PUFFS INH DAILY, (Reported) Scheduled PRN Acetaminophen (Acetaminophen ER) 650 Mg Tablet.er, 650 MG PO TID PRN for PAIN, (Reported) Albuterol Sulfate (Ventolin Hfa) 18 Gm Hfa.aer.ad, 2 PUFF INH Q4H PRN for SOB/WHEEZING, (Reported) Allergies Coded Allergies: Sulfa (Sulfonamide Antibiotics) (Verified Allergy, Unknown, 07/21/20) DON EPPS MD Sep 15, 2020 10:08
[2020-09-15] MEDS: SPIRONOLACTONE 25 MG TAB PO SCH ×2 (13:33→20:11)
[2020-09-15] MEDS: ATORVASTATIN 20 MG TAB PO SCH (13:34)
[2020-09-15] MEDS: QUEtiapine FUMARATE 25 MG TAB PO SCH (13:34)
[2020-09-15] MEDS: GABAPENTIN 100 MG CAP PO SCH (13:34)
[2020-09-15] MEDS: DOCUSATE SODIUM 100MG CAPSULE PO SCH ×2 (13:34→20:10)
[2020-09-15] MEDS: ENOXAPARIN 40MG/0.4ML SYRINGE (J1650 PER 10MG) SC SCH (13:34)
[2020-09-15] MEDS: OMEPRAZOLE 20 MG CAP PO SCH (13:34)
[2020-09-15] MEDS: NICOTINE 7 MG/24 HR TRANSDERMAL TD SCH (13:35)
[2020-09-15] MEDS: RAMELTEON 8 MG TAB (ROZEREM) PO SCH (20:11)
[2020-09-15] MEDS: ACETAMINOPHEN TAB 650MG DOSE (2X325MG) PO PRN (20:11)
[2020-09-16 06:00] VITALS: BP 100/61
[2020-09-16] MEDS: SYMBICORT 160/4.5MCG INHALER 6GM INH SCH ×2 (08:48→20:42)
[2020-09-16] MEDS: TIOTROPIUM INHALER/CAPSULE (SPIRIVA) INH SCH (08:49)
[2020-09-16] MEDS: NICOTINE 7 MG/24 HR TRANSDERMAL TD SCH (10:09)
[2020-09-16] MEDS: ATORVASTATIN 20 MG TAB PO SCH (10:10)
[2020-09-16] MEDS: ENOXAPARIN 40MG/0.4ML SYRINGE (J1650 PER 10MG) SC SCH (10:10)
[2020-09-16] MEDS: OMEPRAZOLE 20 MG CAP PO SCH (10:10)
[2020-09-16] MEDS: QUEtiapine FUMARATE 25 MG TAB PO SCH (10:10)
[2020-09-16] MEDS: DOCUSATE SODIUM 100MG CAPSULE PO SCH ×2 (10:10→19:44)
[2020-09-16] MEDS: GABAPENTIN 100 MG CAP PO SCH (10:10)
[2020-09-16] MEDS: SPIRONOLACTONE 25 MG TAB PO SCH ×2 (10:10→19:44)
[2020-09-16 10:12] VITALS: BP 122/69
[2020-09-16] MEDS: RAMELTEON 8 MG TAB (ROZEREM) PO SCH (19:44)
[2020-09-17 06:00] VITALS: BP 114/67
[2020-09-17] MEDS: TIOTROPIUM INHALER/CAPSULE (SPIRIVA) INH SCH (08:00)
[2020-09-17] MEDS: SYMBICORT 160/4.5MCG INHALER 6GM INH SCH ×2 (08:00→20:00)
[2020-09-17] MEDS: QUEtiapine FUMARATE 25 MG TAB PO SCH ×2 (09:00→10:22)
[2020-09-17] MEDS: OMEPRAZOLE 20 MG CAP PO SCH ×2 (09:00→10:22)
[2020-09-17] MEDS: GABAPENTIN 100 MG CAP PO SCH ×2 (09:00→10:22)
[2020-09-17] MEDS: SPIRONOLACTONE 25 MG TAB PO SCH ×3 (09:00→20:17)
[2020-09-17] MEDS: ENOXAPARIN 40MG/0.4ML SYRINGE (J1650 PER 10MG) SC SCH ×2 (09:00→10:21)
[2020-09-17] MEDS: DOCUSATE SODIUM 100MG CAPSULE PO SCH ×3 (09:00→20:17)
[2020-09-17] MEDS: NICOTINE 7 MG/24 HR TRANSDERMAL TD SCH (09:00)
[2020-09-17] MEDS: ATORVASTATIN 20 MG TAB PO SCH ×2 (09:00→10:22)
[2020-09-17] MEDS: RAMELTEON 8 MG TAB (ROZEREM) PO SCH (21:00)
[2020-09-18 06:00] VITALS: BP 129/73
[2020-09-18] MEDS: SYMBICORT 160/4.5MCG INHALER 6GM INH SCH (06:27)
[2020-09-18] MEDS: TIOTROPIUM INHALER/CAPSULE (SPIRIVA) INH SCH (06:27)
[2020-09-18] MEDS ORDERED: RAME8TAB2 PO (08:25)
[2020-09-18] MEDS: ATORVASTATIN 20 MG TAB PO SCH (10:26)
[2020-09-18] MEDS: GABAPENTIN 100 MG CAP PO SCH (10:26)
[2020-09-18] MEDS: DOCUSATE SODIUM 100MG CAPSULE PO SCH (10:26)
[2020-09-18] MEDS: OMEPRAZOLE 20 MG CAP PO SCH (10:26)
[2020-09-18] MEDS: QUEtiapine FUMARATE 25 MG TAB PO SCH (10:26)
[2020-09-18] MEDS: SPIRONOLACTONE 25 MG TAB PO SCH (10:26)
[2020-09-18] MEDS: NICOTINE 7 MG/24 HR TRANSDERMAL TD SCH (10:27)
[2020-09-18] MEDS: ENOXAPARIN 40MG/0.4ML SYRINGE (J1650 PER 10MG) SC SCH (10:27)
--- NOTE | 2020-09-18 11:15 | DS.PDOC ---
Discharge Summary General Date of Admission Sep 07, 2020 at 22:01 Date of Discharge 09/18/20 Discharge Summary PROCEDURES PERFORMED DURING STAY: [None]. DISCHARGE DIAGNOSES: Dementia Chronic Delirium COPD CHF with preserved EF PVD Raynaud phenomenon RLS Peripheral neuropathy Essential tremors GERD COMPLICATIONS/CHIEF COMPLAINT: Altered Mental Status,Metabolic Encephalopathy. HOSPITAL COURSE: 64-year-old female with multiple recent admissions over the past 3 months for altered mental status, was previously been worked up by neurology/psychiatry is readmitted for altered mental status after being brought back by police. She has been calm and cooperative over the weekend. She is independent in her ADLS. Altered mental status: Chronic delirium with Dementia frontotemporal/ Alzheimer As per Psych does not have decisional capacity and cannot go home alone anymore. Multiple MRIs in July 2020 point against neurodegenerative disorder as the sole cause of her mentation as symptoms are disproportionate to what the imaging indicate. Could be combination of Dementia with polypharmacy. Many medications have been slowly weaned off in the past 2 months. EEG in Jul 2020 normal. Lumber Puncture in Jul negative, CJD protein was negative. As per psych not primary psychiatric disorder on seroquel. gabapentin dose has been reduced. Primidone, tizanidine and ropinirole stopped COPD Continue home Symbicort and Spiriva not needing any oxygen HFpEF continue spironolactone PVD atorvastatin Raynauds Phenomenon Cardizem RLS Was on ropinirole on 0.5/0.5/2 at home stopped now. tizanidine stopped. Will not restart it at all. Essential tremors primidone being weaned off as per neurologist Should not be given any more. Peripheral polyneuropathy gabapentin 100 daily. GERD omeprazole DISCHARGE MEDICATIONS: Please see below. ALLERGIES: Please see below. PHYSICAL EXAMINATION ON DISCHARGE: VITAL SIGNS: Please see below. GENERAL: No distress HEENT: Normocephalic, atraumatic, moist mucous membranes NECK: Supple CARDIOVASCULAR EXAMINATION: S1, S2, no murmurs RESPIRATORY EXAMINATION: Poor air movement, no wheezing ABDOMINAL EXAMINATION: Soft, nontender, nondistended, positive bowel sounds EXTREMITIES: Range of motion intact, No edema SKIN: No rash NEUROLOGICAL EXAMINATION: Alert. but oriented x 1 PSYCHIATRIC EXAMINATION: Calm and cooperative LABORATORY DATA: Please see below. ACTIVITY: [As tolerated]. DIET: As tolerated DISCHARGE PLAN: [facility] DISCHARGE CONDITION: [Stable]. TIME SPENT ON DISCHARGE: 35 minutes. Vital Signs/I&Os Vital Signs Date Time Temp Pulse Resp B/P (MAP) Pulse Ox O2 Delivery O2 Flow Rate FiO2 09/18/20 06:00 97.5 73 16 129/73 (91) 95 Room Air I&O- Last 24 Hours up to 6 AM 09/18/20 06:00 Intake Total 674 ml Output Total 0 ml Balance 674 ml Microbiology Microbiology 09/15/20 Respiratory Virus Panel (PCR) ([facility]) - Final, Complete Discharge Medications Scheduled Atorvastatin Calcium (Atorvastatin Calcium) 40 Mg Tab, 40 MG PO DAILY, (Reported) Budesonide/Formoterol (Symbicort 160-4.5 Mcg Inhaler) 60 Puff/Inhaler Aers, 2 PUFF INH BID, (Reported) Diltiazem HCl (Diltiazem 24Hr ER) 120 Mg Cap.er.24h, 120 MG PO DAILY, (Reported) Ergocalciferol (Vitamin D2) (Vitamin D2) 50,000 Units Cap, 50,000 UNITS PO QWEEK, (Reported) FRIDAY Gabapentin (Gabapentin) 100 Mg Capsule, 100 MG PO DAILY, (Reported) ran out 09/05/20 pt's son believes pcp intended to wean off. Omeprazole (Omeprazole) 20 Mg Capsule.dr, 20 MG PO DAILY, (Reported) Quetiapine Fumarate (Quetiapine Fumarate) 25 Mg Tablet, 25 MG PO DAILY Ramelteon (Ramelteon) 8 Mg Tablet, 8 MG PO QHS Spironolactone (Spironolactone) 25 Mg Tablet, 25 MG PO DAILY, (Reported) Tiotropium [place] (Spiriva Respimat) 4 Gm Mist.inhal, 2 PUFFS INH DAILY, (Reported) Scheduled PRN Acetaminophen (Acetaminophen ER) 650 Mg Tablet.er, 650 MG PO TID PRN for PAIN, (Reported) Albuterol Sulfate (Ventolin Hfa) 18 Gm Hfa.aer.ad, 2 PUFF INH Q4H PRN for SOB/WHEEZING, (Reported) Allergies Coded Allergies: Sulfa (Sulfonamide Antibiotics) (Verified Allergy, Unknown, 07/21/20) DON EPPS MD Sep 18, 2020 11:15
--- NOTE | 2020-09-18 11:47 | REP ---
INDICATION: required by [facility] STAT. COMPARISON: October 29, 2016.. TECHNIQUE: Supine portable radiographs of the abdomen and pelvis, two views. FINDINGS: Bowel gas pattern is unremarkable. Air and stool is seen in a normal caliber proximal and distal colon. No small or large bowel dilation is seen. Flank stripes are intact. Psoas margins are obscured. There are degenerative changes in the lumbar spine. No mass, organomegaly, or pathologic calcification is seen. IMPRESSION: Normal bowel gas pattern. <Electronically signed by Archie Blackburn > 09/18/20 [id number]
== END 2020-09-18 12:05 | DRG 57 ==
LOC: M ED 20:04 → M ED INP 22:01 → M MSPAV 22:35
PROVIDERS: ADMIT Family Medicine; ATTEND Internal Medicine Nephrology
DX: G31.09 Other frontotemporal neurocognitive disorder (principal); I50.32 Chronic diastolic (congestive) heart failure; F02.81 Dementia in other diseases classified elsewhere, unspecified severity, with behavioral disturbance; G25.0 Essential tremor; G62.9 Polyneuropathy, unspecified; G30.9 Alzheimer's disease, unspecified; I73.00 Raynaud's syndrome without gangrene; R41.0 Disorientation, unspecified; F17.200 Nicotine dependence, unspecified, uncomplicated; K21.9 Gastro-esophageal reflux disease without esophagitis; J44.9 Chronic obstructive pulmonary disease, unspecified; J45.909 Unspecified asthma, uncomplicated; I11.0 Hypertensive heart disease with heart failure; Z79.899 Other long term (current) drug therapy; Z88.2 Allergy status to sulfonamides